=== PATIENT | female | born 1935 | race Caucasian/White ===

== ENCOUNTER 2016-10-01 09:40 | Outpatient (CLI) | payer MEDICARE, OTHER | END 2016-10-01 09:41 | disposition home or self-care (01) | DX: M79.605 Pain in left leg (principal); G83.10 Monoplegia of lower limb affecting unspecified side; F03.90 Unspecified dementia, unspecified severity, without behavioral disturbance, psychotic disturbance, mood disturbance, and anxiety; R26.89 Other abnormalities of gait and mobility ==

== ENCOUNTER 2016-10-04 13:43 | Outpatient (CLI) | payer MEDICARE, OTHER | END 2016-10-04 13:44 | disposition home or self-care (01) | DX: N64.4 Mastodynia (principal) ==

== ENCOUNTER 2017-08-10 01:10 | Inpatient (IN) | payer MEDICARE, OTHER ==
--- NOTE | 2017-08-10 01:39 | ED Physician Documentation ---
PD HPI GI BLEED - Stated complaint Stated Complaint: GI BLEED - Chief complaint Chief Complaint: Abd Pain - History obtained from History obtained from: Patient, Family - History of Present Illness Timing - onset: Today, How many days ago (has had dark stool for few days, with change from firm to soft/diarrheal stools this morning, and with nausea/ vomiting and coffee-ground emesis today into this evening. Noted onset of swelling of lower lip and has sore throat the past hour or two.) Timing - duration: Days (for dark stool, but just today for vomiting coffeeground material and having upper abd pain.) Timing - details: Gradual onset, Still present Associated symptoms: Vomiting, Coffee ground emesis, BRBPR (more today), Black/ tarry stool (few days), Abdominal pain (epigastric today after vomiting). No: Constipation, Near syncope / syncope, Loss of appetite Contributing factors: No: Sick contact, Bad food, Travel, Recent antibiotics, Alcohol use, NSAID use Improved by: Vomiting Worsened by: Eating Similar symptoms before: Has not had sx before Recently seen: Not recently seen Review of Systems Constitutional: denies: Fever, Chills Nose: denies: Rhinorrhea / runny nose, Congestion Throat: denies: Sore throat Cardiac: denies: Chest pain / pressure Respiratory: denies: Cough GI: reports: Abdominal Pain, Nausea, Vomiting, Hematemesis, Bloody / black stool : denies: Dysuria, Frequency Skin: denies: Rash, Lesions Neurologic: reports: Generalized weakness. denies: Focal weakness, Numbness, Near syncope, Altered mental status, Headache Endocrine: denies: Weight loss, Easy bruising / bleeding Immunocompromised: denies: Immunocompromised PD PAST MEDICAL HISTORY - Past Medical History Cardiovascular: Hypertension, Angina Endocrine/Autoimmune: None GI: Chronic constipation TEST MAN: Ectopic : Incontinence, Chronic bladder infection HEENT: None Psych: Depression, Anxiety, Panic attacks Musculoskeletal: None Derm: None - Past Surgical History Past Surgical History: Yes General: Colonoscopy /TEST MAN: Hysterectomy HEENT: Cataracts, Tonsil/Adenoidectomy - Present Medications Home Medications: Ambulatory Orders Medication Instructions Recorded Confirmed Amlodipine Besylate 5 mg PO DAILY 04/28/13 08/10/17 Cholecalciferol (Vitamin D3) 2,000 unit PO DAILY 04/28/13 08/10/17 [Vitamin D] Ezetimibe/Simvastatin [Vytorin 1 each PO DAILY 04/28/13 08/10/17 10-40 mg Tablet] FLUoxetine [PROzac] 20 mg PO DAILY 04/28/13 08/10/17 Lisinopril [Zestril] 10 mg PO DAILY 04/28/13 08/10/17 Omeprazole [PriLOSEC] 20 mg PO DAILY 04/28/13 08/10/17 Triamterene/Hydrochlorothiazid 1 each PO DAILY 04/28/13 08/10/17 [Triamterene-Hctz 37.5-25 mg Tb] - Allergies Allergies/Adverse Reactions: Allergies Allergy/AdvReac Type Severity Reaction Status Date / Time No Known Drug Allergies Allergy Verified 08/10/17 01:21 - Social History Does the pt smoke?: Yes Smoking Status: Current every day smoker Does the pt drink ETOH?: Yes Does the pt have substance abuse?: No - Family History Family history: reports: Non contributory PD ED PE NORMAL - Vitals Vital signs reviewed: Yes - General General: Alert and oriented X 3, Well developed/nourished, Other (appears nauseated and has emesis of coffeeground material which is gastroccult positive during interview. ) - HEENT HEENT: No: Pharynx benign (there is mild edema of lower lip without apparent injury. There is mild edema of uvula. Pallate and posterior pharynx as well as tongue do not look swollen. ) - Neck Neck: Supple, no meningeal sign, No adenopathy - Cardiac Cardiac: RRR, No murmur - Respiratory Respiratory: Clear bilaterally - Abdomen Abdomen: Normal bowel sounds, Soft, Non distended, No organomegaly, Other (mild epigastric tenderness without guarding. ) - Female Female : Deferred - Rectal Rectal: Deferred - Back Back: No CVA TTP - Derm Derm: Normal color, Warm and dry - Extremities Extremities: No deformity, No tenderness to palpate, Normal ROM s pain, No edema - Neuro Neuro: Alert and oriented X 3, No motor deficit, Normal speech - Psych Psych: Normal mood, Normal affect Results - Vitals Vitals: Vital Signs - 24 hr 08/10/17 08/10/17 08/10/17 01:17 01:40 02:49 Temperature 36.9 C Heart Rate 93 92 91 Respiratory 18 15 12 Rate Blood Pressure 155/74 H 150/72 H 156/70 H O2 Saturation 97 100 98 Oxygen O2 Source Room air - Labs Labs: Laboratory Tests 08/10/17 08/10/17 08/10/17 01:30 01:30 01:30 WBC 14.2 H RBC 4.99 Hgb 15.4 Hct 45.8 MCV 91.8 MCH 30.8 MCHC 33.6 RDW 13.7 Plt Count 250 MPV 7.9 Neut # Not Reportable Lymph # Not Reportable Hall # Not Reportable Eos # Not Reportable Baso # Not Reportable Absolute Nucleated RBC Not Reportable Total Counted 100 Band Neuts % (Manual) 3 Nucleated RBC % Not Reportable Neutrophils # (Manual) 13.3 H Lymphocytes # (Manual) 0.3 L Monocytes # (Manual) 0.6 Differential Comment MANUAL DIFFERENTIAL Platelet Estimate NORMAL (130-450,000) RBC Morph Micro Appear NORMAL APPEARANCE Sodium 138 Potassium 3.4 L Chloride 103 Carbon Dioxide 22 Anion Gap 13.0 BUN 21 H Creatinine 0.8 Estimated GFR (MDRD) 69 L Glucose 195 H Calcium 9.6 Magnesium 1.9 Total Bilirubin 0.5 AST 26 ALT 17 Alkaline Phosphatase 92 Total Protein 7.7 Albumin 4.4 Globulin 3.3 Albumin/Globulin Ratio 1.3 Lipase 15 L H. pylori IgG Antibody Negative Blood Type Antibody Screen 08/10/17 02:25 WBC RBC Hgb Hct MCV MCH MCHC RDW Plt Count MPV Neut # Lymph # Hall # Eos # Baso # Absolute Nucleated RBC Total Counted Band Neuts % (Manual) Nucleated RBC % Neutrophils # (Manual) Lymphocytes # (Manual) Monocytes # (Manual) Differential Comment Platelet Estimate RBC Morph Micro Appear Sodium Potassium Chloride Carbon Dioxide Anion Gap BUN Creatinine Estimated GFR (MDRD) Glucose Calcium Magnesium Total Bilirubin AST ALT Alkaline Phosphatase Total Protein Albumin Globulin Albumin/Globulin Ratio Lipase H. pylori IgG Antibody Blood Type O POSITIVE Antibody Screen NEGATIVE PD MEDICAL DECISION MAKING - ED course Complexity details: reviewed results (blood count is okay. Vitals are stable. Less nauseated with meds. So concern for ongoing bleeding and watching blood count/vitals, and also concern for apparent angioedema. I don't see it related to GI bleed per se. She is on Lisinopril and consider if caused by that as associated with acute other illness, or allergic reaction perhaps. So treated with antihistamine and steroid. Treated stomach with Famotidine for stomach/ allergic reaction both. ), re-evaluated patient, considered differential, d/w patient, d/w jewelry consultant (Dr. Pimentel, Hospitalist. ) Departure - Departure Disposition: ED Place in Observation Clinical Impression: Hematemesis with nausea GI bleeding Qualifiers: GI bleed type/associated pathology: unspecified gastrointestinal hemorrhage type Qualified Code(s): K92.2 - Gastrointestinal hemorrhage, unspecified Angioedema Qualifiers: Encounter type: initial encounter Qualified Code(s): T78.3XXA - Angioneurotic edema, initial encounter Condition: Stable Record reviewed to determine appropriate education?: Yes
[2017-08-10] MEDS ORDERED: SODIUM CHLORIDE 0.9% 1,000 ML IV ONE (02:10)
[2017-08-10] MEDS ORDERED: diphenhydrAMINE INJ 50 MG/ML VIAL IVP STA (02:10)
[2017-08-10] MEDS ORDERED: FAMOTIDINE 20 MG/50 ML 50 ML IV ONE ×2 (02:10→02:20)
[2017-08-10] MEDS ORDERED: DEXAMETHASONE 10 MG/ML VIAL IVP STA (02:10)
[2017-08-10] MEDS ORDERED: ONDANSETRON 4 MG/2 ML VIAL IVP STA (02:11)
[2017-08-10] MEDS ORDERED: LIDOCAINE VISCOUS 2% 15 ML UDC MM STA (02:13)
[2017-08-10] MEDS ORDERED: MAG HYDROX/AL HYDROX/SIMETH 30 ML UDC PO STA (02:13)
[2017-08-10] MEDS ORDERED: ONDANSETRON 4 MG/2 ML VIAL ONE (02:20)
[2017-08-10] MEDS ORDERED: diphenhydrAMINE INJ 50 MG/ML VIAL ONE (02:20)
[2017-08-10] MEDS ORDERED: DEXAMETHASONE 10 MG/ML VIAL ONE (02:20)
[2017-08-10 02:25] LABS: BASOPHILS % (AUTO) 0.1 %; HCT - HEMATOCRIT 45.8 % (37.0-47.0); HGB - HEMOGLOBIN 15.4 g/dL (12.0-16.0); LYMPHOCYTES % (AUTO) 2.5 %; MEAN CORPUSCULAR HEMOGLOBIN 30.8 pg (27.0-31.0); MEAN CORPUSCULAR HGB CONC 33.6 g/dL (32.0-36.0); MEAN CORPUSCULAR VOLUME 91.8 fL (81.0-99.0); MEAN PLATELET VOLUME 7.9 fL (7.9-10.8); MONOCYTES % (AUTO) 2.2 %; NEUTROPHILS % (AUTO) 95.2 %; RED BLOOD COUNT 4.99 10^6/uL (4.20-5.40); RED CELL DISTRIBUTION WIDTH 13.7 % (12.0-15.0); UNCORRECTED WHITE BLOOD COUNT 14.2 x10^3/uL; WHITE BLOOD COUNT 14.2 x10^3/uL (4.8-10.8)
[2017-08-10 02:29] LABS: ALBUMIN/GLOBULIN RATIO 1.3 (1.0-2.2); BILIRUBIN,TOTAL 0.5 mg/dL (0.2-1.0); CALCIUM 9.6 mg/dL (8.5-10.3); CREATININE 0.8 mg/dL (0.4-1.0); MAGNESIUM 1.9 mg/dL (1.7-2.8); POTASSIUM 3.4 mmol/L (3.5-5.0); TOTAL PROTEIN 7.7 g/dL (6.7-8.2)
[2017-08-10] MEDS ORDERED: LIDOCAINE VISCOUS 2% 15 ML UDC MM ONE (02:35)
[2017-08-10] MEDS ORDERED: MAG HYDROX/AL HYDROX/SIMETH 30 ML UDC ONE (02:35)
[2017-08-10 02:42] LABS: H. PYLORI IGG ANTIBODY Negative (Negative); HPYLORI NEG QC Negative (Negative); HPYLORI POS QC POSITIVE (Positive)
[2017-08-10 02:51] LABS: BAND NEUTROPHILS % (MANUAL) 3 %; LYMPHOCYTES % (MANUAL) 2 %; NEUTROPHILS % (MANUAL) 91 %; NP AUTO DIFFERENTIAL? YES; NP MAN DIFFERENTIAL? NO; PLATELET ESTIMATE, MANUAL NORMAL (130-450,000) (NORMAL); TOTAL CELLS COUNTED 100
[2017-08-10] MEDS ORDERED: HYDROcod/ACETAM 5/325 MG TABLET PO PRN (03:03)
[2017-08-10] MEDS ORDERED: PROCHLORPERAZINE 10 MG/2 ML VIAL IVP PRN (03:03)
[2017-08-10] MEDS ORDERED: PROMETHAZINE 25 MG/1 ML VIAL IM PRN (03:03)
[2017-08-10] MEDS ORDERED: SODIUM CHLORIDE FLUSH 0.9% 10 ML SYRINGE IVP PRN (03:03)
[2017-08-10] MEDS ORDERED: ONDANSETRON 4 MG/2 ML VIAL IVP PRN (03:03)
[2017-08-10] MEDS ORDERED: HYDROcod/ACETAM 10 MG/325 MG TABLET PO PRN (03:03)
[2017-08-10] MEDS ORDERED: ACETAMINOPHEN 325 MG TABLET PO PRN (03:03)
[2017-08-10] MEDS ORDERED: SODIUM CHLORIDE 0.9% 1,000 ML IV SCH ×2 (04:00→19:00)
[2017-08-10] MEDS ORDERED: POTASSIUM CHLORIDE 20 MEQ TABLET PO STA (04:51)
--- NOTE | 2017-08-10 05:10 | HISTORY & PHYSICAL EXAMINATION ---
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 According to the patient and her family the patient has been having dark stools for the last 3-4 days. She states that today the symptoms became much worse and she began having diarrhea with bloody stools and vomiting with coffee ground emesis. The patient states that she also began having a cough after vomiting last night. She states that she has had a sore throat. The patient's family state they have noticed that she has been increasingly fatigued over the last 3 or 4 days and has not been sleeping well. According to the patient's family the patient has also experienced a 25 pound weight loss over the last year which they attributed to her donepezil. They noticed that when the patient was coughing up there was some blood and they also noted that her emesis was coffee ground almost black looking. The patient's did look at the patient's bowel movement which he states was a bloody brown color. After arrival to the emergency department the family also noticed that the patient had swelling of the bottom of her lip but the patient denied any difficulties swallowing or feeling of her throat closing on her. The patient also denied any hives or itching. Patient denies any headaches, blurred vision, runny nose, chest pain, shortness of air, fevers, chills, she does have some mild abdominal pain in the epigastric area. She denies any constipation, urinary urgency, urinary frequency or dysuria. The patient denies any muscle aches, joint pains, joint swelling, back pain, neck stiffness, changes in appetite or any focal neurologic deficits. On presentation to the emergency department the patient was afebrile, tachycardic with heart rate in the 90s and hypertensive without any respiratory distress. The patient did have an episode of emesis with coffee-ground emesis which was guaiac positive. The patient's hemoglobin however was stable at 15.4. The patient did have a mild leukocytosis of 14.2 with a left shift. The patient's lab work did reveal a slight hypokalemia of 3.4 and an elevated glucose of 195. The patient denied any history of diabetes. The patient's H. pylori was negative. The patient remained tachycardic in the 90s but blood pressure remained stable. The patient was placed in observation for a likely upper GI bleed. Patient was given a PPI in the emergency department. History - Past Medical History Cardiovascular: reports: Hypertension, Angina Respiratory: reports: None Neuro: reports: Dementia, Fainting Endocrine/Autoimmune: reports: None GI: reports: Chronic constipation PODIATRIST ORTHOPEDIC: reports: Ectopic : reports: Incontinence, Chronic bladder infection HEENT: reports: None Psych: reports: Depression, Anxiety, Panic attacks Musculoskeletal: reports: Other (Thrombophlebitis) Derm: reports: None MRSA Hx?: No Other Past Medical History: Dementia, blood clots in left leg 2 years had veins cauterized and been better since. - Past Surgical History General: reports: Colonoscopy /PODIATRIST ORTHOPEDIC: reports: Hysterectomy Cardiovascular: reports: Vascular surgery HEENT: reports: Cataracts, Tonsil/Adenoidectomy - Family & Social History Family History: Mother: (Mother of a pulmonary embolism, Grandmother lived to be 102), Father: , [place] (Father of an SD at the age of 41), Brother: Alive and Well (Brother had polio), Other family: Living arrangement: At home Living Situation: With spouse/s.o. Social History Notes: The patient is originally from [place] she has been to her for 50 years. Her was in the [employer] and they have been living in [facility] since 1965. They currently live in [place]. The patient has 2 children 1 of whom is bedside. The patient has never smoked, she does like to drink wine in the evening and denies any illicit drug use. - POLST Patient has POLST: No POLST Status: Full Code Meds/Allgy - Home Medications Home Medications: Ambulatory Orders Medication Instructions Recorded Confirmed Amlodipine Besylate 5 mg PO DAILY 04/28/13 08/10/17 Cholecalciferol (Vitamin D3) 2,000 unit PO DAILY 04/28/13 08/10/17 [Vitamin D] Ezetimibe/Simvastatin [Vytorin 1 each PO DAILY 04/28/13 08/10/17 10-40 mg Tablet] FLUoxetine [PROzac] 20 mg PO DAILY 04/28/13 08/10/17 Lisinopril [Zestril] 10 mg PO DAILY 04/28/13 08/10/17 Omeprazole [PriLOSEC] 20 mg PO DAILY 04/28/13 08/10/17 Triamterene/Hydrochlorothiazid 1 each PO DAILY 04/28/13 08/10/17 [Triamterene-Hctz 37.5-25 mg Tb] - Allergies Allergies/Adverse Reactions: Allergies Allergy/AdvReac Type Severity Reaction Status Date / Time No Known Drug Allergies Allergy Verified 08/10/17 01:21 Review of Systems - Other Findings Other Findings: A comprehensive review of systems was performed the pertinent positives and negatives are stated above in the HPI and the remainder of the review of systems is negative. Exam - Vital Signs Reviewed Vital Signs: Yes Vital Signs: Vital Signs x48h Pulse Resp BP Pulse Ox 08/10/17 03:59 86 18 147/84 H 100 08/10/17 03:27 93 19 153/67 H 98 - Physical Exam General Appearance: positive: No acute distress, Alert Eyes Bilateral: positive: Normal inspection, PERRL, EOMI, No lid inflammation, Conjunctivae nml, No scleral icterus ENT: positive: Pharynx nml, Dry mucous membranes, Other (Patient has a swollen lower lip and mild swelling of her uvula but no swelling of her tongue). negative: Purulent nasal drainage, Pharyngeal erythema, Oral lesions Neck: positive: Nml inspection, Thyroid nml, No JVD, Trachea midline. negative : Thyromegaly, Lymphadenopathy (R), Lymphadenopathy (L), Carotid bruit, Tracheal deviation Respiratory: positive: Chest non-tender, No respiratory distress, Breath sounds nml. negative: Wheezes, Rales, Rhonchi Cardiovascular: positive: No murmur, No gallop, Tachycardia Peripheral Pulses: positive: 2+ Abdomen: positive: No organomegaly, Nml bowel sounds, No distention, Tenderness (Mild tenderness in the epigastric region with no peritoneal signs). negative: Guarding, Rebound, Hepatomegaly Rectal: positive: Bloody stool Back: positive: Nml inspection. negative: CVA tenderness (R), CVA tenderness (L ) Skin: positive: Color nml, No rash, Dry. negative: Cyanosis, Pallor Extremities: positive: Non-tender, Full ROM, Nml appearance, No pedal edema Neurologic/Psychiatric: positive: Oriented x3, CN's nml (2-12), Motor nml, Sensation nml, Mood/affect nml, Other (Memory deficit due to dementia) Conclusion/Plan - Problem List (1) GI bleeding Conclusion/Plan: The patient presented with black stools for 3 or 4 days and increased generalized fatigue. The patient had bowel movement with bloody stools and has been having vomiting with coffee-ground emesis today. The patient's emesis was guaiac positive. The patient's hemoglobin is stable and blood pressure are stable. Patient most likely appears to be having an upper GI bleed given the coffee-ground emesis and dark stools. The GI bleed may be worsening as she had bright red blood according to the . Plan: 2 large-bore IVs Monitor H&H every 6 hours Transfuse if hemoglobin less than 7 or if patient becomes hemodynamically stable with large drop in hemoglobin Place on IV Protonix twice daily Surgery consult for possible EGD and/or colonoscopy N.p.o. after midnight IV antiemetics IV fluid Qualifiers: GI bleed type/associated pathology: unspecified gastrointestinal hemorrhage type Qualified Code(s): K92.2 - Gastrointestinal hemorrhage, unspecified (2) Angioedema Conclusion/Plan: Patient appears to have mild angioedema on examination. She has swelling of her lower lip and uvula. The patient was given a dose of steroid and famotidine in the emergency department. The swelling appears to be stable and she does not have any difficulties in breathing or swallowing. The patient also has no tongue swelling and no hives or itching. She is on lisinopril and it is possible that in the setting of stress with a GI bleed this may have set off the angioedema. For now we will hold the patient's lisinopril and continue a PPI. I will not place her on any further steroids given that she is having a possible GI bleed. Qualifiers: Encounter type: initial encounter Qualified Code(s): T78.3XXA - Angioneurotic edema, initial encounter (3) Hypokalemia Conclusion/Plan: The patient's potassium on presentation is 3.4. This is likely secondary to the patient's nausea and vomiting. The patient will be given p.o. replacement for her potassium. We will continue to monitor the patient's potassium (4) Hypertension Conclusion/Plan: The patient has history of hypertension on presentation to the emergency department the patient does have an elevated blood pressure however given the GI bleed we will hold all antihypertensive medications unless patient's blood pressure become significantly elevated as we are concerned for possibility of hypotension. The patient will no longer be placed on lisinopril given her mild angioedema on presentation. Qualifiers: Hypertension type: essential hypertension Qualified Code(s): I10 - Essential (primary) hypertension (5) Depression Conclusion/Plan: Patient has history of depression and is on Prozac at home. We will continue the patient's home dose of Prozac. (6) Hyperglycemia Conclusion/Plan: The patient's blood glucose is elevated on presentation at 195. This could be a stress response as she does not have any previous history of diabetes. We will check her hemoglobin A1c and hold off on any insulin or glucose checks at this time until her A1c is back. - Lab Results Lab results reviewed: Yes Fish Bones: 08/10/17 01:30 08/10/17 01:30 Other Lab Results: Laboratory Results WBC 14.2 x10^3/uL (4.8-10.8) H 08/10/17 01:30 RBC 4.99 10^6/uL (4.20-5.40) 08/10/17 01:30 Hgb 15.4 g/dL (12.0-16.0) 08/10/17 01:30 Hct 45.8 % (37.0-47.0) 08/10/17 01:30 MCV 91.8 fL (81.0-99.0) 08/10/17 01:30 MCH 30.8 pg (27.0-31.0) 08/10/17 01:30 MCHC 33.6 g/dL (32.0-36.0) 08/10/17 01:30 RDW 13.7 % (12.0-15.0) 08/10/17 01:30 Plt Count 250 10^3/uL (130-450) 08/10/17 01:30 MPV 7.9 fL (7.9-10.8) 08/10/17 01:30 Neut # Not Reportable 08/10/17 01:30 Lymph # Not Reportable 08/10/17 01:30 Orange # Not Reportable 08/10/17 01:30 Eos # Not Reportable 08/10/17 01:30 Baso # Not Reportable 08/10/17 01:30 Absolute Nucleated RBC Not Reportable 08/10/17 01:30 Total Counted 100 08/10/17 01:30 Band Neuts % (Manual) 3 % (0-10) 08/10/17 01:30 Nucleated RBC % Not Reportable 08/10/17 01:30 Neutrophils # (Manual) 13.3 10^3/uL (1.5-6.6) H 08/10/17 01:30 Lymphocytes # (Manual) 0.3 10^3/uL (1.5-3.5) L 08/10/17 01:30 Monocytes # (Manual) 0.6 10^3/uL (0.0-1.0) 08/10/17 01:30 Differential Comment MANUAL DIFFERENTIAL 08/10/17 01:30 Platelet Estimate NORMAL (130-450,000) (NORMAL) 08/10/17 01:30 RBC Morph Micro Appear NORMAL APPEARANCE (NORMAL) 08/10/17 01:30 Sodium 138 mmol/L (135-145) 08/10/17 01:30 Potassium 3.4 mmol/L (3.5-5.0) L 08/10/17 01:30 Chloride 103 mmol/L (101-111) 08/10/17 01:30 Carbon Dioxide 22 mmol/L (21-32) 08/10/17 01:30 Anion Gap 13.0 (6-13) 08/10/17 01:30 BUN 21 mg/dL (6-20) H 08/10/17 01:30 Creatinine 0.8 mg/dL (0.4-1.0) 08/10/17 01:30 Estimated GFR (MDRD) 69 (>89) L 08/10/17 01:30 Glucose 195 mg/dL (70-100) H 08/10/17 01:30 Calcium 9.6 mg/dL (8.5-10.3) 08/10/17 01:30 Magnesium 1.9 mg/dL (1.7-2.8) 08/10/17 01:30 Total Bilirubin 0.5 mg/dL (0.2-1.0) 08/10/17 01:30 AST 26 IU/L (10-42) 08/10/17 01:30 ALT 17 IU/L (10-60) 08/10/17 01:30 Alkaline Phosphatase 92 IU/L (42-121) 08/10/17 01:30 Total Protein 7.7 g/dL (6.7-8.2) 08/10/17 01:30 Albumin 4.4 g/dL (3.2-5.5) 08/10/17 01:30 Globulin 3.3 g/dL (2.1-4.2) 08/10/17 01:30 Albumin/Globulin Ratio 1.3 (1.0-2.2) 08/10/17 01:30 Lipase 15 U/L (22-51) L 08/10/17 01:30 H. pylori IgG Antibody Negative (Negative) 08/10/17 01:30 Blood Type O POSITIVE 08/10/17 02:25 Antibody Screen NEGATIVE 08/10/17 02:25 - Diagnostic Imaging Results Diagnostic Imaging Results Comments: No imaging studies were performed - EKG Results EKG Findings: No EKG Issues/Core Measures - Anticipated LOS Anticipated Stay Length: Less than 2 midnights - DVT/VTE - Prophylaxis VTE/DVT Device ordered at admit?: Yes
[2017-08-10] MEDS: PHENOL THROAT SPRAY 177 ML MM PRN (05:41)
[2017-08-10] MEDS: SODIUM CHLORIDE FLUSH 0.9% 10 ML SYRINGE IVP SCH ×3 (05:45→21:48)
[2017-08-10 05:59] LABS: BASOPHILS % (AUTO) 0.1 %; HCT - HEMATOCRIT 44.4 % (37.0-47.0); HGB - HEMOGLOBIN 14.6 g/dL (12.0-16.0); LYMPHOCYTES % (AUTO) 2.1 %; MEAN CORPUSCULAR HEMOGLOBIN 30.3 pg (27.0-31.0); MEAN CORPUSCULAR HGB CONC 32.9 g/dL (32.0-36.0); MEAN CORPUSCULAR VOLUME 92.1 fL (81.0-99.0); MEAN PLATELET VOLUME 7.5 fL (7.9-10.8); NEUTROPHILS % (AUTO) 96.8 %; RED BLOOD COUNT 4.82 10^6/uL (4.20-5.40); RED CELL DISTRIBUTION WIDTH 13.8 % (12.0-15.0); UNCORRECTED WHITE BLOOD COUNT 14.1 x10^3/uL; WHITE BLOOD COUNT 14.1 x10^3/uL (4.8-10.8)
[2017-08-10 06:07] LABS: ALBUMIN/GLOBULIN RATIO 1.3 (1.0-2.2); BILIRUBIN,TOTAL 0.7 mg/dL (0.2-1.0); CREATININE 0.7 mg/dL (0.4-1.0); POTASSIUM 3.3 mmol/L (3.5-5.0); TOTAL PROTEIN 7.4 g/dL (6.7-8.2)
[2017-08-10 06:10] LABS: INR 1.2 (0.8-1.2); PT - PROTHROMBIN TIME 13.6 secs (9.9-12.6)
[2017-08-10] MEDS ORDERED: MAGIC MOUTHWASH 120 ML BOTTLE PO PRN (06:10)
[2017-08-10 06:43] LABS: HEMOGLOBIN A1C 0.57 g/dL
[2017-08-10 06:53] LABS: BAND NEUTROPHILS % (MANUAL) 12 %; LYMPHOCYTES % (MANUAL) 2 %; NEUTROPHILS % (MANUAL) 85 %; NP AUTO DIFFERENTIAL? YES; NP MAN DIFFERENTIAL? NO; PLATELET ESTIMATE, MANUAL NORMAL (130-450,000) (NORMAL); TOTAL CELLS COUNTED 100
[2017-08-10] MEDS: POTASSIUM CHLOR 10 MEQ/100 ML 10 MEQ/100 ML BAG IV SCH ×2 (07:57→08:24)
--- NOTE | 2017-08-10 07:57 | XRAY Preliminary Report ---
Exam: XR CHEST 1 VIEW IMPRESSION: 1. Small lung volumes. 2. Small left lateral lung base opacity, probably a atelectasis. Concurrent aspiration and/or pneumon ia difficult to exclude with certainty. 3. Medium-sized hiatal hernia. [facility] SITE ID: [id number]
--- NOTE | 2017-08-10 08:00 | XRAY Report ---
EXAM: CHEST RADIOGRAPHY EXAM DATE: 08/10/2017 06:22 AM. CLINICAL HISTORY: Left sided rib pain. COMPARISON: 04/28/2013 TECHNIQUE: 1 view. FINDINGS: Lungs/Pleura: Small streaky left lateral lung base opacity. Lung volumes are small. No effusion or de finite pneumothorax. Mediastinum: Within exam limitations, the cardiomediastinal contour is normal. Other: Medial sized hiatal hernia. IMPRESSION: 1. Small lung volumes. 2. Small left lateral lung base opacity, probably a atelectasis. Concurrent aspiration and/or pneumon ia difficult to exclude with certainty. 3. Medium-sized hiatal hernia. [facility] Referring Provider Line: [phone] SITE ID: [id number]
[2017-08-10] MEDS: PANTOPRAZOLE 40 MG VIAL IVP SCH ×2 (08:14→21:48)
[2017-08-10] MEDS: POLYETHYLENE GLYCOL 3350 17 GM PACKET PO SCH (08:15)
[2017-08-10 11:10] LABS: BASOPHILS # (AUTO) 0.1 10^3/uL (0.0-0.1); BASOPHILS % (AUTO) 0.6 %; EOSINOPHILS % (AUTO) 0.3 %; HCT - HEMATOCRIT 41.6 % (37.0-47.0); HGB - HEMOGLOBIN 14.1 g/dL (12.0-16.0); LYMPHOCYTES # (AUTO) 0.4 10^3/uL (1.5-3.5); LYMPHOCYTES % (AUTO) 3.3 %; MEAN CORPUSCULAR HEMOGLOBIN 30.7 pg (27.0-31.0); MEAN CORPUSCULAR HGB CONC 33.9 g/dL (32.0-36.0); MEAN CORPUSCULAR VOLUME 90.7 fL (81.0-99.0); MEAN PLATELET VOLUME 7.6 fL (7.9-10.8); MONOCYTES # (AUTO) 0.3 10^3/uL (0.0-1.0); MONOCYTES % (AUTO) 2.6 %; NEUTROPHILS % (AUTO) 93.2 %; RED BLOOD COUNT 4.58 10^6/uL (4.20-5.40); RED CELL DISTRIBUTION WIDTH 13.8 % (12.0-15.0); UNCORRECTED WHITE BLOOD COUNT 12.9 x10^3/uL; WHITE BLOOD COUNT 12.9 x10^3/uL (4.8-10.8)
[2017-08-10] MEDS ORDERED: HALOPERIDOL 5 MG/ML VIAL IVP SCH ×2 (13:18→19:59)
[2017-08-10] MEDS ORDERED: OLANZapine 10 MG VIAL IM SCH (14:27)
[2017-08-10] MEDS ORDERED: IOPAMIDOL-300 100 ML VIAL ONE (15:36)
[2017-08-10] MEDS ORDERED: IOPAMIDOL-300 100 ML VIAL IVP ONE ×2 (16:22→16:30)
--- NOTE | 2017-08-10 16:57 | CT Report ---
EXAM: CT ABDOMEN WITHOUT AND WITH CONTRAST EXAM DATE: 08/10/2017 04:20 PM. HISTORY: GI bleed, weight loss. COMPARISON: CT abdomen/pelvis 05/18/2013. TECHNIQUE: Routine helical CT imaging was performed through the abdomen before and after administrati on of IV contrast: 75ML OF ISOVUE 300. Enteric contrast: No. Reconstruction: Coronal and sagittal. In accordance with CT protocol optimization, one or more of the following dose reduction techniques w ere utilized for this exam: automated exposure control, adjustment of mA and/or KV based on patient s ize, or use of iterative reconstructive technique. FINDINGS: Lung Bases: Mild bibasal atelectasis or infiltrate. Liver: Normal. No masses. Gallbladder/Bile Ducts: Unremarkable. Spleen: Normal. Pancreas: Normal. No masses or ductal obstruction. Adrenal Glands: Normal. Kidneys: No hydronephrosis or convincing solid mass. Bilateral renal cortical hypodensities, similar to prior suggestive of cysts. Peritoneal Cavity/Bowel: There is a moderate to large esophageal hiatal hernia. There is possible wal l thickening and intraluminal irregularity. There is mild diverticulosis without convincing focal bibi dence of acute diverticulitis. There is diffuse colonic wall thickening involving the splenic flexure through the proximal sigmoid colon, suggesting nonspecific colitis. No pneumatosis. No pneumoperiton eum. No organized fluid collection. Small bowel is unremarkable. The appendix is well visualized and normal. Vasculature: No aneurysms or other significant abnormality. Celiac artery, SMA, NOVA appear patent. No portal venous gas. Portal vein and hepatic veins appear patent. Bones: No significant abnormality. Other: None. IMPRESSION: Comparison CT 05/18/2013. 1. Diffuse descending and proximal sigmoid colonic wall thickening suggesting nonspecific colitis. Co nsider infectious, inflammatory etiologies. Ischemia considered less likely. 2. Moderate to large esophageal hiatal hernia with possible wall thickening and intraluminal irregula rity. Endoscopic and/or fluoroscopic upper GI examination could be considered for further evaluation. 3. Mild bibasal atelectasis or infiltrate. 4. Other findings as noted above. [facility] Referring Provider Line: [phone] SITE ID: [id number]
[2017-08-10 17:08] LABS: BASOPHILS # (AUTO) 0.1 10^3/uL (0.0-0.1); BASOPHILS % (AUTO) 0.5 %; HCT - HEMATOCRIT 41.1 % (37.0-47.0); HGB - HEMOGLOBIN 13.6 g/dL (12.0-16.0); LYMPHOCYTES # (AUTO) 0.5 10^3/uL (1.5-3.5); LYMPHOCYTES % (AUTO) 3.7 %; MEAN CORPUSCULAR HEMOGLOBIN 30.5 pg (27.0-31.0); MEAN CORPUSCULAR VOLUME 92.3 fL (81.0-99.0); MEAN PLATELET VOLUME 7.7 fL (7.9-10.8); MONOCYTES # (AUTO) 0.6 10^3/uL (0.0-1.0); MONOCYTES % (AUTO) 4.5 %; NEUTROPHILS % (AUTO) 91.3 %; RED BLOOD COUNT 4.46 10^6/uL (4.20-5.40); RED CELL DISTRIBUTION WIDTH 13.8 % (12.0-15.0); UNCORRECTED WHITE BLOOD COUNT 14.2 x10^3/uL; WHITE BLOOD COUNT 14.2 x10^3/uL (4.8-10.8)
[2017-08-10 18:31] LABS: BILIRUBIN,URINE NEGATIVE (NEGATIVE); PH,URINE 6.5 PH (5.0-7.5)
[2017-08-10 18:32] LABS: UA CHARGE (STRIP ONLY) YES; UR CULTURE IF IND NOT INDICATED
[2017-08-10] MEDS ORDERED: LORazepam 2 MG/ML SYRINGE IVP SCH (20:00)
[2017-08-10] MEDS: metroNIDAZOLE 500 MG/100 ML 500 MG/100 ML BAG IV SCH (20:26)
[2017-08-10] MEDS ORDERED: LORazepam 2 MG/ML SYRINGE ONE (20:30)
[2017-08-10] MEDS ORDERED: CIPROFLOXACIN 400 MG/200 ML 200 ML IV SCH (21:00)
[2017-08-11] MEDS: metroNIDAZOLE 500 MG/100 ML 500 MG/100 ML BAG IV SCH ×4 (03:07→20:27)
[2017-08-11] MEDS: SODIUM CHLORIDE FLUSH 0.9% 10 ML SYRINGE IVP SCH ×3 (04:51→20:28)
[2017-08-11] MEDS ORDERED: LORazepam 2 MG/ML SYRINGE IVP STA (06:01)
[2017-08-11 06:08] LABS: BASOPHILS % (AUTO) 0.1 %; CALCIUM 8.8 mg/dL (8.5-10.3); CREATININE 0.7 mg/dL (0.4-1.0); EOSINOPHILS % (AUTO) 0.1 %; HCT - HEMATOCRIT 36.8 % (37.0-47.0); HGB - HEMOGLOBIN 12.2 g/dL (12.0-16.0); LYMPHOCYTES # (AUTO) 0.9 10^3/uL (1.5-3.5); LYMPHOCYTES % (AUTO) 7.9 %; MEAN CORPUSCULAR HEMOGLOBIN 30.6 pg (27.0-31.0); MEAN CORPUSCULAR HGB CONC 33.1 g/dL (32.0-36.0); MEAN CORPUSCULAR VOLUME 92.5 fL (81.0-99.0); MEAN PLATELET VOLUME 7.8 fL (7.9-10.8); MONOCYTES # (AUTO) 0.7 10^3/uL (0.0-1.0); MONOCYTES % (AUTO) 6.1 %; NEUTROPHILS # (AUTO) 9.7 10^3/uL (1.5-6.6); NEUTROPHILS % (AUTO) 85.8 %; POTASSIUM 3.3 mmol/L (3.5-5.0); RED BLOOD COUNT 3.98 10^6/uL (4.20-5.40); RED CELL DISTRIBUTION WIDTH 14.2 % (12.0-15.0); UNCORRECTED WHITE BLOOD COUNT 11.2 x10^3/uL; WHITE BLOOD COUNT 11.2 x10^3/uL (4.8-10.8)
[2017-08-11] MEDS ORDERED: LORazepam 2 MG/ML VIAL ONE (06:16)
[2017-08-11] MEDS ORDERED: LORazepam 0.5 MG TABLET PO ONE (11:18)
--- NOTE | 2017-08-11 11:23 | PROVIDER PROGRESS NOTE ---
Assessment/Plan - Problem List (1) Colitis Assessment/Plan: CT of abdomen shows diffuse colitis. loss control consultant is following, appreciate his input, believes this is ischemic colitis. Pt will need bowel rest, iv hydration, follow labs and WBC. Continue iv fluids. Pt will need a secure iv line. I have asked Anesthesia to place a PICC line. (2) Bloody diarrhea Assessment/Plan: No diarrhea until this am, which I saw: BRBPR and semiformed small loose brown BM. The patient "thinks" it was a slightly painful BM. RN says Pt was not appearing in pain during BM. Will send for cultures and treat as above. (3) Hiatal hernia Assessment/Plan: The reports that she has significant GERD and that she was not taking her acid dairy management specialist for the past 1 week, because "she forgot to fill her med hiolder with this". This suggests that the patient is too forgetful to be in charge of her medication administration. Continue PPI and symptomatic care (GI cocktail vs Magic mouthwash). (4) Vomiting Assessment/Plan: No further N/V. Pt is hoarse today after vomiting 2 days ago, suggesting she has acid reflux or more than 1 vomiting episode. Continue PPI (5) Acute hyperactive delirium due to multiple etiologies Assessment/Plan: Last night, the pt had typical "sun downing" in a demented Pt. Will order meds prn and ask for family's assistance with re-orienting her as "sun downing" recurs. (6) Dementia Assessment/Plan: The reports that the Pt has been on various doses of various dementia meds for the past 1 year, but got side effects and tthey were stopped. I will schedule Ativan or Zyprexa prn "sun downing". I advised the to have family take turns staying with Pt in her hospital room, which he agrees to. - Current Meds Current Meds: Current Medications Generic Name Dose Route Start Last Admin Trade Name Freq PRN Reason Stop Dose Admin Acetaminophen/Hydrocodone Bitart 1 tab 08/10/17 03:03 08/10/17 16:31 [place] 5/325 PO 1 tab Q4HR PRN Administration Pain 5 to 7 Ciprofloxacin 200 mls @ 200 mls/hr 08/10/17 21:00 08/10/17 23:07 Cipro 400 Mg/200 Ml IV Infused Q12H SHERRY Infusion Metronidazole 500 mg in 100 mls @ 100 mls/hr 08/10/17 20:00 08/11/17 04:07 Flagyl 500 Mg/100 Ml IV Infused Q6H SHERRY Infusion Multi-Ingredient Mouthwash/Gargle 30 ml 08/10/17 06:10 08/10/17 08:19 PO 30 ml Q4H PRN Administration Mouth Sore Pain Pantoprazole Sodium 40 mg 08/10/17 09:00 08/10/17 21:48 Protonix IVP 40 mg BID SHERRY Administration Phenol/Menthol 2 sprays 08/10/17 05:28 08/10/17 05:41 Chloraseptic MM 2 sprays Q2HR PRN Administration Throat Pain Polyethylene Glycol 17 gm 08/10/17 09:00 08/10/17 08:15 Miralax PO 17 gm DAILY SHERRY Administration Sodium Chloride 10 ml 08/10/17 06:00 08/11/17 04:51 Normal Saline Flush 0.9% IVP Not Given Q8HR SHERRY - Lab Result Fish Bone Diagrams: 08/11/17 05:32 08/11/17 05:32 - Additional Planning My Orders: My Active Orders 08/10/17 18:23 Straight Catheter Insertion [RC] ONCE 08/11/17 10:18 Admit \\ Transfer \\ Status [RC] .ONCE 08/11/17 11:15 PICC Line Care [RC] Q4H PICC Line Insert [RC] .ONCE 08/11/17 12:00 D5ns W/20 Meq KCl 1,000 ml IV 80 mls/hr 08/11/17 Breakfast Clear Liquid Diet [DIET] Subjective - Subjective Patient Reports: Other (Pt speaking with hoarse voice is in the rrom , both sitting up. Pt realizes she is in a hospital today. She does not remember being admitted, pulling out 2 ivs, walking in hallway, or being agitated.) Nursing Reports: Other (Overnite pt was confused, pulling at bedding, pulled out iv twice, c/o "throat fullness" and occaisional cough.) Objective Vital Signs: Vital Signs - 24 hr 08/10/17 08/10/17 08/10/17 12:00 14:30 14:34 Temperature 37.5 C 37.1 C Heart Rate [ 95 85 Radial] Respiratory 14 14 Rate Blood Pressure 129/66 153/65 H 129/66 [Left Brachial artery] O2 Saturation 95 08/11/17 08/11/17 05:42 09:50 Temperature 36.8 C 36.5 C Heart Rate [ 78 83 Radial] Respiratory 18 16 Rate Blood Pressure 126/48 L 137/72 H [Left Brachial artery] O2 Saturation 92 91 L Oxygen O2 Source Room air I&O (Last 24 Hrs): Intake and Output Totals x24h 08/09/17 08/10/17 08/11/17 23:59 23:59 23:59 Intake Total 3920 390 Output Total 451 Balance 3469 390 General: Alert HEENT: Mucous membr. moist/pink, Other (Hoarseness.) Neck: Supple, No JVD Neuro: Disoriented Cardiovascular: Regular rate Respiratory: No respiratory distress Abdomen: Soft Extremities: No edema - Results Results: Laboratory Results WBC 11.2 x10^3/uL (4.8-10.8) H 08/11/17 05:32 RBC 3.98 10^6/uL (4.20-5.40) L 08/11/17 05:32 Hgb 12.2 g/dL (12.0-16.0) 08/11/17 05:32 Hct 36.8 % (37.0-47.0) L 08/11/17 05:32 MCV 92.5 fL (81.0-99.0) 08/11/17 05:32 MCH 30.6 pg (27.0-31.0) 08/11/17 05:32 MCHC 33.1 g/dL (32.0-36.0) 08/11/17 05:32 RDW 14.2 % (12.0-15.0) 08/11/17 05:32 Plt Count 226 10^3/uL (130-450) 08/11/17 05:32 MPV 7.8 fL (7.9-10.8) L 08/11/17 05:32 Neut # 9.7 10^3/uL (1.5-6.6) H 08/11/17 05:32 Lymph # 0.9 10^3/uL (1.5-3.5) L 08/11/17 05:32 [place] # 0.7 10^3/uL (0.0-1.0) 08/11/17 05:32 Eos # 0.0 10^3/uL (0.0-0.7) 08/11/17 05:32 Baso # 0.0 10^3/uL (0.0-0.1) 08/11/17 05:32 Absolute Nucleated RBC 0.00 x10^3/uL 08/11/17 05:32 Total Counted 100 08/10/17 05:48 Band Neuts % (Manual) 12 % (0-10) H 08/10/17 05:48 Nucleated RBC % 0.0 /100WBC 08/11/17 05:32 Neutrophils # (Manual) 13.7 10^3/uL (1.5-6.6) H 08/10/17 05:48 Lymphocytes # (Manual) 0.3 10^3/uL (1.5-3.5) L 08/10/17 05:48 Monocytes # (Manual) 0.1 10^3/uL (0.0-1.0) 08/10/17 05:48 Differential Comment MANUAL DIFFERENTIAL 08/10/17 05:48 Platelet Estimate NORMAL (130-450,000) (NORMAL) 08/10/17 05:48 RBC Morph Micro Appear NORMAL APPEARANCE (NORMAL) 08/10/17 05:48 PT 13.6 secs (9.9-12.6) H 08/10/17 05:48 INR 1.2 (0.8-1.2) 08/10/17 05:48 Sodium 144 mmol/L (135-145) 08/11/17 05:32 Potassium 3.3 mmol/L (3.5-5.0) L 08/11/17 05:32 Chloride 112 mmol/L (101-111) H 08/11/17 05:32 Carbon Dioxide 26 mmol/L (21-32) 08/11/17 05:32 Anion Gap 6.0 (6-13) 08/11/17 05:32 BUN 14 mg/dL (6-20) 08/11/17 05:32 Creatinine 0.7 mg/dL (0.4-1.0) 08/11/17 05:32 Estimated GFR (MDRD) 80 (>89) L 08/11/17 05:32 Glucose 105 mg/dL (70-100) H 08/11/17 05:32 Glycated Hemoglobin 5.4 % (4.6-6.2) 08/10/17 05:48 Estim Average Glucose 108 (70-100) H 08/10/17 05:48 Calcium 8.8 mg/dL (8.5-10.3) 08/11/17 05:32 Magnesium 1.9 mg/dL (1.7-2.8) 08/10/17 01:30 Total Bilirubin 0.7 mg/dL (0.2-1.0) 08/10/17 05:48 AST 26 IU/L (10-42) 08/10/17 05:48 ALT 16 IU/L (10-60) 08/10/17 05:48 Alkaline Phosphatase 81 IU/L (42-121) 08/10/17 05:48 Total Protein 7.4 g/dL (6.7-8.2) 08/10/17 05:48 Albumin 4.2 g/dL (3.2-5.5) 08/10/17 05:48 Globulin 3.2 g/dL (2.1-4.2) 08/10/17 05:48 Albumin/Globulin Ratio 1.3 (1.0-2.2) 08/10/17 05:48 Lipase 15 U/L (22-51) L 08/10/17 01:30 Urine Color YELLOW 08/10/17 18:27 Urine Clarity CLEAR (CLEAR) 08/10/17 18:27 Urine pH 6.5 PH (5.0-7.5) 08/10/17 18:27 Ur Specific [place] 1.015 (1.002-1.030) 08/10/17 18:27 Urine Protein NEGATIVE mg/dL (NEGATIVE) 08/10/17 18:27 Urine Glucose (UA) NEGATIVE mg/dL (NEGATIVE) 08/10/17 18:27 Urine Ketones NEGATIVE mg/dL (NEGATIVE) 08/10/17 18:27 Urine Occult Blood TRACE-INTA (NEGATIVE) 08/10/17 18:27 Urine Nitrite NEGATIVE (NEGATIVE) 08/10/17 18:27 Urine Bilirubin NEGATIVE (NEGATIVE) 08/10/17 18:27 Urine Urobilinogen 0.2 (NORMAL) E.U./dL (NORMAL) 08/10/17 18:27 Ur Leukocyte Esterase NEGATIVE (NEGATIVE) 08/10/17 18:27 Ur Microscopic Review NOT INDICATED 08/10/17 18:27 Urine Culture Comments NOT INDICATED 08/10/17 18:27 H. pylori IgG Antibody Negative (Negative) 08/10/17 01:30 Blood Type O POSITIVE 08/10/17 02:25 Antibody Screen NEGATIVE 08/10/17 02:25 - Procedures Procedures: Procedures CATARAC PHACOEMULS/ASPIR (07/13/14) INSERT LENS AT CATAR EXT (07/13/14)
[2017-08-11] MEDS: POLYETHYLENE GLYCOL 3350 17 GM PACKET PO SCH (12:16)
[2017-08-11] MEDS: D5NS W/20 MEQ KCL 1,000 ML IV SCH (13:18)
[2017-08-11] MEDS: PANTOPRAZOLE 40 MG VIAL IVP SCH ×2 (13:20→20:28)
--- NOTE | 2017-08-11 13:37 | XRAY Report ---
FRONTAL CHEST: 08/11/2017 CLINICAL INDICATION: PICC placement. COMPARISON: 08/10/2017. FINDINGS: Frontal view of the chest demonstrates a right arm PICC terminating at the cavoatrial junc tion. The cardiac silhouette is not enlarged. A hiatal hernia is again noted. Basilar atelectasis is present. IMPRESSION: RIGHT ARM PICC TERMINATING AT THE CAVOATRIAL JUNCTION. JOB #: [id number] EXT JOB #:[id number]
[2017-08-11] MEDS: CIPROFLOXACIN 400 MG/200 ML 200 ML IV SCH (14:21)
[2017-08-11] MEDS ORDERED: LORazepam 2 MG/ML VIAL IVP PRN (16:15)
[2017-08-11] MEDS: GI COCKTAIL 120 ML BOTTLE PO SCH (20:10)
--- NOTE | 2017-08-11 23:13 | PROVIDER PROGRESS NOTE ---
Subjective - General Admit Date: 08/10/17 - Review of Systems Psychiatric: positive: Confusion Objective - Patient Data Vital Signs: Vital Signs x48h Temp Pulse Resp BP Pulse Ox 08/11/17 21:20 68 18 96 08/11/17 21:15 36.7 C 74 16 131/44 H 88 L Intake & Output: Intake and Output Totals x24h 08/09/17 08/10/17 08/11/17 23:59 23:59 23:59 Intake Total 2800 1040 Output Total 450 Balance 2350 1040 - Lab Results Lab Results: 08/11/17 05:32 08/11/17 05:32 Other Lab Results: Lab Results x24hrs 08/11/17 08/11/17 08/10/17 Range/Units 05:32 05:32 10:50 WBC 11.2 H (4.8-10.8) x10^3/uL RBC 3.98 L (4.20-5.40) 10^6/uL Hgb 12.2 (12.0-16.0) g/dL Hct 36.8 L (37.0-47.0) % MCV 92.5 (81.0-99.0) fL MCH 30.6 (27.0-31.0) pg MCHC 33.1 (32.0-36.0) g/dL RDW 14.2 (12.0-15.0) % Plt Count 226 (130-450) 10^3/uL MPV 7.8 L (7.9-10.8) fL Neut # 9.7 H (1.5-6.6) 10^3/uL Lymph # 0.9 L (1.5-3.5) 10^3/uL [place] # 0.7 (0.0-1.0) 10^3/uL Eos # 0.0 (0.0-0.7) 10^3/uL Baso # 0.0 (0.0-0.1) 10^3/uL Absolute Nucleated RBC 0.00 x10^3/uL Nucleated RBC % 0.0 /100WBC Sodium 144 (135-145) mmol/L Potassium 3.3 L (3.5-5.0) mmol/L Chloride 112 H (101-111) mmol/L Carbon Dioxide 26 (21-32) mmol/L Anion Gap 6.0 (6-13) BUN 14 (6-20) mg/dL Creatinine 0.7 (0.4-1.0) mg/dL Estimated GFR (MDRD) 80 L (>89) Glucose 105 H (70-100) mg/dL Calcium 8.8 (8.5-10.3) mg/dL Stool Leukocytes, Qual POSITIVE (Negative) - Imaging Results Radiology Imaging: positive: See rad report (CT scan of abdomen/pelvis showing thickening of the left colon. Also large hiatal hernia being present.) - Current Medications Current Medications: Current Medications Generic Name Dose Route Start Last Admin Trade Name Freq PRN Reason Stop Dose Admin Acetaminophen/Hydrocodone Bitart 1 tab 08/10/17 03:03 08/10/17 16:31 [place] 5/325 PO 1 tab Q4HR PRN Administration Pain 5 to 7 Metronidazole 500 mg in 100 mls @ 100 mls/hr 08/10/17 20:00 08/11/17 21:00 Flagyl 500 Mg/100 Ml IV Infused Q6H SHERRY Infusion Potassium Chloride/Dextrose/Sod Cl 1,000 mls @ 80 mls/hr 08/11/17 12:00 08/11 13:18 IV 80 mls/hr .[id number] SHERRY Administration Ciprofloxacin 200 mls @ 200 mls/hr 08/11/17 14:00 08/11/17 15:26 Cipro 400 Mg/200 Ml IV Infused Q12H SHERRY Infusion Multi-Ingredient Mouthwash/Gargle 30 ml 08/10/17 06:10 08/10/17 08:19 PO 30 ml Q4H PRN Administration Mouth Sore Pain Multi-Ingredient Mouthwash/Gargle 30 ml 08/11/17 20:00 08/11/17 20:10 PO Not Given 0800,1500,2000 SHERRY Pantoprazole Sodium 40 mg 08/10/17 09:00 08/11/17 20:28 Protonix IVP 40 mg BID SHERRY Administration Phenol/Menthol 2 sprays 08/10/17 05:28 08/10/17 05:41 Chloraseptic MM 2 sprays Q2HR PRN Administration Throat Pain Polyethylene Glycol 17 gm 08/10/17 09:00 08/11/17 12:16 Miralax PO Not Given DAILY SHERRY Sodium Chloride 10 ml 08/10/17 03:03 08/11/17 20:28 Normal Saline Flush 0.9% IVP 10 ml PRN PRN Administration NEEDED PER PROVIDER ORDERS Sodium Chloride 10 ml 08/10/17 06:00 08/11/17 20:28 Normal Saline Flush 0.9% IVP 10 ml Q8HR SHERRY Administration - Physical Exam Abdomen: positive: Other (Patient confused/uncooperative so cannot fully assess the abdominal. No obvious abdominal tenderness.) Impression/Plan - Problem List Problem List: 1) abdominal pain/blood in stool with ct showing thickening of the left colon. This most likely represents ischemic colitis. Reocmmend medical management at this time with being adequately hydrated. Due to her mental state, she needs to be continued to be watched in the hospital. She will need an outpatient colonoscopy. 2) Possible ugi bleed with vomiting dark fluid possibly coffee ground. Hgb down slightly most likely secondary to hydration. Follow H&H. This possible could be related to the large hiatal hernia. Recommend continue PPIs. Due to mouth swelling, recommend delaying EGD as long as she remains stable having it done as outpatient.
[2017-08-12] MEDS: CIPROFLOXACIN 400 MG/200 ML 200 ML IV SCH ×2 (02:24→14:31)
[2017-08-12] MEDS: metroNIDAZOLE 500 MG/100 ML 500 MG/100 ML BAG IV SCH ×4 (03:25→21:49)
[2017-08-12] MEDS: D5NS W/20 MEQ KCL 1,000 ML IV SCH ×2 (05:11→21:49)
[2017-08-12] MEDS: SODIUM CHLORIDE FLUSH 0.9% 10 ML SYRINGE IVP SCH ×3 (05:12→20:12)
[2017-08-12] MEDS: PHENOL THROAT SPRAY 177 ML MM PRN (05:40)
--- NOTE | 2017-08-12 07:51 | PROVIDER PROGRESS NOTE ---
Subjective - Prog Note Date Prog Note Date: 08/12/17 Prog Note Time: 07:51 - Subjective Subjective: she c/o sore throat, hurts to swallow cough is congested and mildly productive denies sob or chest pain. she denies abd pain right this moment and looks puzzled. doesn't remember being in pain. also doesnt' remember the BM from yesterday. Thinks her last BM was >5 days ago. Current Medications - Current Medications Current Medications: Active Medications Acetaminophen (Tylenol) 650 mg PO Q4HR PRN PRN Reason: Pain 1 to 4 Acetaminophen/Hydrocodone Bitart ([place] 5/325) 1 tab PO Q4HR PRN PRN Reason: Pain 5 to 7 Last Admin: 08/10/17 16:31 Dose: 1 tab Acetaminophen/Hydrocodone Bitart ([place] 10 Mg/325 Mg) 1 tab PO Q4HR PRN PRN Reason: Pain 8 to 10 Metronidazole (Flagyl 500 Mg/100 Ml) 500 mg in 100 mls @ 100 mls/hr IV Q6H [facility] Last Infusion: 08/12/17 04:45 Dose: Infused Potassium Chloride/Dextrose/Sod Cl () 1,000 mls @ 80 mls/hr IV .[id number] [facility] Last Admin: 08/12/17 05:11 Dose: 80 mls/hr Ciprofloxacin (Cipro 400 Mg/200 Ml) 200 mls @ 200 mls/hr IV Q12H [facility] Last Infusion: 08/12/17 03:29 Dose: Infused Lorazepam (Ativan Inj (Vial)) 1 mg IVP Q2HR PRN PRN Reason: Anxiety Multi-Ingredient Mouthwash/Gargle () 30 ml PO Q4H PRN PRN Reason: Mouth Sore Pain Last Admin: 08/10/17 08:19 Dose: 30 ml Multi-Ingredient Mouthwash/Gargle () 30 ml PO 0800,1500,2000 [facility] Last Admin: 08/11/17 20:10 Dose: Not Given Ondansetron HCl (Zofran Inj) 4 mg IVP Q6HR PRN PRN Reason: Nausea / Vomiting Pantoprazole Sodium (Protonix) 40 mg IVP BID [facility] Last Admin: 08/11/17 20:28 Dose: 40 mg Phenol/Menthol (Chloraseptic) 2 sprays MM Q2HR PRN PRN Reason: Throat Pain Last Admin: 08/12/17 05:40 Dose: 2 sprays Polyethylene Glycol (Miralax) 17 gm PO DAILY [facility] Last Admin: 08/11/17 12:16 Dose: Not Given Prochlorperazine Edisylate (Compazine Inj) 10 mg IVP Q6HR PRN PRN Reason: Nausea / Vomiting Promethazine HCl (Phenergan Inj) 25 mg IM Q6HR PRN PRN Reason: Nausea / Vomiting Sodium Chloride (Normal Saline Flush 0.9%) 10 ml IVP PRN PRN PRN Reason: NEEDED PER PROVIDER ORDERS Last Admin: 08/11/17 20:28 Dose: 10 ml Sodium Chloride (Normal Saline Flush 0.9%) 10 ml IVP Q8HR [facility] Last Admin: 08/12/17 05:12 Dose: Not Given Amlodipine Besylate 5 mg PO DAILY 04/28/13 Cholecalciferol (Vitamin D3) [Vitamin D] 4,000 unit PO DAILY 04/28/13 Ezetimibe/Simvastatin [Vytorin 10-40 mg Tablet] 1 each PO DAILY 04/28/13 FLUoxetine [PROzac] 20 mg PO DAILY 04/28/13 Lisinopril [Zestril] 10 mg PO DAILY 04/28/13 Omeprazole [PriLOSEC] 20 mg PO QDAC 04/28/13 Senna [Senokot] 8.6 mg PO BID 08/10/17 Objective - Vital Signs/Intake & Output Reviewed Vital Signs: Yes Vital Signs: Vital Signs x48h Temp Pulse Resp BP Pulse Ox 08/12/17 00:58 37.4 C 62 18 126/52 L 95 Intake & Output: Intake & Output 08/09/17 08/10/17 08/11/17 08/12/17 23:59 23:59 23:59 23:59 Intake Total 2800 1040 1300 Output Total 450 Balance 2350 1040 1300 - Objective General Appearance: positive: No acute distress, Alert Eyes Bilateral: positive: PERRL ENT: positive: Pharyngeal erythema, Other (rhinorrhea, nasal voice, hoarseness is leading to vocalization as a whisper) Neck: positive: Lymphadenopathy (R) (mildy tender), Lymphadenopathy (L) (mildly tender). negative: No JVD, Stiff neck, Carotid bruit Respiratory: positive: No respiratory distress, Rhonchi. negative: Chest non- tender, Wheezes, Rales Cardiovascular: positive: Regular rate & rhythm. negative: JVD present, Gallop/ S4, Friction rub Abdomen: positive: Non-tender, No organomegaly, Nml bowel sounds, No distention Skin: positive: Warm, Dry Extremities: positive: Full ROM, No pedal edema Neurologic/Psychiatric: positive: CN's nml (2-12), Motor nml, Disoriented to place, Disoriented to time - Lab Results Fish Bones: 08/11/17 05:32 08/11/17 05:32 Other Labs: Lab Results x24hrs 08/10/17 Range/Units 10:50 Stool Leukocytes, Qual POSITIVE (Negative) Assessment/Plan - Problem List (1) Colitis Impression: presented as a LGI bleed with bright red bloody diarrhea CT of abdomen shows diffuse colitis. php consultant is following, appreciate his input, believes this is ischemic colitis. Pt getting bowel rest, iv hydration, follow labs and WBC. Continue iv fluids. Cipro and flagyl since 08/10. Pt needed a secure iv line. Anesthesia placed a PICC line 08/11 since she kept on pulling out IV . advance diet to full liquids. (2) Bloody diarrhea Assessment/Plan: No diarrhea then BM on 08/11, which was looked at by Dr. Bautista: BRBPR and semiformed small loose brown BM. The patient "thinks" it was a slightly painful BM. RN says Pt was not appearing in pain during BM. Will send for cultures and treat as above. Advance diet today. (3) Hiatal hernia Assessment/Plan: The reports that she has significant GERD and that she was not taking her acid coat joiner lockstitch for the past 1 week, because "she forgot to fill her med [employer] with this". This suggests that the patient is too forgetful to be in charge of her medication administration. Continue PPI and symptomatic care (GI cocktail vs Magic mouthwash). (4) Vomiting Assessment/Plan: No further N/V. Pt is hoarse today after vomiting 2 days ago, suggesting she has acid reflux or more than 1 vomiting episode. Continue PPI (5) Acute hyperactive delirium due to multiple etiologies Assessment/Plan: 08/10 the pt had typical "sun downing" in a demented Pt. Will order meds prn and ask for family's assistance with re-orienting her as "sun downing" recurs. They do come in at night (6) Dementia Assessment/Plan: The reports that the Pt has been on various doses of various dementia meds for the past 1 year, but got side effects and tthey were stopped. I will schedule Ativan or Zyprexa prn "sun downing". I advised the to have family take turns staying with Pt in her hospital room, which he agrees to. (7) Bronchitis. She may have had emesis as initial cause of swollen anatomy, but now acting like pharyngitis with bronchitis. Treat symptomtically. already on Cipro in #1.
[2017-08-12] MEDS: GI COCKTAIL 120 ML BOTTLE PO SCH ×3 (10:08→20:12)
[2017-08-12] MEDS: POTASSIUM CHLORIDE 20 MEQ/15 ML UDC PO SCH (10:09)
[2017-08-12] MEDS: PANTOPRAZOLE 40 MG VIAL IVP SCH ×2 (10:11→20:12)
[2017-08-12] MEDS: POLYETHYLENE GLYCOL 3350 17 GM PACKET PO SCH (10:15)
[2017-08-13] MEDS: CIPROFLOXACIN 400 MG/200 ML 200 ML IV SCH ×2 (01:23→14:16)
[2017-08-13] MEDS: metroNIDAZOLE 500 MG/100 ML 500 MG/100 ML BAG IV SCH ×4 (04:02→23:44)
[2017-08-13] MEDS: SODIUM CHLORIDE FLUSH 0.9% 10 ML SYRINGE IVP SCH ×3 (06:30→19:58)
--- NOTE | 2017-08-13 07:34 | PROVIDER PROGRESS NOTE ---
Subjective - Prog Note Date Prog Note Date: 08/13/17 Prog Note Time: 15:33 - Subjective Pt reports feeling: Improved Subjective: she is pleasant. sitting at side of the bed. picked at her breakfast and lunch but tolerating the advancement from full liquids to regular diet. no abd pain. very forgetful. at bedside to remember for her. Current Medications - Current Medications Current Medications: Active Medications Acetaminophen (Tylenol) 650 mg PO Q4HR PRN PRN Reason: Pain 1 to 4 Acetaminophen/Hydrocodone Bitart ([place] 5/325) 1 tab PO Q4HR PRN PRN Reason: Pain 5 to 7 Last Admin: 08/10/17 16:31 Dose: 1 tab Acetaminophen/Hydrocodone Bitart ([place] 10 Mg/325 Mg) 1 tab PO Q4HR PRN PRN Reason: Pain 8 to 10 Potassium Chloride/Dextrose/Sod Cl () 1,000 mls @ 80 mls/hr IV .[id number] [facility] Last Admin: 08/12/17 21:49 Dose: 80 mls/hr Ciprofloxacin (Cipro 400 Mg/200 Ml) 200 mls @ 200 mls/hr IV Q12H [facility] Last Infusion: 08/13/17 02:37 Dose: Infused Metronidazole (Flagyl 500 Mg/100 Ml) 500 mg in 100 mls @ 100 mls/hr IV Q6H [facility] Last Infusion: 08/13/17 07:04 Dose: Infused Lorazepam (Ativan Inj (Vial)) 1 mg IVP Q2HR PRN PRN Reason: Anxiety Multi-Ingredient Mouthwash/Gargle () 30 ml PO Q4H PRN PRN Reason: Mouth Sore Pain Last Admin: 08/10/17 08:19 Dose: 30 ml Multi-Ingredient Mouthwash/Gargle () 30 ml PO 0800,1500,2000 [facility] Last Admin: 08/12/17 20:12 Dose: 30 ml Ondansetron HCl (Zofran Inj) 4 mg IVP Q6HR PRN PRN Reason: Nausea / Vomiting Pantoprazole Sodium (Protonix) 40 mg IVP BID [facility] Last Admin: 08/12/17 20:12 Dose: 40 mg Phenol/Menthol (Chloraseptic) 2 sprays MM Q2HR PRN PRN Reason: Throat Pain Last Admin: 08/12/17 05:40 Dose: 2 sprays Polyethylene Glycol (Miralax) 17 gm PO DAILY [facility] Last Admin: 08/12/17 10:15 Dose: 17 gm Potassium Chloride () [facility] [place] Last Admin: 08/12/17 10:09 Dose: 40 meq Prochlorperazine Edisylate (Compazine Inj) 10 mg IVP Q6HR PRN PRN Reason: Nausea / Vomiting Promethazine HCl (Phenergan Inj) 25 mg IM Q6HR PRN PRN Reason: Nausea / Vomiting Sodium Chloride (Normal Saline Flush 0.9%) 10 ml IVP PRN PRN PRN Reason: NEEDED PER PROVIDER ORDERS Last Admin: 08/11/17 20:28 Dose: 10 ml Sodium Chloride (Normal Saline Flush 0.9%) 10 ml IVP Q8HR [facility] Last Admin: 08/13/17 06:30 Dose: Not Given Amlodipine Besylate 5 mg PO DAILY 04/28/13 Cholecalciferol (Vitamin D3) [Vitamin D] 4,000 unit PO DAILY 04/28/13 Ezetimibe/Simvastatin [Vytorin 10-40 mg Tablet] 1 each PO DAILY 04/28/13 FLUoxetine [PROzac] 20 mg PO DAILY 04/28/13 Lisinopril [Zestril] 10 mg PO DAILY 04/28/13 Omeprazole [PriLOSEC] 20 mg PO QDAC 04/28/13 Senna [Senokot] 8.6 mg PO BID 08/10/17 Objective - Vital Signs/Intake & Output Reviewed Vital Signs: Yes Vital Signs: Vital Signs x48h Temp Pulse Resp BP Pulse Ox 08/13/17 05:53 138/80 H 08/12/17 23:48 37.0 C 78 16 131/57 H 95 Intake & Output: Intake & Output 08/10/17 08/11/17 08/12/17 08/13/17 23:59 23:59 23:59 23:59 Intake Total 2800 1040 4320 400 Output Total 450 350 800 Balance 2350 1040 3970 -400 - Objective General Appearance: positive: No acute distress, Alert, Other (thin elderly female who walks into bathroom and in room with only standby assist) Eyes Bilateral: positive: PERRL, EOMI ENT: positive: Pharynx nml, Other (horarse voice almost all gone.) Neck: positive: No JVD. negative: Stiff neck, Carotid bruit Respiratory: positive: Chest non-tender, Other (bronchitic cough not present during my visit). negative: Wheezes, Rales, Rhonchi Cardiovascular: positive: Regular rate & rhythm, Systolic murmur. negative: Gallop/S4, Friction rub Abdomen: positive: Non-tender, No organomegaly, Nml bowel sounds, No distention Skin: positive: Warm, Dry Extremities: positive: Non-tender, Full ROM, No pedal edema Neurologic/Psychiatric: positive: CN's nml (2-12), Motor nml (but a little wobbly on her feet.), Disoriented to person, Disoriented to place, Disoriented to time - Lab Results Fish Bones: 08/13/17 08:15 08/13/17 08:15 Assessment/Plan - Problem List (1) Colitis Impression: presented as a LGI bleed with bright red bloody diarrhea CT of abdomen shows diffuse colitis. process consultant is following, appreciate his input, believes this is ischemic colitis. He wants to see her in his office in two months for colonscopy. Pt was getting bowel rest, iv hydration, follow labs and WBC. Continue iv fluids. Cipro and flagyl since 08/10. Pt needed a secure iv line. Anesthesia placed a PICC line 08/11 since she kept on pulling out IV . advanced diet to full liquids yesterday and doing well. Advance to regular diet now. (2) Bloody diarrhea Assessment/Plan: No diarrhea then BM on 08/11, which was looked at by Dr. Bautista: BRBPR and semiformed small loose brown BM. The patient "thinks" it was a slightly painful BM. RN says Pt was not appearing in pain during BM. Today loose brown stool, no blood. no cultures since formed stool. Advance diet today. (3) Hiatal hernia Assessment/Plan: The reports that she has significant GERD and that she was not taking her acid dermatology specialist for the past 1 week, because "she forgot to fill her med [employer] with this". This suggests that the patient is too forgetful to be in charge of her medication administration. Continue PPI and symptomatic care (GI cocktail vs Magic mouthwash). no hematemeis since here. (4) Vomiting Assessment/Plan: No further N/V. Pt is hoarse today after vomiting 2 days ago, suggesting she has acid reflux or more than 1 vomiting episode. Continue PPI (5) Acute hyperactive delirium due to multiple etiologies Assessment/Plan: 08/10 the pt had typical "sun downing" in a demented Pt. Will order meds prn and ask for family's assistance with re-orienting her as "sun downing" recurs. They do come in at night (6) Dementia Assessment/Plan: The reports that the Pt has been on various doses of various dementia meds for the past 1 year, but got side effects and tthey were stopped. I will schedule Ativan or Zyprexa prn "sun downing". I advised the to have family take turns staying with Pt in her hospital room, which he agrees to. (7) Bronchitis. She may have had emesis as initial cause of swollen anatomy, but now acting like pharyngitis with bronchitis. Treat symptomtically. already on Cipro in #1. she has improved today.
[2017-08-13] MEDS: POLYETHYLENE GLYCOL 3350 17 GM PACKET PO SCH (09:04)
[2017-08-13] MEDS: POTASSIUM CHLORIDE 20 MEQ/15 ML UDC PO SCH (09:24)
[2017-08-13] MEDS: GI COCKTAIL 120 ML BOTTLE PO SCH ×3 (09:24→20:05)
[2017-08-13] MEDS: PANTOPRAZOLE 40 MG VIAL IVP SCH ×2 (09:24→20:05)
[2017-08-13 09:46] LABS: BASOPHILS % (AUTO) 0.1 %; EOSINOPHILS # (AUTO) 0.1 10^3/uL (0.0-0.7); EOSINOPHILS % (AUTO) 0.6 %; HCT - HEMATOCRIT 37.4 % (37.0-47.0); HGB - HEMOGLOBIN 12.8 g/dL (12.0-16.0); LYMPHOCYTES % (AUTO) 10.5 %; MEAN CORPUSCULAR HEMOGLOBIN 31.3 pg (27.0-31.0); MEAN CORPUSCULAR HGB CONC 34.3 g/dL (32.0-36.0); MEAN CORPUSCULAR VOLUME 91.2 fL (81.0-99.0); MEAN PLATELET VOLUME 7.4 fL (7.9-10.8); MONOCYTES # (AUTO) 0.6 10^3/uL (0.0-1.0); MONOCYTES % (AUTO) 6.8 %; NEUTROPHILS # (AUTO) 7.5 10^3/uL (1.5-6.6); RED CELL DISTRIBUTION WIDTH 13.7 % (12.0-15.0); UNCORRECTED WHITE BLOOD COUNT 9.2 x10^3/uL; WHITE BLOOD COUNT 9.2 x10^3/uL (4.8-10.8)
[2017-08-13 09:49] LABS: CALCIUM 8.9 mg/dL (8.5-10.3); CREATININE 0.6 mg/dL (0.4-1.0); POTASSIUM 3.1 mmol/L (3.5-5.0)
--- NOTE | 2017-08-13 10:19 | PROVIDER PROGRESS NOTE ---
Subjective - General Admit Date: 08/10/17 - Review of Systems General: positive: No symptoms Gastrointestinal: positive: No symptoms (no c/o abdominal pain) Psychiatric: positive: Confusion Objective - Patient Data Vital Signs: Vital Signs x48h Temp Pulse Resp BP Pulse Ox 08/13/17 07:46 36.7 C 85 14 120/63 95 08/13/17 07:39 127/60 08/13/17 05:53 138/80 H Intake & Output: Intake and Output Totals x24h 08/11/17 08/12/17 08/13/17 23:59 23:59 23:59 Intake Total 1040 4320 1545.333 Output Total 350 800 Balance 1040 3970 745.333 - Lab Results Lab Results: 08/13/17 08:15 08/13/17 08:15 Other Lab Results: Lab Results x24hrs 08/13/17 08/13/17 Range/Units 08:15 08:15 WBC 9.2 (4.8-10.8) x10^3/uL RBC 4.10 L (4.20-5.40) 10^6/uL Hgb 12.8 (12.0-16.0) g/dL Hct 37.4 (37.0-47.0) % MCV 91.2 (81.0-99.0) fL MCH 31.3 H (27.0-31.0) pg MCHC 34.3 (32.0-36.0) g/dL RDW 13.7 (12.0-15.0) % Plt Count 180 (130-450) 10^3/uL MPV 7.4 L (7.9-10.8) fL Neut # 7.5 H (1.5-6.6) 10^3/uL Lymph # 1.0 L (1.5-3.5) 10^3/uL [place] # 0.6 (0.0-1.0) 10^3/uL Eos # 0.1 (0.0-0.7) 10^3/uL Baso # 0.0 (0.0-0.1) 10^3/uL Absolute Nucleated RBC 0.00 x10^3/uL Nucleated RBC % 0.0 /100WBC Sodium 139 (135-145) mmol/L Potassium 3.1 L (3.5-5.0) mmol/L Chloride 105 (101-111) mmol/L Carbon Dioxide 25 (21-32) mmol/L Anion Gap 9.0 (6-13) BUN 5 L (6-20) mg/dL Creatinine 0.6 (0.4-1.0) mg/dL Estimated GFR (MDRD) 96 (>89) Glucose 131 H (70-100) mg/dL Calcium 8.9 (8.5-10.3) mg/dL - Current Medications Current Medications: Current Medications Generic Name Dose Route Start Last Admin Trade Name Freq PRN Reason Stop Dose Admin Acetaminophen/Hydrocodone Bitart 1 tab 08/10/17 03:03 08/10/17 16:31 [place] 5/325 PO 1 tab Q4HR PRN Administration Pain 5 to 7 Potassium Chloride/Dextrose/Sod Cl 1,000 mls @ 80 mls/hr 08/11/17 12:00 08/13 09:26 IV 0 mls/hr .[id number] [facility] Infusion Ciprofloxacin 200 mls @ 200 mls/hr 08/11/17 14:00 08/13/17 02:37 Cipro 400 Mg/200 Ml IV Infused Q12H [facility] Infusion Metronidazole 500 mg in 100 mls @ 100 mls/hr 08/12/17 16:00 08/13/17 09:24 Flagyl 500 Mg/100 Ml IV 100 mls/hr Q6H [facility] Administration Multi-Ingredient Mouthwash/Gargle 30 ml 08/10/17 06:10 08/10/17 08:19 PO 30 ml Q4H PRN Administration Mouth Sore Pain Multi-Ingredient Mouthwash/Gargle 30 ml 08/11/17 20:00 08/13/17 09:24 PO 30 ml 0800,1500,2000 [facility] Administration Pantoprazole Sodium 40 mg 08/10/17 09:00 08/13/17 09:24 Protonix IVP 40 mg BID [facility] Administration Phenol/Menthol 2 sprays 08/10/17 05:28 08/12/17 05:40 Chloraseptic MM 2 sprays Q2HR PRN Administration Throat Pain Polyethylene Glycol 17 gm 08/10/17 09:00 08/13/17 09:04 Miralax PO Not Given DAILY [facility] Potassium Chloride 40 meq 08/12/17 08:00 08/13/17 09:24 PO 40 meq DAILYWM [facility] Administration Sodium Chloride 10 ml 08/10/17 03:03 08/11/17 20:28 Normal Saline Flush 0.9% IVP 10 ml PRN PRN Administration NEEDED PER PROVIDER ORDERS Sodium Chloride 10 ml 08/10/17 06:00 08/13/17 06:30 Normal Saline Flush 0.9% IVP Not Given Q8HR [facility] - Physical Exam Abdomen: positive: Non-tender Impression/Plan - Problem List Problem List: 1) abdominal pain with thickening of the left colon seen on CT scan. Most likely secondary to ischemic colitis that seems to have resolved at current time. Most are related to dehydration. Would recommend adequate oral intake. Advance to regular diet. If tolerates then d/c home. F/u in surgery clinic to schedule a colonoscopy in about 2 months. 2) Hematemesis may be related to her hiatal hernia. No further hematemesis with hgb now stable. Continue PPIs. Consider outpatient EGD after the perioral swelling has resolved.
--- NOTE | 2017-08-13 12:30 | PROVIDER PROGRESS NOTE ---
Subjective - Prog Note Date Prog Note Date: 08/13/17 Prog Note Time: 12:21 - Subjective Subjective: She is up to go to the bathroom. Stool was loose, yellowish brown. No blood. She has been tolerating her full liquid diet. She denies abdominal pain, chest pain, shortness of breath. Nursing reports that she just a little too sedated with Ativan and wondered if we could maybe stop it. Current Medications - Current Medications Current Medications: Active Medications Acetaminophen (Tylenol) 650 mg PO Q4HR PRN PRN Reason: Pain 1 to 4 Acetaminophen/Hydrocodone Bitart ([place] 5/325) 1 tab PO Q4HR PRN PRN Reason: Pain 5 to 7 Last Admin: 08/10/17 16:31 Dose: 1 tab Acetaminophen/Hydrocodone Bitart ([place] 10 Mg/325 Mg) 1 tab PO Q4HR PRN PRN Reason: Pain 8 to 10 Potassium Chloride/Dextrose/Sod Cl () 1,000 mls @ 80 mls/hr IV .[id number] [facility] Last Infusion: 08/13/17 10:33 Dose: 80 mls/hr Ciprofloxacin (Cipro 400 Mg/200 Ml) 200 mls @ 200 mls/hr IV Q12H [facility] Last Infusion: 08/13/17 02:37 Dose: Infused Metronidazole (Flagyl 500 Mg/100 Ml) 500 mg in 100 mls @ 100 mls/hr IV Q6H [facility] Last Infusion: 08/13/17 10:33 Dose: Infused Lorazepam (Ativan Inj (Vial)) 1 mg IVP Q2HR PRN PRN Reason: Anxiety Multi-Ingredient Mouthwash/Gargle () 30 ml PO Q4H PRN PRN Reason: Mouth Sore Pain Last Admin: 08/10/17 08:19 Dose: 30 ml Multi-Ingredient Mouthwash/Gargle () 30 ml PO 0800,1500,2000 [facility] Last Admin: 08/13/17 09:24 Dose: 30 ml Ondansetron HCl (Zofran Inj) 4 mg IVP Q6HR PRN PRN Reason: Nausea / Vomiting Pantoprazole Sodium (Protonix) 40 mg IVP BID [facility] Last Admin: 08/13/17 09:24 Dose: 40 mg Phenol/Menthol (Chloraseptic) 2 sprays MM Q2HR PRN PRN Reason: Throat Pain Last Admin: 08/12/17 05:40 Dose: 2 sprays Polyethylene Glycol (Miralax) 17 gm PO DAILY [facility] Last Admin: 08/13/17 09:04 Dose: Not Given Potassium Chloride () 40 meq PO DAILYWM [facility] Last Admin: 08/13/17 09:24 Dose: 40 meq Prochlorperazine Edisylate (Compazine Inj) 10 mg IVP Q6HR PRN PRN Reason: Nausea / Vomiting Promethazine HCl (Phenergan Inj) 25 mg IM Q6HR PRN PRN Reason: Nausea / Vomiting Sodium Chloride (Normal Saline Flush 0.9%) 10 ml IVP PRN PRN PRN Reason: NEEDED PER PROVIDER ORDERS Last Admin: 08/11/17 20:28 Dose: 10 ml Sodium Chloride (Normal Saline Flush 0.9%) 10 ml IVP Q8HR [facility] Last Admin: 08/13/17 06:30 Dose: Not Given Amlodipine Besylate 5 mg PO DAILY 04/28/13 Cholecalciferol (Vitamin D3) [Vitamin D] 4,000 unit PO DAILY 04/28/13 Ezetimibe/Simvastatin [Vytorin 10-40 mg Tablet] 1 each PO DAILY 04/28/13 FLUoxetine [PROzac] 20 mg PO DAILY 04/28/13 Lisinopril [Zestril] 10 mg PO DAILY 04/28/13 Omeprazole [PriLOSEC] 20 mg PO QDAC 04/28/13 Senna [Senokot] 8.6 mg PO BID 08/10/17 Objective - Vital Signs/Intake & Output Reviewed Vital Signs: Yes Vital Signs: Vital Signs x48h Temp Pulse Resp BP Pulse Ox 08/13/17 07:46 36.7 C 85 14 120/63 95 08/13/17 07:39 127/60 08/13/17 05:53 138/80 H Intake & Output: Intake & Output 08/10/17 08/11/17 08/12/17 08/13/17 23:59 23:59 23:59 23:59 Intake Total 2800 1040 4320 1645.333 Output Total 450 350 800 Balance 2350 1040 3970 845.333 - Objective General Appearance: positive: No acute distress, Alert, Other (Very slender elderly white female who has a vague affect and forgetful) Eyes Bilateral: positive: PERRL, EOMI ENT: positive: Pharynx nml. negative: Dry mucous membranes Neck: positive: No JVD. negative: Lymphadenopathy (R), Lymphadenopathy (L), Stiff neck, Carotid bruit Respiratory: positive: Chest non-tender. negative: Wheezes, Rales, Rhonchi Cardiovascular: positive: Regular rate & rhythm, Systolic murmur. negative: Gallop/S4, Friction rub Abdomen: positive: Non-tender, No organomegaly, Nml bowel sounds. negative: Guarding, Rebound Skin: positive: Warm, Dry Extremities: positive: Non-tender, No pedal edema Neurologic/Psychiatric: positive: CN's nml (2-12), Motor nml (but needs standby assists as she wobbles in walking to bathroom), Disoriented to place, Disoriented to time - Lab Results Fish Bones: 08/13/17 08:15 08/13/17 08:15 Other Labs: Lab Results x24hrs 08/13/17 08/13/17 Range/Units 08:15 08:15 WBC 9.2 (4.8-10.8) x10^3/uL RBC 4.10 L (4.20-5.40) 10^6/uL Hgb 12.8 (12.0-16.0) g/dL Hct 37.4 (37.0-47.0) % MCV 91.2 (81.0-99.0) fL MCH 31.3 H (27.0-31.0) pg MCHC 34.3 (32.0-36.0) g/dL RDW 13.7 (12.0-15.0) % Plt Count 180 (130-450) 10^3/uL MPV 7.4 L (7.9-10.8) fL Neut # 7.5 H (1.5-6.6) 10^3/uL Lymph # 1.0 L (1.5-3.5) 10^3/uL [place] # 0.6 (0.0-1.0) 10^3/uL Eos # 0.1 (0.0-0.7) 10^3/uL Baso # 0.0 (0.0-0.1) 10^3/uL Absolute Nucleated RBC 0.00 x10^3/uL Nucleated RBC % 0.0 /100WBC Sodium 139 (135-145) mmol/L Potassium 3.1 L (3.5-5.0) mmol/L Chloride 105 (101-111) mmol/L Carbon Dioxide 25 (21-32) mmol/L Anion Gap 9.0 (6-13) BUN 5 L (6-20) mg/dL Creatinine 0.6 (0.4-1.0) mg/dL Estimated GFR (MDRD) 96 (>89) Glucose 131 H (70-100) mg/dL Calcium 8.9 (8.5-10.3) mg/dL Assessment/Plan - Problem List (1) Colitis Impression: presented as a LGI bleed with bright red bloody diarrhea CT of abdomen shows diffuse colitis. crop consultant is following, appreciate his input, believes this is ischemic colitis. Pt getting bowel rest, iv hydration, follow labs and WBC. Continue iv fluids. Cipro and flagyl since 08/10. Pt needed a secure iv line. Anesthesia placed a PICC line 08/11 since she kept on pulling out IV . advance diet from full liquid to regular for lunch today. If she is eating and ambulating, anticipate dc tomorrow. I have called and left a message for her to call me. (2) Bloody diarrhea Assessment/Plan: No diarrhea then BM on 08/11, which was looked at by Dr. Bautista: BRBPR and semiformed small loose brown BM. The patient "thinks" it was a slightly painful BM. RN says Pt was not appearing in pain during BM. we were sending for cultures but since stool was semiformed 08/11 without BRBPR and today, cancel culture. Advance diet today. (3) Hiatal hernia Assessment/Plan: The reports that she has significant GERD and that she was not taking her acid mink rancher for the past 1 week, because "she forgot to fill her [employer] with this". This suggests that the patient is too forgetful to be in charge of her medication administration. Continue PPI and symptomatic care (GI cocktail vs Magic mouthwash). She's had no hematemsis while in the hospital. (4) Vomiting Assessment/Plan: No further N/V. Pt is hoarse today after vomiting 2 days ago, suggesting she has acid reflux or more than 1 vomiting episode. Continue PPI (5) Acute hyperactive delirium due to multiple etiologies Assessment/Plan: 08/10 the pt had typical "sun downing" in a demented Pt. Will order meds prn and ask for family's assistance with re-orienting her as "sun downing" recurs. They do come in at night prn (6) Dementia Assessment/Plan: The reports that the Pt has been on various doses of various dementia meds for the past 1 year, but got side effects and tthey were stopped. I will schedule Ativan or Zyprexa prn "sun downing". I advised the to have family take turns staying with Pt in her hospital room, which he agrees to. (7) Bronchitis. She may have had emesis as initial cause of swollen anatomy, but now acting like pharyngitis with bronchitis. Treat symptomtically. already on Cipro in #1. (8) Hypokalemia supplement again today as we did yesterday.
[2017-08-13] MEDS: D5NS W/20 MEQ KCL 1,000 ML IV SCH ×2 (14:12→14:15)
--- NOTE | 2017-08-13 14:16 | PROVIDER PROGRESS NOTE ---
Subjective - General Admit Date: 08/10/17 - Review of Systems General: positive: No symptoms Gastrointestinal: positive: No symptoms (no c/o abdominal pain) Psychiatric: positive: Other (more awake today and less confusion. No c/o abdominal pain.) Objective - Patient Data Vital Signs: Vital Signs x48h Temp Pulse Resp BP Pulse Ox 08/13/17 07:46 36.7 C 85 14 120/63 95 08/13/17 07:39 127/60 Intake & Output: Intake and Output Totals x24h 08/11/17 08/12/17 08/13/17 23:59 23:59 23:59 Intake Total 1040 4320 1920.000 Output Total 350 800 Balance 1040 3970 1120.000 - Lab Results Lab Results: 08/13/17 08:15 08/13/17 08:15 Other Lab Results: Lab Results x24hrs 08/13/17 08/13/17 Range/Units 08:15 08:15 WBC 9.2 (4.8-10.8) x10^3/uL RBC 4.10 L (4.20-5.40) 10^6/uL Hgb 12.8 (12.0-16.0) g/dL Hct 37.4 (37.0-47.0) % MCV 91.2 (81.0-99.0) fL MCH 31.3 H (27.0-31.0) pg MCHC 34.3 (32.0-36.0) g/dL RDW 13.7 (12.0-15.0) % Plt Count 180 (130-450) 10^3/uL MPV 7.4 L (7.9-10.8) fL Neut # 7.5 H (1.5-6.6) 10^3/uL Lymph # 1.0 L (1.5-3.5) 10^3/uL [place] # 0.6 (0.0-1.0) 10^3/uL Eos # 0.1 (0.0-0.7) 10^3/uL Baso # 0.0 (0.0-0.1) 10^3/uL Absolute Nucleated RBC 0.00 x10^3/uL Nucleated RBC % 0.0 /100WBC Sodium 139 (135-145) mmol/L Potassium 3.1 L (3.5-5.0) mmol/L Chloride 105 (101-111) mmol/L Carbon Dioxide 25 (21-32) mmol/L Anion Gap 9.0 (6-13) BUN 5 L (6-20) mg/dL Creatinine 0.6 (0.4-1.0) mg/dL Estimated GFR (MDRD) 96 (>89) Glucose 131 H (70-100) mg/dL Calcium 8.9 (8.5-10.3) mg/dL - Current Medications Current Medications: Current Medications Generic Name Dose Route Start Last Admin Trade Name Freq PRN Reason Stop Dose Admin Acetaminophen/Hydrocodone Bitart 1 tab 08/10/17 03:03 08/10/17 16:31 [place] 5/325 PO 1 tab Q4HR PRN Administration Pain 5 to 7 Potassium Chloride/Dextrose/Sod Cl 1,000 mls @ 80 mls/hr 08/11/17 12:00 08/13 14:12 IV Not Given .[id number] [facility] Ciprofloxacin 200 mls @ 200 mls/hr 08/11/17 14:00 08/13/17 02:37 Cipro 400 Mg/200 Ml IV Infused Q12H [facility] Infusion Metronidazole 500 mg in 100 mls @ 100 mls/hr 08/12/17 16:00 08/13/17 10:33 Flagyl 500 Mg/100 Ml IV Infused Q6H [facility] Infusion Multi-Ingredient Mouthwash/Gargle 30 ml 08/10/17 06:10 08/10/17 08:19 PO 30 ml Q4H PRN Administration Mouth Sore Pain Multi-Ingredient Mouthwash/Gargle 30 ml 08/11/17 20:00 08/13/17 09:24 PO 30 ml 0800,1500,2000 [facility] Administration Pantoprazole Sodium 40 mg 08/10/17 09:00 08/13/17 09:24 Protonix IVP 40 mg BID [facility] Administration Phenol/Menthol 2 sprays 08/10/17 05:28 08/12/17 05:40 Chloraseptic MM 2 sprays Q2HR PRN Administration Throat Pain Polyethylene Glycol 17 gm 08/10/17 09:00 08/13/17 09:04 Miralax PO Not Given DAILY [facility] Potassium Chloride 40 meq 08/12/17 08:00 08/13/17 09:24 PO 40 meq DAILYWM [facility] Administration Sodium Chloride 10 ml 08/10/17 03:03 08/11/17 20:28 Normal Saline Flush 0.9% IVP 10 ml PRN PRN Administration NEEDED PER PROVIDER ORDERS Sodium Chloride 10 ml 08/10/17 06:00 08/13/17 06:30 Normal Saline Flush 0.9% IVP Not Given Q8HR [facility] - Physical Exam Abdomen: positive: Non-tender Impression/Plan - Problem List Problem List: 1) Bloody stools with abdominal pain and thickened left colon on ct scan. Symptoms resolving. No signficant blood in her stools. Wbc decreasing. No abdominal pain. Start liquids.
[2017-08-14] MEDS: CIPROFLOXACIN 400 MG/200 ML 200 ML IV SCH ×2 (02:05→10:31)
[2017-08-14] MEDS: metroNIDAZOLE 500 MG/100 ML 500 MG/100 ML BAG IV SCH ×2 (04:09→09:17)
[2017-08-14] MEDS: SODIUM CHLORIDE FLUSH 0.9% 10 ML SYRINGE IVP SCH ×2 (05:10→09:17)
[2017-08-14] MEDS: D5NS W/20 MEQ KCL 1,000 ML IV SCH (05:42)
[2017-08-14 08:02] VITALS: BP 111/67
--- NOTE | 2017-08-14 08:19 | Discharge Plan ---
Discharge Plan Disposition: Home, Self Care Condition: Good Prescriptions: Ciprofloxacin HCl [Cipro] 250 mg PO BID #6 tablet metroNIDAZOLE [Flagyl] 250 mg PO Q8H #9 tablet Diet: Regular Activity Restrictions: Activity as Tolerated Shower Restrictions: No Driving Restrictions: Yes (no driving) Additional Instructions or Follow Up instructions: Severe you were admitted because of bloody diarrhea and abdominal pain that we think is lack of blood supply to your bowel. We call it ischemic colitis. You responded well to IV fluids, antibiotics, and just waiting. Sometimes ischemic colitis will need surgery but you were able to avoid that. The general surgeon, Dr. Koko Cardoan, would like to see you in 2 months. He may schedule you for a colonoscopy after he sees you. Please finish your antibiotics. You have 3 more days. While you take those antibiotics, also take an [id number] probiotic twice a day to help your bowel adjust to the antibiotics. Please also see your primary care provider, Kiet Gore, in the next week. If your abdominal pain and bloody diarrhea return, please come back to the emergency room No Smoking: If you smoke, Please STOP! Call for help. Follow-up with: Kiet Gore MD [Primary Care Provider] -
[2017-08-14] MEDS: POTASSIUM CHLORIDE 20 MEQ/15 ML UDC PO SCH (09:10)
[2017-08-14] MEDS: POLYETHYLENE GLYCOL 3350 17 GM PACKET PO SCH ×2 (09:15→10:26)
[2017-08-14] MEDS: GI COCKTAIL 120 ML BOTTLE PO SCH (09:16)
[2017-08-14] MEDS: PANTOPRAZOLE 40 MG VIAL IVP SCH (09:16)
--- NOTE | 2017-08-14 09:18 | PROVIDER PROGRESS NOTE ---
Subjective - General Admit Date: 08/10/17 - Review of Systems General: positive: No symptoms HEENT: positive: Sore throat Gastrointestinal: positive: No symptoms (no c/o abdominal pain) Psychiatric: positive: Other (more awake today and less confusion. No c/o abdominal pain.) Objective - Patient Data Vital Signs: Vital Signs x48h Temp Pulse Resp BP Pulse Ox 08/14/17 07:58 36.5 C 81 16 111/67 93 Intake & Output: Intake and Output Totals x24h 08/12/17 08/13/17 08/14/17 23:59 23:59 23:59 Intake Total 4320 2460.000 1560 Output Total 350 800 Balance 3970 1235.977 3500 - Lab Results Lab Results: 08/13/17 08:15 08/13/17 08:15 Other Lab Results: Lab Results x24hrs 08/13/17 08/13/17 Range/Units 08:15 08:15 WBC 9.2 (4.8-10.8) x10^3/uL RBC 4.10 L (4.20-5.40) 10^6/uL Hgb 12.8 (12.0-16.0) g/dL Hct 37.4 (37.0-47.0) % MCV 91.2 (81.0-99.0) fL MCH 31.3 H (27.0-31.0) pg MCHC 34.3 (32.0-36.0) g/dL RDW 13.7 (12.0-15.0) % Plt Count 180 (130-450) 10^3/uL MPV 7.4 L (7.9-10.8) fL Neut # 7.5 H (1.5-6.6) 10^3/uL Lymph # 1.0 L (1.5-3.5) 10^3/uL [place] # 0.6 (0.0-1.0) 10^3/uL Eos # 0.1 (0.0-0.7) 10^3/uL Baso # 0.0 (0.0-0.1) 10^3/uL Absolute Nucleated RBC 0.00 x10^3/uL Nucleated RBC % 0.0 /100WBC Sodium 139 (135-145) mmol/L Potassium 3.1 L (3.5-5.0) mmol/L Chloride 105 (101-111) mmol/L Carbon Dioxide 25 (21-32) mmol/L Anion Gap 9.0 (6-13) BUN 5 L (6-20) mg/dL Creatinine 0.6 (0.4-1.0) mg/dL Estimated GFR (MDRD) 96 (>89) Glucose 131 H (70-100) mg/dL Calcium 8.9 (8.5-10.3) mg/dL - Current Medications Current Medications: Current Medications Generic Name Dose Route Start Last Admin Trade Name Freq PRN Reason Stop Dose Admin Acetaminophen/Hydrocodone Bitart 1 tab 08/10/17 03:03 08/10/17 16:31 [place] 5/325 PO 1 tab Q4HR PRN Administration Pain 5 to 7 Potassium Chloride/Dextrose/Sod Cl 1,000 mls @ 80 mls/hr 08/11/17 12:00 08/14 05:42 IV 80 mls/hr .[id number] SHERRY Administration Ciprofloxacin 200 mls @ 200 mls/hr 08/11/17 14:00 08/14/17 05:38 Cipro 400 Mg/200 Ml IV Infused Q12H SHERRY Infusion Metronidazole 500 mg in 100 mls @ 100 mls/hr 08/12/17 16:00 08/14/17 05:38 Flagyl 500 Mg/100 Ml IV Infused Q6H SHERRY Infusion Lorazepam 1 mg 08/11/17 16:15 08/13/17 19:57 Ativan Inj (Vial) IVP 1 mg Q2HR PRN Administration Anxiety Multi-Ingredient Mouthwash/Gargle 30 ml 08/10/17 06:10 08/10/17 08:19 PO 30 ml Q4H PRN Administration Mouth Sore Pain Multi-Ingredient Mouthwash/Gargle 30 ml 08/11/17 20:00 08/13/17 20:05 PO 30 ml 0800,1500,2000 SHERRY Administration Pantoprazole Sodium 40 mg 08/10/17 09:00 08/13/17 20:05 Protonix IVP 40 mg BID SHERRY Administration Phenol/Menthol 2 sprays 08/10/17 05:28 08/12/17 05:40 Chloraseptic MM 2 sprays Q2HR PRN Administration Throat Pain Polyethylene Glycol 17 gm 08/10/17 09:00 08/13/17 09:04 Miralax PO Not Given DAILY SHERRY Potassium Chloride 40 meq 08/12/17 08:00 08/13/17 09:24 PO 40 meq DAILYWM SHERRY Administration Sodium Chloride 10 ml 08/10/17 03:03 08/11/17 20:28 Normal Saline Flush 0.9% IVP 10 ml PRN PRN Administration NEEDED PER PROVIDER ORDERS Sodium Chloride 10 ml 08/10/17 06:00 08/14/17 05:10 Normal Saline Flush 0.9% IVP Not Given Q8HR SHERRY - Physical Exam Abdomen: positive: Non-tender Impression/Plan - Problem List Problem List: 1) bloody stools secondary to probable ischemic colitis. No further blood in stool grossly. No c/o abdominal pain. Tolerating diet. Recommend outpatient colonoscopy. 2) Hematemesis. no further bleeding. She has a large hiatal hernia being present. Recommend outpatient EGD. Will follow as needed.
[2017-08-14 10:47] LABS: BILIRUBIN,URINE NEGATIVE (NEGATIVE); PH,URINE 6.5 PH (5.0-7.5)
[2017-08-14 11:10] LABS: UR CULTURE IF IND NOT INDICATED; WBC,URINE 0-3 /HPF (0-5)
--- NOTE | 2017-08-15 12:47 | DISCHARGE SUMMARY ---
DATE OF ADMISSION: 08/10/2017 DATE OF DISCHARGE: 08/14/2017 DISCHARGE DIAGNOSES: 1. Acute ischemic colitis. 2. Bloody diarrhea. 3. Hematemesis. 4. Hiatal hernia. 5. Acute hyperactivity with delirium due to multiple etiologies. 6. Dementia. 7. Bronchitis. 8. Hypokalemia. DISCHARGE MEDICATIONS: 1. Amlodipine 5 mg daily. 2. Vitamin D 4000 units daily. 3. Cipro 250 mg p.o. b.i.d. for four more days. 4. Flagyl 250 mg p.o. q.8h for four more days. 5. Vytorin 10/40 mg tablet daily. 6. Prozac 20 mg daily. 7. Lisinopril 10 mg daily. 8. Prilosec 20 mg daily. PRINCIPAL PROCEDURES: 1. Chest x-ray with small lung volumes. Small left lateral lung opacity that is probably atelectasis. A medium-sized hiatal hernia. 2. Abdomen/pelvis CT showed diffuse descending and proximal sigmoid colon wall thickening suggesting nonspecific colitis. Consider infectious, inflammatory etiologies, and ischemia considered less likely. He has a moderate to large esophageal hiatal hernia with possible wall thickening and intraluminal irregularity. Mild basilar atelectasis or infiltrate. 3. General Surgery consult with Dr. Freeman Cardona. The patient is a pleasantly demented 82-year-old female who lives in her own home with her . He describes her as very forgetful, but still easily promptable. She has a past medical history significant for hypertension, depression, thrombophlebitis with removal of venous clots. She presented to the emergency room with vomiting and blood in stools. She has had black stools for 3 or 4 days and increase generalized fatigue. She had coffee ground emesis today. In the emergency room, the patient was with a stable blood pressure. No history of nonsteroidals was found. She is intermittently taking her Prilosec since her still tries to let her take her own pills, even in spite of her dementia. Blood pressure was 147/84, respirations were 18 and pulse was 93. She is an elderly female in no acute distress. She had dry oral mucosa with a swollen lower lip and swelling of the uvula. Lungs were clear, abdominal exam had no organomegaly and was nontender. However, she did have mild discomfort in the epigastric region with no peritoneal signs. She did not appear uncomfortable. White cell count was 14.2, hemoglobin 15.4. Potassium 3.4. HOSPITAL COURSE: She was treated as a GI bleed, possible upper source. She has black stools, and described hematemesis that was guaiac positive in the emergency room. She had 2 large bore IVs placed, and her hemoglobin and hematocrit were monitored every 6 hours. She began at 13.4 grams of hemoglobin and the most she ever went down was 12.2 grams of hemoglobin. The day before discharge, she was 12.8. Her stool gradually cleared and became more brown, semi -formed. Occasionally, bright red blood per rectum was present. We suspected internal hemorrhoids. She had no further hematemesis. General Surgery was consulted and he feels that he would want to delay her EGD and colonoscopy on the basis of possible acute ischemic colitis, and possible angioneurotic edema of the throat and lips because she is on an ANDRE inhibitor. As such, she was monitored carefully. She had been n.p.o. Once her stool was clear, and she had no further abdominal discomfort and white cell count was normal, she was advanced in her diet. She was also treated empirically with Cipro and Flagyl. She went from a full diet to a normal diet and had no recurrence of epigastric abdominal pain. She had no recurrence of bloody stool. As such, she was stable to be discharged. She will followup with Dr. Cardona in the next 2 months. Dementia did lead to some delirium at night and we needed to ask family to come supervise her. She calmed down immediately. She also developed hoarse voice, rhinorrhea, and a barking cough for about a day and a half, and that gradually resolved to the point that she had minimal hoarseness at discharge. All of the congestion and rhinorrhea had resolved. Hypokalemia was treated with oral supplementation as well as IV supplementation. She is discharged in stable condition with a temperature of 36.5, pulse 81, blood pressure 111/67, and 93% on room air. This marin demented elderly woman is able to sit up in the bed, and walks slowly over to the bathroom and toilet with only a standby assist. She needs constant prompting with regard to safety. Her says that he is with her 07/04. Although she was marin and cooperative, she would forget from moment to moment what we were talking about. And 5 minutes after discussing the case with her , or with her, she would have no recollection of speaking to you. Lungs were clear, and she has a regular rate and rhythm. The abdomen is soft, scaphoid, nontender with no organomegaly. She has normal bowel sounds. Extremities are quite thin. She says that she cannot taste food very well, and she just does not want to eat. Greater than 30 minutes was spent in coordinating discharge and discussing the case with her at length. He is encouraged to increase some of her protein with a protein supplement at home twice a day, as well as her usual meals. She will need to followup with Dr. Cardona for colonoscopy and EGD. If she has recurrence of swollen lips, or swollen tongue, consider stopping her lisinopril since the swollen lips and uvula could have been from angioneurotic edema and not from emesis. JOB #: [id number] [facility] JOB #:[id number] [place]
== END 2017-08-14 12:40 | disposition home or self-care (01) | DRG 394 ==
LOC: ED 01:10 → OBS 03:04 → OBSVTOIN 10:18 → MS2 08-11 10:18
PROVIDERS: ADMIT Internal Medicine; ATTEND Specialist
PROC: 02HV33Z Insertion of Infusion Device into Superior Vena Cava, Percutaneous Approach (ICD-10-PCS; principal; 2017-08-10)
DX: K92.0 Hematemesis (principal); R11.2 Nausea with vomiting, unspecified; K55.039 Acute (reversible) ischemia of large intestine, extent unspecified; F05 Delirium due to known physiological condition; K44.9 Diaphragmatic hernia without obstruction or gangrene; E87.6 Hypokalemia; R73.9 Hyperglycemia, unspecified; K21.9 Gastro-esophageal reflux disease without esophagitis; F03.90 Unspecified dementia, unspecified severity, without behavioral disturbance, psychotic disturbance, mood disturbance, and anxiety; F17.200 Nicotine dependence, unspecified, uncomplicated; J40 Bronchitis, not specified as acute or chronic; J02.9 Acute pharyngitis, unspecified; I10 Essential (primary) hypertension; F32.9 Major depressive disorder, single episode, unspecified; F41.0 Panic disorder [episodic paroxysmal anxiety]; T78.3XXA Angioneurotic edema, initial encounter; T46.1X5A Adverse effect of calcium-channel blockers, initial encounter; K59.09 Other constipation; R32 Unspecified urinary incontinence; Z87.440 Personal history of urinary (tract) infections; Z79.899 Other long term (current) drug therapy; Z86.72 Personal history of thrombophlebitis
CPT/HCPCS: 36415; 51701; 71010; 74178; 80048; 80053; 81001; 81003; 82270; 83036; 83630; 83690; 83735; 85025; 85610; 86850; 86900; 86901; 87045; 87046; 87086; 87339; 87493; 96361; 96365; 96366; 96367; 96372; 96375; 96376; 99284; 99285

== ENCOUNTER 2017-08-25 08:50 | Outpatient (CLI) | payer MEDICARE, OTHER ==
[2017-08-25 13:29] LABS: BASOPHILS % (AUTO) 0.4 %; EOSINOPHILS # (AUTO) 0.1 10^3/uL (0.0-0.7); EOSINOPHILS % (AUTO) 2.2 %; HCT - HEMATOCRIT 39.9 % (37.0-47.0); HGB - HEMOGLOBIN 13.5 g/dL (12.0-16.0); LYMPHOCYTES # (AUTO) 1.2 10^3/uL (1.5-3.5); LYMPHOCYTES % (AUTO) 20.8 %; MEAN CORPUSCULAR HEMOGLOBIN 30.8 pg (27.0-31.0); MEAN CORPUSCULAR HGB CONC 33.8 g/dL (32.0-36.0); MEAN CORPUSCULAR VOLUME 91.2 fL (81.0-99.0); MEAN PLATELET VOLUME 8.4 fL (7.9-10.8); MONOCYTES # (AUTO) 0.4 10^3/uL (0.0-1.0); NEUTROPHILS # (AUTO) 4.2 10^3/uL (1.5-6.6); NEUTROPHILS % (AUTO) 70.6 %; RED BLOOD COUNT 4.37 10^6/uL (4.20-5.40); RED CELL DISTRIBUTION WIDTH 13.8 % (12.0-15.0)
[2017-08-25 14:13] LABS: ALBUMIN/GLOBULIN RATIO 1.3 (1.0-2.2); BILIRUBIN,TOTAL 0.5 mg/dL (0.2-1.0); CALCIUM 9.7 mg/dL (8.5-10.3); CREATININE 0.6 mg/dL (0.4-1.0); POTASSIUM 3.9 mmol/L (3.5-5.0); TOTAL PROTEIN 7.2 g/dL (6.7-8.2)
== END 2017-08-25 08:51 | disposition home or self-care (01) ==
LOC: LAB.WCP 08:50
PROVIDERS: ATTEND Family Medicine
DX: T78.3XXS Angioneurotic edema, sequela (principal); E78.5 Hyperlipidemia, unspecified; F03.90 Unspecified dementia, unspecified severity, without behavioral disturbance, psychotic disturbance, mood disturbance, and anxiety; I10 Essential (primary) hypertension
CPT/HCPCS: 36415; 80053; 83540; 84466; 85025

== ENCOUNTER 2017-12-16 07:58 | Day surgery (SDC) | payer MEDICARE, OTHER ==
[2017-12-16] MEDS ORDERED: LACTATED RINGERS 1,000 ML IV ONE (08:23)
[2017-12-16] MEDS ORDERED: BENZOCAINE/TETRACAINE/BUTAMBEN SPRAY 56 GM ONE (09:19)
[2017-12-16] MEDS ORDERED: BENZOCAINE/TETRACAINE/BUTAMBEN SPRAY 56 GM TOP ONE (09:20)
[2017-12-16] MEDS ORDERED: GLUCAGON 1 MG/ML VIAL IM ONE (09:30)
[2017-12-16] MEDS ORDERED: MIDAZOLAM 2 MG/2 ML VIAL IVP ONE (09:30)
[2017-12-16] MEDS ORDERED: fentaNYL 100 MCG/2 ML VIAL IVP ONE (09:30)
[2017-12-16] MEDS ORDERED: GLUCAGON 1 MG/ML VIAL ONE (10:10)
[2017-12-16] MEDS ORDERED: PROPOFOL 200 MG/20 ML VIAL IVP ONE (10:36)
[2017-12-16 11:41] VITALS: BP 111/59
== END 2017-12-16 07:59 | disposition home or self-care (01) ==
LOC: SDS 07:58
PROVIDERS: ATTEND Surgery
PROC: 0DBM8ZX Excision of Descending Colon, Via Natural or Artificial Opening Endoscopic, Diagnostic (ICD-10-PCS; 2017-12-16)
PROC: 0DB98ZX Excision of Duodenum, Via Natural or Artificial Opening Endoscopic, Diagnostic (ICD-10-PCS; principal; 2017-12-16 09:15)
PROC: 0DBK8ZX Excision of Ascending Colon, Via Natural or Artificial Opening Endoscopic, Diagnostic (ICD-10-PCS; 2017-12-16 09:15)
DX: K92.0 Hematemesis (principal); K44.9 Diaphragmatic hernia without obstruction or gangrene; D12.2 Benign neoplasm of ascending colon; D12.4 Benign neoplasm of descending colon; K57.30 Diverticulosis of large intestine without perforation or abscess without bleeding; I10 Essential (primary) hypertension; E78.5 Hyperlipidemia, unspecified; K21.9 Gastro-esophageal reflux disease without esophagitis
CPT/HCPCS: 43239; 45380; A9270; J7120

== ENCOUNTER 2018-05-02 15:52 | Emergency (ER) | payer MEDICARE, OTHER ==
[2018-05-02 17:05] LABS: BILIRUBIN,URINE NEGATIVE (NEGATIVE); GLUCOSE, URINE (UA) NEGATIVE (NEGATIVE); KETONES,URINE (UA) NEGATIVE (NEGATIVE); LEUKOCYTE ESTERASE, URINE NEGATIVE (NEGATIVE); NITRITE,URINE NEGATIVE (NEGATIVE); OCCULT BLOOD,URINE TRACE-INTA (NEGATIVE); PROTEIN,URINE NEGATIVE (NEGATIVE); UROBILINOGEN,URINE 0.2 (NORMAL) E.U./dL (NORMAL)
[2018-05-02 17:06] LABS: CLARITY,URINE CLEAR (CLEAR)
[2018-05-02] MEDS ORDERED: SODIUM CHLORIDE 0.9% 1,000 ML IV ONE (17:16)
[2018-05-02 17:44] LABS: BASOPHILS % (AUTO) 0.3 %; EOSINOPHILS % (AUTO) 0.4 %; LYMPHOCYTES # (AUTO) 0.8 10^3/uL (1.5-3.5); LYMPHOCYTES % (AUTO) 6.9 %; MEAN CORPUSCULAR HEMOGLOBIN 31.3 pg (27.0-31.0); MEAN CORPUSCULAR HGB CONC 34.8 g/dL (32.0-36.0); MEAN CORPUSCULAR VOLUME 89.8 fL (81.0-99.0); MEAN PLATELET VOLUME 6.9 fL (7.9-10.8); MONOCYTES # (AUTO) 0.5 10^3/uL (0.0-1.0); MONOCYTES % (AUTO) 4.5 %; NEUTROPHILS # (AUTO) 10.1 10^3/uL (1.5-6.6); NEUTROPHILS % (AUTO) 87.9 %; PLT - PLATELET COUNT 280 10^3/uL (130-450); RED CELL DISTRIBUTION WIDTH 13.3 % (12.0-15.0); WHITE BLOOD COUNT 11.5 x10^3/uL (4.8-10.8)
[2018-05-02 17:56] LABS: ALBUMIN 4.5 g/dL (3.2-5.5); ALBUMIN/GLOBULIN RATIO 1.3 (1.0-2.2); CALCIUM 9.6 mg/dL (8.5-10.3); CREATININE 0.6 mg/dL (0.4-1.0)
[2018-05-02] MEDS ORDERED: IOPAMIDOL-300 100 ML VIAL ONE (18:16)
[2018-05-02] MEDS ORDERED: IOPAMIDOL-300 100 ML VIAL IVP ONE (18:46)
--- NOTE | 2018-05-02 19:53 | CT Report ---
Procedure Date: 05/02/2018 Accession Number: [id number] / [id number] Procedure: CT - Neck Soft Tissue W/ CPT Code: FULL RESULT: EXAM: CT SOFT TISSUE NECK WITH CONTRAST. EXAM DATE: 05/02/2018 06:57 PM. HISTORY: 83-year-old female, right sided facial and neck swelling COMPARISONS: BRAIN W/O 07/20/2016 11:07 AM. TECHNIQUE: Routine soft tissue neck CT protocol. Reconstructions: Coronal and sagittal. IV contrast: ISOVUE 300 80mL. In accordance with CT protocol optimization, one or more of the following dose reduction techniques were utilized for this exam: automated exposure control, adjustment of mA and/or KV based on patient size, or use of iterative reconstructive technique. FINDINGS: Visualized Intracranial Contents: Unremarkable. Orbits: Symmetric and unremarkable. Sinuses: Visualized paranasal sinuses and mastoid air cells are clear. Oral cavity: The visualized oral cavity is unremarkable. The floor of the mouth is symmetric. Pharynx : Pharyngeal mucosa is unremarkable. The infratemporal fossa and parapharyngeal spaces are unremarkable. Small volume nonorganized retropharyngeal fluid. The base of the tongue is symmetric and unremarkable. The airway is patent. Larynx: Larynx and supraglottic airway are patent without mass lesion. Vocal cords are symmetric. The visualized trachea is unremarkable. Parotid and Submandibular Glands: The right parotid gland is enlarged and hyperenhancing, when compared to the normal appearing contralateral left side. Also the right submandibular gland appears enlarged and hyperenhancing when compared the left side. Lymph Nodes: No enlarged lymph nodes are identified in the cervical, supraclavicular, and visualized superior mediastinal regions. Soft tissues: Overlying the right parotid gland and right submandibular gland, there is extensive soft tissue swelling and inflammatory change. Nonorganized fluid is tracking along the right anterolateral neck to the level of the thyroid gland. No definite soft tissue abscess formation at this time. Vascular Structures: Unremarkable. Thyroid Gland: Normal. Lung: The visualized lung apices are clear. Bones: No evidence of acute fracture or malalignment. There are mild degenerative changes. Other: None. IMPRESSION: 1. The right parotid gland is enlarged and hyperenhancing, when compared to the normal appearing contralateral left side. Also the right submandibular gland appears enlarged and hyperenhancing when compared the left side. This likely represents acute parotitis and acute sialadenitis. 2. Overlying the right parotid gland and right submandibular gland, there is extensive soft tissue swelling and inflammatory change. This likely represents soft tissue cellulitis. 3. Nonorganized fluid is tracking along the right anterolateral neck to the level of the thyroid gland. 4. No definite soft tissue abscess formation at this time. 5. Small volume nonorganized retropharyngeal fluid. RADIA
[2018-05-02] MEDS ORDERED: AMPICILLIN/SULBACTAM 3 GM in SODIUM CHLORIDE 0.9% MINIBAG 100 ML IV STA (20:07)
--- NOTE | 2018-05-02 20:07 | ED Physician Documentation ---
History of Present Illness - Stated complaint Stated Complaint: FACE SWOLLEN - Chief complaint Chief Complaint: Wound - History obtained from History obtained from: Patient, Family - History of Present Illness Timing: Yesterday Pain level max: 8 Pain level now: 6 Improved by: nothing Worsened by: nothing - Additonal information Additional information: Patient is an 83-year-old female who noted the right side of her face to start swelling yesterday has progressed more today. Now has noticed redness to the lower portion of the neck as well, has also been utilizing a heating pad to this area. No fevers. No difficulty swallowing other than discomfort with opening her mouth. Does not recall any injury. Does not have any toothache or dental pain. No stridor or wheezing Review of Systems Ten Systems: 10 systems reviewed and negative Constitutional: denies: Fever, Chills Ears: denies: Ear pain Cardiac: denies: Chest pain / pressure Respiratory: denies: Cough GI: denies: Nausea, Vomiting, Diarrhea Skin: denies: Rash Musculoskeletal: denies: Neck pain, Back pain Neurologic: denies: Focal weakness, Numbness, Headache PD PAST MEDICAL HISTORY - Past Medical History Past Medical History: Yes Cardiovascular: Hypertension, Angina Respiratory: None Endocrine/Autoimmune: None GI: Chronic constipation UNDERWRITING SPECIALIST: Ectopic : Incontinence, Chronic bladder infection HEENT: None Psych: Depression, Anxiety, Panic attacks Musculoskeletal: Other Derm: None - Past Surgical History Past Surgical History: Yes General: Colonoscopy /UNDERWRITING SPECIALIST: Hysterectomy Cardiovascular: Vascular surgery HEENT: Cataracts, Tonsil/Adenoidectomy - Present Medications Home Medications: Ambulatory Orders Medication Instructions Recorded Confirmed Amlodipine Besylate 5 mg PO DAILY 04/28/13 12/16/17 Cholecalciferol (Vitamin D3) 4,000 unit PO DAILY 04/28/13 12/16/17 [Vitamin D3] Ezetimibe/Simvastatin [Vytorin 1 each PO DAILY 04/28/13 12/16/17 10-40 mg Tablet] FLUoxetine [PROzac] 20 mg PO DAILY 04/28/13 12/16/17 Omeprazole [PriLOSEC] 20 mg PO QDAC 04/28/13 12/16/17 Senna [Senokot] 8.6 mg PO BID 08/10/17 12/16/17 Amox/Clav 875/125 [Augmentin] 1 each PO Q12H #14 tablet 05/02/18 Sulfamethox/Trimeth 800/160 1 each PO BID #14 tablet 05/02/18 [Bactrim Ds 800/160] - Allergies Allergies/Adverse Reactions: Allergies Allergy/AdvReac Type Severity Reaction Status Date / Time No Known Drug Allergies Allergy Verified 05/02/18 16:03 - Social History Does the pt smoke?: Yes Smoking Status: Current every day smoker Does the pt drink ETOH?: Yes Does the pt have substance abuse?: No - POLST Patient has POLST: No POLST Status: Full Code PD ED PE NORMAL - Vitals Vital signs reviewed: Yes - General General: Alert and oriented X 3, No acute distress - HEENT HEENT: Moist mucous membranes, Other (Enlargement of the right parotid gland that is obscuring the angle of the mandible in the right side. Also has mild swelling in the submandibular gland. Does have an area of light erythema from the angle of the mandible down to the level of the thyroid. No crepitus.) - Neck Neck: Supple, no meningeal sign - Cardiac Cardiac: RRR - Respiratory Respiratory: No respiratory distress, Clear bilaterally - Abdomen Abdomen: Soft, Non tender, Non distended - Derm Derm: Warm and dry, No rash - Extremities Extremities: No edema - Neuro Neuro: Alert and oriented X 3, tree and shrub technician 2-12 intact, No motor deficit, No sensory deficit, Normal speech - Psych Psych: Normal mood, Normal affect Results - Vitals Vitals: Vital Signs - 24 hr 05/02/18 05/02/18 05/02/18 15:59 20:04 20:52 Temperature 36.2 C L 37.0 C 36.4 C L Heart Rate 104 H 100 74 Respiratory 18 18 18 Rate Blood Pressure 159/80 H 149/82 H 133/72 H O2 Saturation 99 98 100 Oxygen O2 Source Room air - Labs Labs: Laboratory Tests 05/02/18 05/02/18 05/02/18 16:36 17:40 17:40 WBC 11.5 H RBC 4.80 Hgb 15.0 Hct 43.1 MCV 89.8 MCH 31.3 H MCHC 34.8 RDW 13.3 Plt Count 280 MPV 6.9 L Neut # (Auto) 10.1 H Lymph # (Auto) 0.8 L [place] # (Auto) 0.5 Eos # (Auto) 0.0 Baso # (Auto) 0.0 Absolute Nucleated RBC 0.00 Nucleated RBC % 0.0 Sodium 139 Potassium 3.0 L Chloride 102 Carbon Dioxide 26 Anion Gap 11.0 BUN 15 Creatinine 0.6 Estimated GFR (MDRD) 96 Glucose 115 H Calcium 9.6 Total Bilirubin 1.0 AST 23 ALT 18 Alkaline Phosphatase 86 Total Protein 8.0 Albumin 4.5 Globulin 3.5 Albumin/Globulin Ratio 1.3 Lipase 25 Urine Color YELLOW Urine Clarity CLEAR Urine pH 6.0 Ur Specific [place] 1.020 Urine Protein NEGATIVE Urine Glucose (UA) NEGATIVE Urine Ketones NEGATIVE Urine Occult Blood TRACE-INTA Urine Nitrite NEGATIVE Urine Bilirubin NEGATIVE Urine Urobilinogen 0.2 (NORMAL) Ur Leukocyte Esterase NEGATIVE Ur Microscopic Review NOT INDICATED Urine Culture Comments NOT INDICATED - Rads (name of study) soft tissue neck CT Radiology: Prelim report reviewed, EMP read contemporaneously, See rad report ( The right parotid gland is enlarged and hyperenhancing, when compared to the normal appearing contralateral left side. Also the right submandibular gland appears enlarged and hyperenhancing when compared the left side. This likely represents acute parotitis and acute sialadenitis. 2. Overlying the right parotid gland and right submandibular gland, there is extensive soft tissue swelling and inflammatory change. This likely represents soft tissue cellulitis. 3. Nonorganized fluid is tracking along the right anterolateral neck to the level of the thyroid gland. 4. No definite soft tissue abscess formation at this time. 5. Small volume nonorganized retropharyngeal fluid. ) PD MEDICAL DECISION MAKING - ED course Complexity details: reviewed results, re-evaluated patient, considered differential, d/w patient, d/w family ED course: Patient is an 83-year-old female who presents to the emergency department with a right parotitis and sialoadenitis of the right submandibular gland. Also appears to have cellulitis to the neck. No evidence of abscess or necrotizing soft tissue infection. She is adamant about not staying in the hospital tonight. Was given a dose of IV Unasyn and will start on Bactrim and Augmentin at home. She is very well-appearing, nontoxic. Patient and counseled at length regarding the need for urgent follow-up and to return immediately if she is failing to improve or worsening as this could turn into an abscess or other serious infection. Patient and family counseled regarding signs and symptoms for which I believe and urgent re-evaluation would be necessary. Patient with good understanding of and agreement to plan and is comfortable going home at this time This document was made in part using voice recognition software. While efforts are made to proofread this document, sound alike and grammatical errors may occur. - Sepsis Event Vital Signs: Vital Signs - 24 hr 05/02/18 05/02/18 05/02/18 15:59 20:04 20:52 Temperature 36.2 C L 37.0 C 36.4 C L Heart Rate 104 H 100 74 Respiratory 18 18 18 Rate Blood Pressure 159/80 H 149/82 H 133/72 H O2 Saturation 99 98 100 Oxygen O2 Source Room air Departure - Departure Disposition: 01 Home, Self Care Clinical Impression: Parotitis, Cellulitis of neck Condition: Good Instructions: ED Infec Skin Cellulitis Follow-Up: Kiet Gore MD [Primary Care Provider] - Within 3 Days Prescriptions: Amox/Clav 875/125 [Augmentin] 1 each PO Q12H #14 tablet Sulfamethox/Trimeth 800/160 [Bactrim Ds 800/160] 1 each PO BID #14 tablet Comments: Take all antibiotics until gone. Return immediately if you worsen. If you are not improving in the next 24-36 hours, you should return for repeat evaluation. This infection can become serious quickly. Discharge Date/Time: 05/02/18 20:54
[2018-05-02 20:53] VITALS: BP 133/72
== END 2018-05-02 20:54 | disposition home or self-care (01) ==
LOC: ED 15:52
DX: K11.20 Sialoadenitis, unspecified (principal); L03.221 Cellulitis of neck; I10 Essential (primary) hypertension; F17.200 Nicotine dependence, unspecified, uncomplicated
CPT/HCPCS: 36415; 70491; 80053; 81003; 83690; 85025; 96365; 99284; Q9967; 81001; 87086

== ENCOUNTER 2018-10-20 10:45 | Outpatient (CLI) | payer MEDICARE, OTHER ==
[2018-10-20 19:01] LABS: BASOPHILS % (AUTO) 0.6 %; EOSINOPHILS # (AUTO) 0.1 10^3/uL (0.0-0.7); EOSINOPHILS % (AUTO) 1.8 %; HGB - HEMOGLOBIN 13.5 g/dL (12.0-16.0); LYMPHOCYTES % (AUTO) 18.8 %; MEAN CORPUSCULAR HEMOGLOBIN 28.9 pg (27.0-31.0); MEAN CORPUSCULAR HGB CONC 32.2 g/dL (32.0-36.0); MEAN CORPUSCULAR VOLUME 89.8 fL (81.0-99.0); MEAN PLATELET VOLUME 8.6 fL (7.9-10.8); MONOCYTES # (AUTO) 0.3 10^3/uL (0.0-1.0); MONOCYTES % (AUTO) 6.3 %; NEUTROPHILS # (AUTO) 3.8 10^3/uL (1.5-6.6); NEUTROPHILS % (AUTO) 72.5 %; PLT - PLATELET COUNT 272 10^3/uL (130-450); RED BLOOD COUNT 4.67 10^6/uL (4.20-5.40); RED CELL DISTRIBUTION WIDTH 13.7 % (12.0-15.0); WHITE BLOOD COUNT 5.3 x10^3/uL (4.8-10.8)
[2018-10-20 19:39] LABS: ALBUMIN/GLOBULIN RATIO 1.2 (1.0-2.2); ALKALINE PHOSPHATASE 78 IU/L (42-121); ALT ALANINE AMINOTRANSFERASE 15 IU/L (10-60); AST ASPARTATE AMINOTRANSFERASE 21 IU/L (10-42); BILIRUBIN,TOTAL 0.5 mg/dL (0.2-1.0); BUN - BLOOD UREA NITROGEN 18 mg/dL (6-20); CALCIUM 9.5 mg/dL (8.5-10.3); CARBON DIOXIDE - CO2 28 mmol/L (21-32); CHLORIDE 106 mmol/L (101-111); CHOL/HDL RATIO 3.8 (<4.4); CHOLESTEROL 211 mg/dL; CREATININE 0.6 mg/dL (0.4-1.0); GFR - MDRD 96 (>89); GLUCOSE 96 mg/dL (70-100); HDL CHOLESTEROL 55 mg/dL; LDL CHOLESTEROL,CALCULATED 102 mg/dL; LDL/HDL RATIO 1.9 (<4.4); SODIUM 141 mmol/L (135-145); TOTAL PROTEIN 7.3 g/dL (6.7-8.2); VLDL CHOLESTEROL 54 mg/dL
== END 2018-10-20 10:46 | disposition home or self-care (01) ==
LOC: LAB.WCP 10:45
PROVIDERS: ATTEND Family Medicine
DX: E78.5 Hyperlipidemia, unspecified (principal)
CPT/HCPCS: 36415; 80053; 80061; 83721; 84443; 85025

== ENCOUNTER 2019-08-21 14:28 | Emergency (ER) | payer MEDICARE, OTHER ==
[2019-08-21 14:50] VITALS: BP 139/58
--- NOTE | 2019-08-21 15:05 | ED Physician Documentation ---
PD HPI HEENT - Stated complaint Stated Complaint: BILAT LOSS OF HEARING - Chief complaint Chief Complaint: Heent - History obtained from History obtained from: Patient - History of Present Illness Timing - onset: Today Timing - duration: Days (1) Timing - details: Abrupt onset, Still present Location: Right ear, Left ear, Other (onset this morning, awoke with considerably diminished hearing both ears. Family noted she could not hear them in their normal tone and amplitude of talking. New onset today. She has tinnitus correction and sometimes has less acuity from that, but significaly diminished today both ears hearing, but the tinnitus is not notably worse.) Improves: Nothing Worsens: No: Noise, Position Associated symptoms: No: Fever, Congestion, Rhinorrhea, Headache Recently seen: Clinic (increased vertigo lately - had Rx for Meclizine by PCP. Also Rx for HCTZ for some leg edema, and Risperdone for sleep/anxiety - these startd over a month ago.) Review of Systems Constitutional: denies: Fever, Chills Ears: reports: Loss of hearing. denies: Drainage/discharge Nose: denies: Rhinorrhea / runny nose, Congestion Throat: denies: Sore throat Respiratory: denies: Cough Skin: denies: Rash, Lesions Neurologic: denies: Altered mental status, Headache PD PAST MEDICAL HISTORY - Past Medical History Cardiovascular: Hypertension, Angina Respiratory: None Neuro: Dementia Endocrine/Autoimmune: None GI: GERD, Chronic constipation MAC ARTIST: Ectopic : Incontinence, Chronic bladder infection HEENT: Other (chronic persistent tinnitus, with increased vertiog episodes lately. ) Psych: Depression, Anxiety, Panic attacks Musculoskeletal: Other Derm: None - Past Surgical History Past Surgical History: Yes General: Colonoscopy /MAC ARTIST: Hysterectomy Cardiovascular: Vascular surgery HEENT: Cataracts, Tonsil/Adenoidectomy - Present Medications Home Medications: Ambulatory Orders Medication Instructions Recorded Confirmed Amlodipine Besylate 5 mg PO DAILY 04/28/13 12/16/17 Cholecalciferol (Vitamin D3) 4,000 unit PO DAILY 04/28/13 12/16/17 [Vitamin D3] Ezetimibe/Simvastatin [Vytorin 1 each PO DAILY 04/28/13 12/16/17 10-40 mg Tablet] FLUoxetine [PROzac] 20 mg PO DAILY 04/28/13 12/16/17 Omeprazole [PriLOSEC] 20 mg PO QDAC 04/28/13 12/16/17 Senna [Senokot] 8.6 mg PO BID 08/10/17 12/16/17 Amox/Clav 875/125 [Augmentin] 1 each PO Q12H #14 tablet 05/02/18 Sulfamethox/Trimeth 800/160 1 each PO BID #14 tablet 05/02/18 [Bactrim Ds 800/160] - Allergies Allergies/Adverse Reactions: Allergies Allergy/AdvReac Type Severity Reaction Status Date / Time No Known Drug Allergies Allergy Verified 08/21/19 14:39 - Social History Does the pt smoke?: No Smoking Status: Never smoker Does the pt drink ETOH?: Yes Does the pt have substance abuse?: No - Immunizations Immunizations are current?: Yes - POLST Patient has POLST: No POLST Status: Full Code PD ED PE NORMAL - Vitals Vital signs reviewed: Yes - General General: Alert and oriented X 3, Well developed/nourished, Other (have to talk loudly to have her hear. ) - HEENT HEENT: PERRL, EOMI (no nystagmus noted), Pharynx benign. No: Ears normal (earwax impaction both ears. 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, No motor deficit, No sensory deficit, Normal speech, Other Eye Opening: Spontaneous Motor: Obeys Commands Verbal: Oriented GCS Score: 15 Results - Vitals Vitals: Vital Signs - 24 hr 08/21/19 14:39 Temperature 36.3 C L Heart Rate 79 Respiratory 18 Rate Blood Pressure 139/58 H O2 Saturation 99 Oxygen O2 Source Room air - Labs Labs: Laboratory Tests 08/21/19 08/21/19 08/21/19 15:54 15:54 15:54 WBC 6.9 RBC 4.57 Hgb 11.0 L Hct 36.2 L MCV 79.2 L MCH 24.1 L MCHC 30.4 L RDW 15.6 H Plt Count 343 MPV 9.3 Neut # (Auto) 5.1 Lymph # (Auto) 1.1 L [place] # (Auto) 0.5 Eos # (Auto) 0.2 Baso # (Auto) 0.0 Absolute Nucleated RBC 0.00 Nucleated RBC % 0.0 ESR 3 Sodium 141 Potassium 3.4 L Chloride 104 Carbon Dioxide 28 Anion Gap 9.0 BUN 18 Creatinine 0.7 Estimated GFR (MDRD) 80 L Glucose 111 H Calcium 9.4 Magnesium 1.7 Total Bilirubin 0.4 AST 22 ALT 18 Alkaline Phosphatase 90 Total Protein 6.9 Albumin 3.7 Globulin 3.2 Albumin/Globulin Ratio 1.2 Lipase 33 PD MEDICAL DECISION MAKING - ED course Complexity details: re-evaluated patient (her hearing is much improved with earwax irrigation and removal. ear exam after earwax disimpaction appears good without signs of infection. ), considered differential (new meds do not list hearing deficit as adverse reactions. She does take aspirin daily for pains, 1-2 daily, though her family says she forgets and sometimes takes it again. To stop that and change to Tylenol as needed. Bilateral hearing loss would not seem neurologic, so consider metabolic, toxic/meds, or mechanical like earwax, along with inner/middle ear processes. ), d/w patient Departure - Departure Disposition: Home, Self Care Clinical Impression: Bilateral hearing loss due to cerumen impaction Tinnitus Qualifiers: Laterality: bilateral Qualified Code(s): H93.13 - Tinnitus, bilateral Condition: Stable Record reviewed to determine appropriate education?: Yes Follow-Up: Kiet Gore MD [Primary Care Provider] - [facility] [Provider Group] Comments: Continue usual medications. Your hearing deficit today seem to be related to the earwax. The ear canals appear normal. However your continued ringing in the ears and dizziness suggest inner ear and middle ear problems. Follow-up with your primary care care but you could also consider seeing an panama hat smearer as well. Stop taking your Aspirin. Change to Tylenol 500 mg three-four times daily for pains. Discharge Date/Time: 08/21/19 16:51
[2019-08-21 15:59] LABS: BASOPHILS % (AUTO) 0.1 %; EOSINOPHILS # (AUTO) 0.2 10^3/uL (0.0-0.7); EOSINOPHILS % (AUTO) 2.5 %; LYMPHOCYTES # (AUTO) 1.1 10^3/uL (1.5-3.5); LYMPHOCYTES % (AUTO) 15.8 %; MEAN CORPUSCULAR HEMOGLOBIN 24.1 pg (27.0-31.0); MEAN CORPUSCULAR HGB CONC 30.4 g/dL (32.0-36.0); MEAN CORPUSCULAR VOLUME 79.2 fL (81.0-99.0); MEAN PLATELET VOLUME 9.3 fL (7.9-10.8); MONOCYTES # (AUTO) 0.5 10^3/uL (0.0-1.0); MONOCYTES % (AUTO) 7.2 %; NEUTROPHILS # (AUTO) 5.1 10^3/uL (1.5-6.6); NEUTROPHILS % (AUTO) 74.1 %; PLT - PLATELET COUNT 343 10^3/uL (130-450); RED BLOOD COUNT 4.57 10^6/uL (4.20-5.40); RED CELL DISTRIBUTION WIDTH 15.6 % (12.0-15.0); WHITE BLOOD COUNT 6.9 x10^3/uL (4.8-10.8)
[2019-08-21 16:14] LABS: ALBUMIN 3.7 g/dL (3.2-5.5); ALBUMIN/GLOBULIN RATIO 1.2 (1.0-2.2); BILIRUBIN,TOTAL 0.4 mg/dL (0.2-1.0); CALCIUM 9.4 mg/dL (8.5-10.3); CREATININE 0.7 mg/dL (0.4-1.0); MAGNESIUM 1.7 mg/dL (1.7-2.8); TOTAL PROTEIN 6.9 g/dL (6.7-8.2)
== END 2019-08-21 16:51 | disposition home or self-care (01) ==
LOC: ED 14:28
DX: H61.23 Impacted cerumen, bilateral (principal); H93.13 Tinnitus, bilateral; I10 Essential (primary) hypertension; F03.90 Unspecified dementia, unspecified severity, without behavioral disturbance, psychotic disturbance, mood disturbance, and anxiety
CPT/HCPCS: 36415; 80053; 83690; 83735; 85025; 85651; 99283; 99284

== ENCOUNTER 2019-10-26 08:00 | Outpatient (CLI) | payer MEDICARE, OTHER ==
[2019-10-26 17:35] LABS: BILIRUBIN,URINE NEGATIVE (NEGATIVE); GLUCOSE, URINE (UA) NEGATIVE (NEGATIVE); KETONES,URINE (UA) NEGATIVE (NEGATIVE); LEUKOCYTE ESTERASE, URINE NEGATIVE (NEGATIVE); NITRITE,URINE NEGATIVE (NEGATIVE); OCCULT BLOOD,URINE NEGATIVE (NEGATIVE); PROTEIN,URINE NEGATIVE (NEGATIVE); UROBILINOGEN,URINE 0.2 (NORMAL) E.U./dL (NORMAL)
[2019-10-26 17:39] LABS: CLARITY,URINE CLEAR (CLEAR)
== END 2019-10-26 23:59 | disposition home or self-care (01) ==
LOC: LAB.R 08:00
PROVIDERS: ATTEND Nurse Practitioner Family
DX: R30.0 Dysuria (principal)
CPT/HCPCS: 81001; 81003; 87086

== ENCOUNTER 2019-10-28 08:39 | Emergency (ER) | payer MEDICARE, OTHER ==
[2019-10-28 11:23] LABS: BILIRUBIN,URINE NEGATIVE (NEGATIVE); GLUCOSE, URINE (UA) NEGATIVE (NEGATIVE); KETONES,URINE (UA) NEGATIVE (NEGATIVE); LEUKOCYTE ESTERASE, URINE LARGE (NEGATIVE); NITRITE,URINE NEGATIVE (NEGATIVE); OCCULT BLOOD,URINE TRACE-INTA (NEGATIVE); PH,URINE 7.5 PH (5.0-7.5); PROTEIN,URINE NEGATIVE (NEGATIVE); UROBILINOGEN,URINE 0.2 (NORMAL) E.U./dL (NORMAL)
[2019-10-28 11:25] LABS: CLARITY,URINE HAZY (CLEAR)
[2019-10-28 11:34] LABS: BACTERIA,URINE Rare /HPF (None Seen); RBC,URINE 0-5 /HPF (0-5); SQUAMOUS EPITHELIAL CELL,UR RARE Squamous (<= Few); WBC CLUMPS,URINE PRESENT
--- NOTE | 2019-10-28 12:01 | ED Physician Documentation ---
PD HPI FEMALE - Stated complaint Stated Complaint: FEMALE - Chief complaint Chief Complaint: Abd Pain - History obtained from History obtained from: Patient, Family - History of Present Illness Timing - onset: How many weeks ago (2) Timing - duration: Weeks (2) Timing - details: Gradual onset, Still present, Waxing and waning Associated symptoms: No: Fever, Back pain, Pelvic pain Similar symptoms before: Diagnosis (UTI) Recently seen: Clinic - Additional information Additional information: 84-year-old female with advanced dementia has developed some urinary urgency frequency dysuria she has been taking some Azo with some relief but last night she had symptoms all night and her is brought her into the emergency department for evaluation. She was seen in the clinic yesterday was unable to produce a urine specimen she produced urine specimen from home sent to the lab that specimen apparently was negative. Review of Systems Constitutional: denies: Fever, Myalgias Eyes: denies: Decreased vision Ears: denies: Ear pain Nose: denies: Congestion Respiratory: denies: Dyspnea GI: denies: Abdominal Pain, Nausea, Vomiting : reports: Dysuria, Frequency PD PAST MEDICAL HISTORY - Past Medical History Past Medical History: Yes Cardiovascular: Hypertension, Angina Respiratory: None Neuro: Dementia Endocrine/Autoimmune: None GI: GERD, Chronic constipation GARMENT PRESSER: Ectopic : Incontinence, Chronic bladder infection HEENT: Other Psych: Depression, Anxiety, Panic attacks Musculoskeletal: Other Derm: None - Past Surgical History Past Surgical History: Yes General: Colonoscopy /GARMENT PRESSER: Hysterectomy Cardiovascular: Vascular surgery HEENT: Cataracts, Tonsil/Adenoidectomy - Present Medications Home Medications: Ambulatory Orders Medication Instructions Recorded Confirmed Amlodipine Besylate 5 mg PO DAILY 04/28/13 12/16/17 Cholecalciferol (Vitamin D3) 4,000 unit PO DAILY 04/28/13 12/16/17 [Vitamin D3] Ezetimibe/Simvastatin [Vytorin 1 each PO DAILY 04/28/13 12/16/17 10-40 mg Tablet] FLUoxetine [PROzac] 20 mg PO DAILY 04/28/13 12/16/17 Omeprazole [PriLOSEC] 20 mg PO QDAC 04/28/13 12/16/17 Senna [Senokot] 8.6 mg PO BID 08/10/17 12/16/17 Amox/Clav 875/125 [Augmentin] 1 each PO Q12H #14 tablet 05/02/18 Sulfamethox/Trimeth 800/160 1 each PO BID #14 tablet 05/02/18 [Bactrim Ds 800/160] Sulfamethoxazole/Trimethoprim 1 each PO BID #14 tablet 10/28/19 [Sulfamethoxazole-Tmp Ds Tablet] - Allergies Allergies/Adverse Reactions: Allergies Allergy/AdvReac Type Severity Reaction Status Date / Time amlodipine Allergy Unknown Verified 10/28/19 08:50 ciprofloxacin [From Cipro] Allergy Unknown Verified 10/28/19 08:50 lisinopril Allergy Anaphylaxis Verified 10/28/19 08:50 - Social History Does the pt smoke?: No Smoking Status: Never smoker Does the pt drink ETOH?: Yes Does the pt have substance abuse?: No - Immunizations Immunizations are current?: Yes - POLST Patient has POLST: No POLST Status: Full Code PD ED PE NORMAL - Vitals Vital signs reviewed: Yes (Hypertensive mild) - General General: No acute distress, Well developed/nourished - HEENT HEENT: Atraumatic, PERRL, EOMI - Respiratory Respiratory: No respiratory distress - Back Back: No CVA TTP, No spinal TTP - Derm Derm: Normal color, Warm and dry, No rash - Extremities Extremities: No deformity, No edema, No calf tenderness / cord - Neuro Neuro: 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, No motor deficit, No sensory deficit, Normal speech Eye Opening: Spontaneous Motor: Obeys Commands Verbal: Confused GCS Score: 14 - Psych Psych: Normal mood, Normal affect Results - Vitals Vitals: Vital Signs - 24 hr 10/28/19 08:46 Temperature 36.5 C Heart Rate 84 Respiratory 18 Rate Blood Pressure 141/74 H O2 Saturation 97 Oxygen O2 Source Room air - Labs Labs: Laboratory Tests 10/28/19 09:07 Urine Color YELLOW Urine Clarity HAZY Urine pH 7.5 Ur Specific [place] 1.010 Urine Protein NEGATIVE Urine Glucose (UA) NEGATIVE Urine Ketones NEGATIVE Urine Occult Blood TRACE-INTA Urine Nitrite NEGATIVE Urine Bilirubin NEGATIVE Urine Urobilinogen 0.2 (NORMAL) Ur Leukocyte Esterase LARGE H Urine RBC 0-5 Urine WBC >25 H Urine WBC Clumps PRESENT Ur Squamous Epith Cells RARE Squamous Urine Bacteria Rare Ur Microscopic Review INDICATED Urine Culture Comments INDICATED PD MEDICAL DECISION MAKING - ED course Complexity details: reviewed results, re-evaluated patient, considered differential, d/w patient, d/w family ED course: 84-year-old female with urinary tract infection without fever or flank pain. We will place her on a course of . Departure - Departure Disposition: Home, Self Care Clinical Impression: Urinary tract infection Qualifiers: Urinary tract infection type: acute cystitis Hematuria presence: without hematuria Qualified Code(s): N30.00 - Acute cystitis without hematuria Condition: Stable Instructions: ED UTI Cystitis Female Follow-Up: Kiet Gore MD [Primary Care Provider] - Prescriptions: Sulfamethoxazole/Trimethoprim [Sulfamethoxazole-Tmp Ds Tablet] 1 each PO BID #14 tablet
[2019-10-28 12:07] VITALS: BP 151/78
== END 2019-10-28 12:11 | disposition home or self-care (01) ==
LOC: ED 08:39
DX: N30.00 Acute cystitis without hematuria (principal); I10 Essential (primary) hypertension; F03.90 Unspecified dementia, unspecified severity, without behavioral disturbance, psychotic disturbance, mood disturbance, and anxiety
CPT/HCPCS: 81001; 81003; 87086; 99283; 99284

== ENCOUNTER 2020-09-26 09:11 | Outpatient (CLI) | payer MEDICARE, OTHER ==
[2020-09-26 13:19] LABS: BASOPHILS # (AUTO) 0.1 10^3/uL (0.0-0.1); BASOPHILS % (AUTO) 0.4 %; EOSINOPHILS # (AUTO) 0.2 10^3/uL (0.0-0.7); EOSINOPHILS % (AUTO) 1.7 %; HGB - HEMOGLOBIN 14.2 g/dL (12.0-16.0); LYMPHOCYTES # (AUTO) 3.9 10^3/uL (1.5-3.5); LYMPHOCYTES % (AUTO) 34.2 %; MEAN CORPUSCULAR HEMOGLOBIN 28.5 pg (27.0-31.0); MEAN CORPUSCULAR HGB CONC 32.9 g/dL (32.0-36.0); MEAN CORPUSCULAR VOLUME 86.6 fL (81.0-99.0); MEAN PLATELET VOLUME 10.6 fL (7.9-10.8); MONOCYTES # (AUTO) 0.7 10^3/uL (0.0-1.0); MONOCYTES % (AUTO) 6.3 %; NEUTROPHILS # (AUTO) 6.5 10^3/uL (1.5-6.6); NEUTROPHILS % (AUTO) 57.1 %; PLT - PLATELET COUNT 382 10^3/uL (130-450); RED BLOOD COUNT 4.99 10^6/uL (4.20-5.40); RED CELL DISTRIBUTION WIDTH 16.2 % (12.0-15.0); WHITE BLOOD COUNT 11.4 x10^3/uL (4.8-10.8)
[2020-09-26 13:54] LABS: ALBUMIN/GLOBULIN RATIO 1.2 (1.0-2.2); ALKALINE PHOSPHATASE 76 IU/L (42-121); ALT ALANINE AMINOTRANSFERASE 16 IU/L (10-60); AST ASPARTATE AMINOTRANSFERASE 25 IU/L (10-42); BILIRUBIN,TOTAL 0.9 mg/dL (0.2-1.0); BUN - BLOOD UREA NITROGEN 16 mg/dL (6-20); CALCIUM 9.2 mg/dL (8.5-10.3); CARBON DIOXIDE - CO2 28 mmol/L (21-32); CHLORIDE 96 mmol/L (101-111); CHOL/HDL RATIO 3.8 (<4.4); CHOLESTEROL 150 mg/dL; CREATININE 1.3 mg/dL (0.4-1.0); GLUCOSE 111 mg/dL (70-100); HDL CHOLESTEROL 39 mg/dL; LDL CHOLESTEROL,CALCULATED 53 mg/dL; LDL/HDL RATIO 1.4 (<4.4); SODIUM 138 mmol/L (135-145); TOTAL PROTEIN 7.4 g/dL (6.7-8.2); VLDL CHOLESTEROL 58 mg/dL
== END 2020-09-26 23:59 | disposition home or self-care (01) ==
LOC: LAB.WCP 09:11
PROVIDERS: ATTEND Family Medicine
DX: F03.91 Unspecified dementia, unspecified severity, with behavioral disturbance (principal); I10 Essential (primary) hypertension; E78.5 Hyperlipidemia, unspecified
CPT/HCPCS: 36415; 80053; 80061; 83721; 84443; 85025

== ENCOUNTER 2020-09-26 18:18 | Emergency (ER) | payer MEDICARE, OTHER ==
--- NOTE | 2020-09-26 19:28 | ED Physician Documentation ---
PD HPI ALTERED MENTAL STATUS - Stated complaint Stated Complaint: LOW POTASSIUM - Chief complaint Chief Complaint: General - History obtained from History obtained from: Patient - History of Present Illness Timing - onset: Unknown (The patient had blood test done this morning in preparation for an upcoming new provider appointment at the clinic in 2 days. The result showed a low potassium of 2.5. She was contacted and told to come to the ER for IV replacement.) Timing - details: Gradual onset (No recent change in medicine and no vomiting or diarrhea. Presumed slow potassium loss from her diuretic.) Quality / character: Confused ( states she has a baseline dementia with some confusion but otherwise has been not acting any differently recently. No generalized weakness per se.) Associated symptoms: No: Fever, Headache Contributing factors: No: Recent med change, Recent illness Basline status: Alert and oriented X 3, Ambulatory, Confused Similar symptoms before: Has not had sx before Recently seen: Not recently seen (We will have a new provider appointment coming up in 2 days. Had not been to her primary care for several months.) Review of Systems Constitutional: denies: Fever, Chills Nose: denies: Rhinorrhea / runny nose, Congestion Throat: denies: Sore throat Respiratory: denies: Cough GI: denies: Nausea, Vomiting, Diarrhea Neurologic: denies: Generalized weakness, Focal weakness, Numbness, Headache PD PAST MEDICAL HISTORY - Past Medical History Past Medical History: Yes Cardiovascular: Hypertension, Angina Respiratory: None Neuro: Dementia Endocrine/Autoimmune: None GI: GERD, Chronic constipation FURNACE MAINTENANCE: Ectopic : Incontinence, Chronic bladder infection HEENT: Other Psych: Depression, Anxiety, Panic attacks Musculoskeletal: Other Derm: None - Past Surgical History Past Surgical History: Yes General: Colonoscopy /FURNACE MAINTENANCE: Hysterectomy Cardiovascular: Vascular surgery HEENT: Cataracts, Tonsil/Adenoidectomy - Present Medications Home Medications: Ambulatory Orders Medication Instructions Recorded Confirmed Cholecalciferol (Vitamin D3) 4,000 unit PO DAILY 04/28/13 12/16/17 [Vitamin D3] Ezetimibe/Simvastatin [Vytorin 1 each PO DAILY 04/28/13 12/16/17 10-40 mg Tablet] FLUoxetine [PROzac] 20 mg PO DAILY 04/28/13 12/16/17 Omeprazole [PriLOSEC] 20 mg PO BID 04/28/13 12/16/17 Ezetimibe/Simvastatin [Vytorin 1 each PO 09/26/20 10-40 mg Tablet] Meclizine HCl [Antivert] 25 mg PO PRN 09/26/20 Memantine HCl [Namenda] 10 mg PO 09/26/20 09/26/20 Mirtazapine [Remeron] 15 mg PO DAILY 09/26/20 09/26/20 Potassium Chloride 10 meq PO DAILY #15 tablet.er 09/26/20 hydroCHLOROthiazide [Hydrodiuril] 25 mg PO DAILY 09/26/20 09/26/20 - Allergies Allergies/Adverse Reactions: Allergies Allergy/AdvReac Type Severity Reaction Status Date / Time amlodipine Allergy Unknown Verified 09/26/20 18:25 ciprofloxacin [From Cipro] Allergy Unknown Verified 09/26/20 18:25 lisinopril Allergy Anaphylaxis Verified 09/26/20 18:25 - Social History Does the pt smoke?: No Smoking Status: Never smoker Does the pt drink ETOH?: Yes Does the pt have substance abuse?: No - Immunizations Immunizations are current?: Yes - POLST Patient has POLST: No POLST Status: Full Code PD ED PE NORMAL - Vitals Vital signs reviewed: Yes - General General: Alert and oriented X 3, No acute distress, Well developed/nourished - Cardiac Cardiac: RRR, No murmur - Respiratory Respiratory: Clear bilaterally - Abdomen Abdomen: Soft, Non tender - Derm Derm: Normal color, Warm and dry - Extremities Extremities: No edema, No calf tenderness / cord - Neuro Neuro: Alert and oriented X 3, No motor deficit, No sensory deficit, Normal speech Eye Opening: Spontaneous Motor: Obeys Commands Verbal: Oriented GCS Score: 15 Results - Vitals Vitals: Vital Signs - 24 hr 09/26/20 09/26/20 09/26/20 18:25 18:29 20:29 Temperature 36.8 C 36.8 C 36.7 C Heart Rate 103 H 103 H 93 Respiratory 20 20 21 Rate Blood Pressure 126/71 126/71 112/77 O2 Saturation 96 96 97 Oxygen O2 Source Room air - Labs Labs: Laboratory Tests 09/26/20 09/26/20 20:30 22:50 Sodium 138 137 Potassium 2.5 L* 2.5 L* Chloride 97 L 99 L Carbon Dioxide 26 26 Anion Gap 15.0 H 12.0 BUN 19 20 Creatinine 1.3 H 1.2 H Estimated GFR (MDRD) 39 L 43 L Glucose 127 H 116 H Calcium 9.4 9.0 Magnesium 1.8 Total Bilirubin 0.6 AST 25 ALT 16 Alkaline Phosphatase 79 Total Protein 7.3 Albumin 3.9 Globulin 3.4 Albumin/Globulin Ratio 1.1 PD MEDICAL DECISION MAKING - ED course Complexity details: considered differential (Likely low slow potassium loss from her diuretic. No clinical scenario to suggest acute loss. We can give IV supplements as she was referred to the ER for that. She appears well so even though its relatively low potassium I do not think she needs to be hospitalized per se.), d/w patient, d/w family () Departure - Departure Disposition: Home, Self Care Clinical Impression: Low blood potassium Condition: Stable Record reviewed to determine appropriate education?: Yes Instructions: Potassium Supplements Follow-Up: Elvis Chance MD [Primary Care Provider] - Prescriptions: Potassium Chloride 10 meq PO DAILY #15 tablet.er Comments: Hold your hydrochlorothiazide until you are seen on by your primary care. You can add oral potassium supplement twice daily for the next several days. Otherwise stay regularly hydrated with low salt diet. Return if problems before your follow-up visit. Discharge Date/Time: 09/27/20 00:14
[2020-09-26] MEDS ORDERED: SODIUM CHLORIDE 0.9% 1,000 ML IV STA (19:42)
[2020-09-26] MEDS ORDERED: POTASSIUM CHLOR 10 MEQ/100 ML 10 MEQ/100 ML BAG IV STA ×2 (19:43→19:44)
[2020-09-26 20:49] LABS: ALBUMIN 3.9 g/dL (3.2-5.5); ALBUMIN/GLOBULIN RATIO 1.1 (1.0-2.2); BILIRUBIN,TOTAL 0.6 mg/dL (0.2-1.0); CALCIUM 9.4 mg/dL (8.5-10.3); CREATININE 1.3 mg/dL (0.4-1.0); MAGNESIUM 1.8 mg/dL (1.7-2.8); TOTAL PROTEIN 7.3 g/dL (6.7-8.2)
[2020-09-26 20:53] VITALS: BP 112/77
[2020-09-27 00:22] LABS: CREATININE 1.2 mg/dL (0.4-1.0)
--- OUTSIDE RECORDS SUMMARY | 2020-09-27 04:55 | EXTERNAL MEDICAL SUMMARY RPT | Continuity of Care Document ---
:1935 Demographics Phone Unavailable Preferred Language Bengali Marital Status Unknown Sikhism Affiliation Unknown Race Unknown Ethnic Group Unknown Author Organization [place] Address [address] [place] [address] Phone Care Team Providers Name Role Phone Demmler Unavailable Unavailable Robisaint paul Unavailable Unavailable MD Unavailable Unavailable Problems date description facility [facility] 2020-09-26 00:00 ESSENTIAL (PRIMARY) [facility] HYPERTENSION 2020-09-26 00:00:00 TSH WITH REFLEX TO FT4 [facility] 2020-09-26 00:00:00 Basic Metabolic Panel (BMP) [facility] 2020-09-26 00:00:00 COMPREHENSIVE METABOLIC PANEL [facility] 2020-09-26 00:00:00 LIPID SCREEN, FASTING [facility] 2020-09-26 00:00:00 Magnesium (Mg) [facility] 2020-09-26 00:00:00 [facility] Allergies date description facility CELECOXIB [facility] HYDROCODONE-ACETAMINOPHEN [facility] PENICILLINS [facility] PROTON PUMP INHIBITORS [facility] NO KNOWN ALLERGIES [facility] CODEINE [facility] PENICILLIN [facility] PHENYTOIN SODIUM EXTENDED [facility] HYDROCHLOROTHIAZIDE [facility] NAPROXEN [facility] CEPHALEXIN [facility] OMEPRAZOLE [facility] LANSOPRAZOLE [facility] LISINOPRIL [facility] PANTOPRAZOLE SODIUM [facility] SULFAMETHOXAZOLE-TRIMETHOPRIM [facility] NSAIDS (NON-STEROIDAL ANTI-INFLAMMATORY DRUG) [facility] NO KNOWN ALLERGIES [facility] ATENOLOL [facility] DOXYCYCLINE [facility] AMLODIPINE [facility] SUMATRIPTAN [facility] LISINOPRIL [facility] lisinopril [facility] ciprofloxacin [facility] amlodipine [facility] Procedures date description facility 2020-09-26 00:00:00 TSH WITH REFLEX TO FT4 [facility] date description facility 2020-09-26 00:00:00 COMPREHENSIVE METABOLIC PANEL [facility] date description facility 2020-09-26 00:00:00 LIPID SCREEN, FASTING [facility] date description facility 2020-09-26 00:00:00 CBC W/Diff/Plt [facility] date description facility 2020-09-26 00:00:00 [facility] Results Social History date description facility [id number]
== END 2020-09-27 00:14 | disposition home or self-care (01) ==
LOC: ED 18:18
DX: E87.6 Hypokalemia (principal); F03.90 Unspecified dementia, unspecified severity, without behavioral disturbance, psychotic disturbance, mood disturbance, and anxiety; I10 Essential (primary) hypertension
CPT/HCPCS: 80048; 80053; 83735; 96365; 96366; 99283

== ENCOUNTER 2020-09-28 10:14 | Outpatient (CLI) | payer MEDICARE, OTHER ==
[2020-09-28 12:36] LABS: CALCIUM 9.3 mg/dL (8.5-10.3); CREATININE 0.9 mg/dL (0.4-1.0)
== END 2020-09-28 23:59 | disposition home or self-care (01) ==
LOC: LAB.WCP 10:14
PROVIDERS: ATTEND Family Medicine
DX: N17.0 Acute kidney failure with tubular necrosis (principal); E87.6 Hypokalemia
CPT/HCPCS: 36415; 80048

== ENCOUNTER 2021-07-10 09:46 | Outpatient (CLI) | payer MEDICARE, OTHER ==
[2021-07-10 11:30] LABS: BASOPHILS % (AUTO) 0.6 %; EOSINOPHILS # (AUTO) 0.2 10^3/uL (0.0-0.7); EOSINOPHILS % (AUTO) 3.6 %; HCT - HEMATOCRIT 42.3 % (37.0-47.0); HGB - HEMOGLOBIN 13.7 g/dL (12.0-16.0); LYMPHOCYTES # (AUTO) 2.1 10^3/uL (1.5-3.5); MEAN CORPUSCULAR HEMOGLOBIN 29.7 pg (27.0-31.0); MEAN CORPUSCULAR HGB CONC 32.4 g/dL (32.0-36.0); MEAN CORPUSCULAR VOLUME 91.8 fL (81.0-99.0); MEAN PLATELET VOLUME 10.2 fL (7.9-10.8); MONOCYTES # (AUTO) 0.5 10^3/uL (0.0-1.0); MONOCYTES % (AUTO) 7.2 %; NEUTROPHILS # (AUTO) 3.6 10^3/uL (1.5-6.6); NEUTROPHILS % (AUTO) 56.4 %; PLT - PLATELET COUNT 310 10^3/uL (130-450); RED BLOOD COUNT 4.61 10^6/uL (4.20-5.40); RED CELL DISTRIBUTION WIDTH 14.6 % (12.0-15.0); WHITE BLOOD COUNT 6.4 x10^3/uL (4.8-10.8)
[2021-07-10 12:02] LABS: ALBUMIN/GLOBULIN RATIO 1.2 (1.0-2.2); ALKALINE PHOSPHATASE 97 IU/L (42-121); ALT ALANINE AMINOTRANSFERASE 15 IU/L (10-60); AST ASPARTATE AMINOTRANSFERASE 20 IU/L (10-42); BILIRUBIN,TOTAL 0.6 mg/dL (0.2-1.0); BUN - BLOOD UREA NITROGEN 12 mg/dL (6-20); CALCIUM 9.8 mg/dL (8.5-10.3); CARBON DIOXIDE - CO2 27 mmol/L (21-32); CHLORIDE 105 mmol/L (101-111); CHOL/HDL RATIO 4.6 (<4.4); CHOLESTEROL 184 mg/dL; CREATININE 0.7 mg/dL (0.4-1.0); GFR - MDRD 80 (>89); GLUCOSE 119 mg/dL (70-100); HDL CHOLESTEROL 40 mg/dL; LDL CHOLESTEROL,CALCULATED 97 mg/dL; LDL/HDL RATIO 2.4 (<4.4); MAGNESIUM 1.8 mg/dL (1.7-2.8); POTASSIUM 3.8 mmol/L (3.5-5.0); SODIUM 142 mmol/L (135-145); TOTAL PROTEIN 7.3 g/dL (6.7-8.2); TRIGLYCERIDES 233 mg/dL; VLDL CHOLESTEROL 47 mg/dL
[2021-07-10 12:11] LABS: THYROID STIMULATING HORMONE 3.09 uIU/mL (0.34-5.60)
== END 2021-07-10 23:59 | disposition home or self-care (01) ==
LOC: LAB.WCP 09:46
PROVIDERS: ATTEND Family Medicine
DX: E87.6 Hypokalemia (principal); F03.90 Unspecified dementia, unspecified severity, without behavioral disturbance, psychotic disturbance, mood disturbance, and anxiety; R13.14 Dysphagia, pharyngoesophageal phase
CPT/HCPCS: 36415; 80053; 80061; 83721; 83735; 84443; 85025

== ENCOUNTER 2022-05-17 14:35 | Outpatient (CLI) | payer MEDICARE, OTHER | END 2022-05-17 14:36 | disposition critical access hospital (66) | LOC: EMS 14:35 | DX: R53.1 Weakness (principal); R63.0 Anorexia; R13.10 Dysphagia, unspecified; R29.6 Repeated falls; R23.0 Cyanosis; F03.90 Unspecified dementia, unspecified severity, without behavioral disturbance, psychotic disturbance, mood disturbance, and anxiety | CPT/HCPCS: A0425; A0429 ==

== ENCOUNTER 2022-05-17 14:54 | Inpatient (IN) | payer MEDICARE, OTHER ==
--- NOTE | 2022-05-17 15:31 | ED Physician Documentation ---
History of Present Illness - Stated complaint Stated Complaint: WEAKNESS/HIP PX - Chief complaint Chief Complaint: General - Additonal information Additional information: 89-year-old female male was brought to the emergency department for evaluation of multiple falls over the last week as well as increased weakness. Her at the bedside provides the history. He reports patient has had dementia for about 8 years. She has had at least 5 falls over the last week. She was previously able to get out of bed and use a walker but has been unable to walk for at least the last week. She is also been unable to swallow or take any of her medication for at least that same amount of time. Patient is followed by Dr. Frausto. reports that they stopped her lisinopril because her blood pressures have been normal. She is also been seen by a psychiatrist who did stop 2 of her other medications simply because she was not able to swallow. The family has considered hospice and/or comfort care measures but they have been unable to have the consult completed. At this time the would request full resuscitative measures Patient presented to the emergency department on room air having saturations of 88 to 89%. She was placed on nasal cannula with resultant rise to 94%. Does not have a history of requiring oxygen use at home. Review of Systems Unable to obtain: Dementia Neurologic: reports: Generalized weakness PD PAST MEDICAL HISTORY - Past Medical History Cardiovascular: Hypertension, Angina Respiratory: None Neuro: Dementia Endocrine/Autoimmune: None GI: GERD, Chronic constipation RETIREMENT MANAGER: Ectopic : Incontinence, Chronic bladder infection HEENT: Other Psych: Depression, Anxiety, Panic attacks Musculoskeletal: Other Derm: None - Past Surgical History Past Surgical History: Yes General: Colonoscopy /RETIREMENT MANAGER: Hysterectomy Cardiovascular: Vascular surgery HEENT: Cataracts, Tonsil/Adenoidectomy - Present Medications Home Medications: Ambulatory Orders Medication Instructions Recorded Confirmed Cholecalciferol (Vitamin D3) 4,000 unit PO DAILY 04/28/13 12/16/17 [Vitamin D3] Ezetimibe/Simvastatin [Vytorin 1 each PO DAILY 04/28/13 12/16/17 10-40 mg Tablet] FLUoxetine [PROzac] 20 mg PO DAILY 04/28/13 12/16/17 Omeprazole [PriLOSEC] 20 mg PO BID 04/28/13 12/16/17 Ezetimibe/Simvastatin [Vytorin 1 each PO 09/26/20 10-40 mg Tablet] Meclizine HCl [Antivert] 25 mg PO PRN 09/26/20 Memantine HCl [Namenda] 10 mg PO 09/26/20 09/26/20 Mirtazapine [Remeron] 15 mg PO DAILY 09/26/20 09/26/20 Potassium Chloride 10 meq PO DAILY #15 tablet.er 09/26/20 hydroCHLOROthiazide [Hydrodiuril] 25 mg PO DAILY 09/26/20 09/26/20 - Allergies Allergies/Adverse Reactions: Allergies Allergy/AdvReac Type Severity Reaction Status Date / Time amlodipine Allergy Unknown Verified 09/26/20 18:25 ciprofloxacin [From Cipro] Allergy Unknown Verified 09/26/20 18:25 lisinopril Allergy Anaphylaxis Verified 09/26/20 18:25 - Social History Does the pt smoke?: No Smoking Status: Never smoker Does the pt drink ETOH?: Yes Does the pt have substance abuse?: No - Immunizations Immunizations are current?: Yes - POLST Patient has POLST: No POLST Status: Full Code PD ED PE EXPANDED - General General: Lethargic - Cardiac Cardiac: Regular Rate, Radial strong equal, Pedal strong equal, Cap refill < 2 sec - Respiratory Respiratory: Clear to ausultation tania. No: Distress, Labored - Abdomen Abdomen: Normal Bowel sounds. No: Tender to palpation - Extremities Extremities: Other (Grimace elicited with internal rotation of the left hip. No tenderness with palpation over the iliac crest or proximal greater trochanter. No malrotation or deformity. 2+ distal DP pulse) - Neuro Neuro: Lethargic - GCS Eye Opening: To Voice Motor: Localizes to Pain Verbal: Inappropriate Total: 11 Results - Vitals Vitals: Vital Signs - 24 hr 05/17/22 05/17/22 05/17/22 15:04 15:36 15:43 Temperature 36.2 C L Heart Rate 92 Respiratory 18 22 Rate Blood Pressure 122/71 O2 Saturation 95 89 L 94 05/17/22 05/17/22 05/17/22 18:04 18:08 18:54 Temperature 36.7 C Heart Rate 76 77 Respiratory 24 20 22 Rate Blood Pressure 154/89 H O2 Saturation 87 L 95 97 Oxygen O2 Source Nasal cannula - EKG (time done) 1817 Rate: Rate (enter#) (77) Rhythm: NSR, Other (pvc's) [place]: Normal Intervals: Normal CA QRS: Normal Ischemia: Non specific changes Compare to prior EKG: Unchanged from prior EKG Computer interpretation: Agree with computer - Labs Labs: Laboratory Tests 05/17/22 05/17/22 05/17/22 15:44 15:44 15:44 WBC 15.6 H RBC 4.93 Hgb 14.5 Hct 42.7 MCV 86.6 MCH 29.4 MCHC 34.0 RDW 14.5 Plt Count 322 MPV 10.2 Neut # (Auto) 13.6 H Lymph # (Auto) 0.9 L [place] # (Auto) 1.0 Eos # (Auto) 0.0 Baso # (Auto) 0.0 Absolute Nucleated RBC 0.00 Nucleated RBC % 0.0 Sodium 142 Potassium 3.1 L Chloride 103 Carbon Dioxide 26 Anion Gap 13.0 BUN 22 H Creatinine 0.6 Estimated GFR (MDRD) 95 Glucose 136 H Lactic Acid 1.0 Calcium 9.5 Total Bilirubin 1.5 H AST 100 H ALT 196 H Alkaline Phosphatase 222 H Troponin I High Sens B-Natriuretic Peptide Total Protein 6.9 Albumin 2.6 L Globulin 4.3 H Albumin/Globulin Ratio 0.6 L Lipase 27 TSH Thyroxine (T4) Urine Color Urine Clarity Urine pH Ur Specific [place] Urine Protein Urine Glucose (UA) Urine Ketones Urine Occult Blood Urine Nitrite Urine Bilirubin Urine Urobilinogen Ur Leukocyte Esterase Urine RBC Urine WBC Ur Squamous Epith Cells Amorphous Sediment Urine Bacteria Ur Microscopic Review Urine Culture Comments Nasal Adenovirus (PCR) Nasal B. parapertussis DNA (PCR) Nasal Coronavir 229E PCR Nasal Coronavir HKU1 PCR Nasal Coronavir NL63 PCR Nasal Coronavir OC43 PCR Nasal Enterovir/Rhinovir PCR Nasal Influenza B PCR Nasal Influenza A PCR Nasal Parainfluen 1 PCR Nasal Parainfluen 2 PCR Nasal Parainfluen 3 PCR Nasal Parainfluen 4 PCR Nasal RSV (PCR) Nasal B.pertussis DNA PCR Nasal C.pneumoniae (PCR) Yogesh Human Metapneumo PCR Nasal M.pneumoniae (PCR) Nasal SARS-CoV-2 (PCR) 05/17/22 05/17/22 05/17/22 15:44 15:44 15:44 WBC RBC Hgb Hct MCV MCH MCHC RDW Plt Count MPV Neut # (Auto) Lymph # (Auto) [place] # (Auto) Eos # (Auto) Baso # (Auto) Absolute Nucleated RBC Nucleated RBC % Sodium Potassium Chloride Carbon Dioxide Anion Gap BUN Creatinine Estimated GFR (MDRD) Glucose Lactic Acid Calcium Total Bilirubin AST ALT Alkaline Phosphatase Troponin I High Sens 17.5 H* B-Natriuretic Peptide 93 Total Protein Albumin Globulin Albumin/Globulin Ratio Lipase TSH 0.58 Thyroxine (T4) 11.29 Urine Color Urine Clarity Urine pH Ur Specific [place] Urine Protein Urine Glucose (UA) Urine Ketones Urine Occult Blood Urine Nitrite Urine Bilirubin Urine Urobilinogen Ur Leukocyte Esterase Urine RBC Urine WBC Ur Squamous Epith Cells Amorphous Sediment Urine Bacteria Ur Microscopic Review Urine Culture Comments Nasal Adenovirus (PCR) Nasal B. parapertussis DNA (PCR) Nasal Coronavir 229E PCR Nasal Coronavir HKU1 PCR Nasal Coronavir NL63 PCR Nasal Coronavir OC43 PCR Nasal Enterovir/Rhinovir PCR Nasal Influenza B PCR Nasal Influenza A PCR Nasal Parainfluen 1 PCR Nasal Parainfluen 2 PCR Nasal Parainfluen 3 PCR Nasal Parainfluen 4 PCR Nasal RSV (PCR) Nasal B.pertussis DNA PCR Nasal C.pneumoniae (PCR) Yogesh Human Metapneumo PCR Nasal M.pneumoniae (PCR) Nasal SARS-CoV-2 (PCR) 05/17/22 05/17/22 16:33 18:14 WBC RBC Hgb Hct MCV MCH MCHC RDW Plt Count MPV Neut # (Auto) Lymph # (Auto) [place] # (Auto) Eos # (Auto) Baso # (Auto) Absolute Nucleated RBC Nucleated RBC % Sodium Potassium Chloride Carbon Dioxide Anion Gap BUN Creatinine Estimated GFR (MDRD) Glucose Lactic Acid Calcium Total Bilirubin AST ALT Alkaline Phosphatase Troponin I High Sens B-Natriuretic Peptide Total Protein Albumin Globulin Albumin/Globulin Ratio Lipase TSH Thyroxine (T4) Urine Color DARK YELLOW Urine Clarity HAZY Urine pH 6.0 Ur Specific [place] 1.025 Urine Protein TRACE Urine Glucose (UA) NEGATIVE Urine Ketones 15 H Urine Occult Blood NEGATIVE Urine Nitrite NEGATIVE Urine Bilirubin SMALL H Urine Urobilinogen 4 H Ur Leukocyte Esterase NEGATIVE Urine RBC 0-5 Urine WBC 4-5 Ur Squamous Epith Cells RARE Squamous Amorphous Sediment Few Urine Bacteria Rare Ur Microscopic Review INDICATED Urine Culture Comments NOT INDICATED Nasal Adenovirus (PCR) NOT DETECTED Nasal B. parapertussis DNA (PCR) NOT DETECTED Nasal Coronavir 229E PCR NOT DETECTED Nasal Coronavir HKU1 PCR NOT DETECTED Nasal Coronavir NL63 PCR NOT DETECTED Nasal Coronavir OC43 PCR NOT DETECTED Nasal Enterovir/Rhinovir PCR NOT DETECTED Nasal Influenza B PCR NOT DETECTED Nasal Influenza A PCR NOT DETECTED Nasal Parainfluen 1 PCR NOT DETECTED Nasal Parainfluen 2 PCR NOT DETECTED Nasal Parainfluen 3 PCR NOT DETECTED Nasal Parainfluen 4 PCR NOT DETECTED Nasal RSV (PCR) NOT DETECTED Nasal B.pertussis DNA PCR NOT DETECTED Nasal C.pneumoniae (PCR) NOT DETECTED Yogesh Human Metapneumo PCR NOT DETECTED Nasal M.pneumoniae (PCR) NOT DETECTED Nasal SARS-CoV-2 (PCR) NOT DETECTED - Rads (name of study) head ct Radiology: Final report received (CT head without acute intracranial abnormalities. No acute calvarial fractures) cxr Radiology: Final report received (Low lung volumes, interstitial prominence and cardiomegaly suggest doing congestive failure. Probable hiatal hernia which is incompletely characterized) left hip xr Radiology: Final report received (No acute fracture visualized. If pain persist consider cross-sectional imaging to evaluate for occult fracture) abd US Radiology: Other (Per Sound technologist: pancreatic cyst no obvious obstruction.) PD MEDICAL DECISION MAKING - ED course Complexity details: reviewed results, re-evaluated patient, considered differential, d/w patient, d/w [facility] consultant ([facility]) ED course: 87-year-old female presents to the emergency department for evaluation of generalized weakness that has progressed over the last week. She does have a longstanding history of dementia that was Diagnosed approximately 8 years ago. Per her at the bedside she was previously ambulatory with assistance using a walker but over the last week has been bedbound unable to get out of bed. She is also stopped eating and drinking and has been unable to swallow any of her pills. Due to the acute decline in her status she is brought to the emergency department for evaluation. On presentation she had room air saturations of 87 to 89%. No history of oxygen requirement at home saturations improved following nasal cannula oxygen administration. Routine labs were obtained in the emergency department. There is no findings to suggest urinary tract infection. CBC shows mild leukocytosis of 15,000. Her electrolytes however do show some acute LFT abnormalities which are markedly changed from labs obtained about 1 year ago. I was unable to elicit any significant abdominal tenderness on my exam though again the history is limited due to her dementia. CT of her head was without acute focal findings. A CT of her abdomen was completed given the new transaminase. No acute findings were seen within the abdomen specifically with regards to the liver. We do find however that she has some focal consolidation in the left lower lobe consistent with pneumonia. Given the hypoxia and leukocytosis we will initiate treatment for pneumonia. She is given ceftriaxone and azithromycin. Patient does not present as septic. Her lactate is not elevated she has no vital sign abnormality. A screening EKG was nonischemic. Troponin was also not elevated as well as a BNP. At this time the etiology of her transaminase is not clear. The patient was presented to telemetry hospitalist Dr. Anton at approximately 1945 this [facility] For further admission to the hospital. At this time she does remain a full code though I have discussed with the family that it is likely in the ensuing days she may benefit from a comfort care status Given her advancing age, history of dementia and clinical evaluation. Departure - Departure Disposition: 66 [facility] DC/Xfer Clinical Impression: Hypoxia, Abnormal LFTs (liver function tests) Pneumonia Qualifiers: Pneumonia type: due to unspecified organism Laterality: unspecified laterality Lung location: unspecified part of lung Qualified Code(s): J18.9 - Pneumonia, unspecified organism Discharge Date/Time: 05/17/22 20:25
[2022-05-17 15:58] LABS: BASOPHILS % (AUTO) 0.1 %; EOSINOPHILS % (AUTO) 0.1 %; HCT - HEMATOCRIT 42.7 % (37.0-47.0); HGB - HEMOGLOBIN 14.5 g/dL (12.0-16.0); LYMPHOCYTES # (AUTO) 0.9 10^3/uL (1.5-3.5); LYMPHOCYTES % (AUTO) 5.9 %; MEAN CORPUSCULAR HEMOGLOBIN 29.4 pg (27.0-31.0); MEAN CORPUSCULAR VOLUME 86.6 fL (81.0-99.0); MEAN PLATELET VOLUME 10.2 fL (7.9-10.8); MONOCYTES % (AUTO) 6.2 %; NEUTROPHILS # (AUTO) 13.6 10^3/uL (1.5-6.6); PLT - PLATELET COUNT 322 10^3/uL (130-450); RED BLOOD COUNT 4.93 10^6/uL (4.20-5.40); RED CELL DISTRIBUTION WIDTH 14.5 % (12.0-15.0); WHITE BLOOD COUNT 15.6 x10^3/uL (4.8-10.8)
--- NOTE | 2022-05-17 16:10 | CT Report ---
PROCEDURE: HEAD WO INDICATIONS: multiple falls; ams TECHNIQUE: Noncontrast 4.5 mm thick angled axial sections acquired from the foramen magnum to the vertex. For r adiation dose reduction, the following was used: automated exposure control, adjustment of mA and/or kV according to patient size. COMPARISON: Prior brain MRIs from 2016 not available for review. FINDINGS: Image quality: Excellent. CSF spaces: Basal cisterns are patent. No extra-axial fluid collections. Ventricles are normal in size and shape. Brain: No midline shift. No intracranial masses or hemorrhage. No mass effect. Anthony-white matter i nterface is normal. There is moderate cerebral volume loss for age with resultant ventricular and sul connie prominence. There are moderate periventricular and deep white matter chronic small vessel ischemi c changes. Atherosclerotic calcifications are noted in the intracranial segments of the bilateral int ernal carotid arteries. Skull and face: Calvarium and visualized facial bones are intact, without suspicious lesions. Incide ntal note of hyperostosis frontalis. Sinuses: Visualized sinuses and mastoids are clear. IMPRESSION: 1. CT head without acute intracranial abnormalities. No acute calvarial fractures. 2. Age-related senescent changes and sequela of chronic small vessel ischemic disease. Reviewed by: Chavez Madrid MD on 05/17/2022 4:09 PM PDT Approved by: Chavez Madrid MD on 05/17/2022 4:09 PM PDT Station ID: [id number]
[2022-05-17 16:11] LABS: ALBUMIN 2.6 g/dL (3.2-5.5); ALBUMIN/GLOBULIN RATIO 0.6 (1.0-2.2); BILIRUBIN,TOTAL 1.5 mg/dL (0.2-1.0); CALCIUM 9.5 mg/dL (8.5-10.3); CREATININE 0.6 mg/dL (0.4-1.0); POTASSIUM 3.1 mmol/L (3.5-5.0); TOTAL PROTEIN 6.9 g/dL (6.7-8.2)
[2022-05-17 16:24] LABS: T4 (THYROXINE) 11.29 ug/dL (6.09-12.23)
[2022-05-17 16:28] LABS: THYROID STIMULATING HORMONE 0.58 uIU/mL (0.34-5.60)
--- NOTE | 2022-05-17 16:42 | XRAY Report ---
PROCEDURE: Hip w/Pelvis 2-3V LT INDICATIONS: multiple falls; left hip pain TECHNIQUE: AP pelvis with lateral view(s) of the left hip(s). COMPARISON: None. FINDINGS: Bones: No fractures or dislocations. Pelvic ring appears intact. No suspicious bony lesions. Soft tissues: The visualized bowel gas pattern is normal. No suspicious soft tissue calcifications. IMPRESSION: No acute fracture visualized. If pain persists, consider cross-sectional imaging to eval uate for occult fracture. Reviewed by: Delmy Pickering MD on 05/17/2022 4:40 PM PDT Approved by: Delmy Pickering MD on 05/17/2022 4:40 PM PDT Station ID: [id number]
--- NOTE | 2022-05-17 16:43 | XRAY Report ---
PROCEDURE: Chest 1 View X-Ray INDICATIONS: chest pain TECHNIQUE: One view of the chest was acquired. COMPARISON: None available FINDINGS: Surgical changes and devices: None. Lungs and pleura: Lung volumes are low. There is diffuse interstitial prominence. There is a left pl eural effusion and left basilar airspace opacities. Mediastinum: Mediastinal contours appear normal. Heart size is enlarged. There is likely a large ga s-filled hiatal hernia. Bones and chest wall: No suspicious bony lesions. Overlying soft tissues appear unremarkable. IMPRESSION: 1. Low lung volumes, interstitial prominence, and cardiomegaly suggesting congestive failure. 2. Probable hiatal hernia which is incompletely characterized on single anterior view. Reviewed by: Delmy Pickering MD on 05/17/2022 4:42 PM PDT Approved by: Delmy Pickering MD on 05/17/2022 4:42 PM PDT Station ID: [id number]
[2022-05-17 16:52] LABS: GLUCOSE, URINE (UA) NEGATIVE (NEGATIVE); KETONES,URINE (UA) 15 mg/dL (NEGATIVE); LEUKOCYTE ESTERASE, URINE NEGATIVE (NEGATIVE); NITRITE,URINE NEGATIVE (NEGATIVE); OCCULT BLOOD,URINE NEGATIVE (NEGATIVE); PROTEIN,URINE TRACE mg/dL (NEGATIVE); UROBILINOGEN,URINE 4 E.U./dL (NORMAL)
[2022-05-17 17:00] LABS: BILIRUBIN,URINE SMALL (NEGATIVE); CLARITY,URINE HAZY (CLEAR); ICTOTEST,URINE POSITIVE
[2022-05-17 17:01] LABS: AMORPHOUS SEDIMENT,UR Few /LPF; BACTERIA,URINE Rare /HPF (None Seen); RBC,URINE 0-5 /HPF (0-5); SQUAMOUS EPITHELIAL CELL,UR RARE Squamous (<= Few)
[2022-05-17] MEDS ORDERED: SODIUM CHLORIDE 0.9% 1,000 ML IV STA (17:33)
[2022-05-17] MEDS ORDERED: cefTRIAXone 1 GM VIAL IVP STA (18:07)
[2022-05-17] MEDS ORDERED: AZITHROMYCIN INJ 500 MG in SODIUM CHLORIDE 0.9% 250 ML IV STA (18:08)
[2022-05-17] MEDS ORDERED: ONDANSETRON ODT 4 MG TABLET TL PRN (18:14)
[2022-05-17] MEDS ORDERED: ACETAMINOPHEN 325 MG TABLET PO PRN (18:14)
[2022-05-17] MEDS ORDERED: ONDANSETRON 4 MG/2 ML VIAL IVP PRN (18:14)
[2022-05-17] MEDS ORDERED: oxyCODONE 5 MG TABLET PO PRN (18:14)
[2022-05-17] MEDS ORDERED: SODIUM CHLORIDE FLUSH 0.9% 10 ML SYRINGE IVP PRN (18:14)
[2022-05-17 19:09] LABS: B. PARAPERTUSSIS- RESP PCR PAN NOT DETECTED; B. PERTUSSIS- RESP PCR PANEL NOT DETECTED; C. PNEUMONIAE- RESP PCR PANEL NOT DETECTED; CORONAVIRUS 229E-RESP PCR NOT DETECTED; CORONAVIRUS HKU1-RESP PCR NOT DETECTED; CORONAVIRUS NL63-RESP PCR NOT DETECTED; CORONAVIRUS OC43-RESP PCR NOT DETECTED; HUMAN METAPNEUMOVIRUS NOT DETECTED; INFLUENZA A- RESP PCR PANEL NOT DETECTED; INFLUENZA B - RESP PCR PANEL NOT DETECTED; M. PNEUMONIAE- RESP PCR PANEL NOT DETECTED; PARAINFLUENZA VIRUS 1 NOT DETECTED; PARAINFLUENZA VIRUS 2 NOT DETECTED; PARAINFLUENZA VIRUS 3 NOT DETECTED; PARAINFLUENZA VIRUS 4 NOT DETECTED; RHINOVIRUS/ENTEROVIRUS NOT DETECTED; RSV- RESP PCR PANEL NOT DETECTED; SARS-CoV-2 -RESP PCR PANEL NOT DETECTED
--- NOTE | 2022-05-17 19:18 | CT Report ---
PROCEDURE: Abdomen/Pelvis WO INDICATIONS: ABNORMAL LFT, HIP PAIN TECHNIQUE: Noncontrast 5 mm thick sections acquired from the diaphragms to the symphysis. 5 mm coronal and sagi ttal reformats were then performed. For radiation dose reduction, the following was used: automated exposure control, adjustment of mA and/or kV according to patient size. COMPARISON: None. FINDINGS: Image quality: Excellent. ABDOMEN: Lung bases: There are bibasilar airspace opacities likely atelectasis on the right but possibly pneum onia on the left. Heart size is enlarged. Solid organs: Liver and spleen are normal in size. Gallbladder is normal. Pancreas is normal in co ntours. No adrenal nodules. Both kidneys have multiple cysts. Peritoneum and bowel: There is a large hiatal hernia containing most of the stomach. The small bowel has a normal caliber and appearance with no obstruction. The large bowel has a normal caliber and villa earance with diverticula. There is no evidence of diverticulosis Nodes and vessels: No retroperitoneal or mesenteric adenopathy by size criteria. Aorta and inferior vena cava are normal in caliber. The aorta has diffuse atherosclerotic calcifications. Miscellaneous: No ventral hernias. PELVIS: Genitourinary: Bladder wall thickness is normal. Miscellaneous: No inguinal hernias or adenopathy. Bones: No suspicious bony lesions. No vertebral body compression fractures. IMPRESSION: 1. No acute abdominal or pelvic abnormality. 2. Large hiatal hernia. 3. Left basilar infiltrate consistent with pneumonia and/or atelectasis. 4. Right basilar atelectasis. 5. Cardiomegaly. 6. Bilateral simple renal cysts. Reviewed by: Jose Santana on 05/17/2022 7:17 PM PDT Approved by: Jose Santana on 05/17/2022 7:17 PM PDT Station ID: [id number]
--- NOTE | 2022-05-17 19:28 | Ultrasound Report ---
PROCEDURE: Abdomen Limited INDICATIONS: abnormal lft TECHNIQUE: Real-time focused scanning was performed of the abdomen, with image documentation. COMPARISON: None FINDINGS: Liver: The liver is 15.5 cm. Echotexture is homogenous. Gallbladder: No stones or wall thickening. Tiny benign gallbladder polyps measuring less than 5 mm ar e seen. No pericholecystic fluid. Biliary tree: No intrahepatic biliary ductal dilatation. The common bile duct measures 5.9 mm. Pancreas: 2 pancreatic cysts are seen measuring 1.6 x 1.5 x 2.0 cm in the head/body and in the tail m easuring 1.4 x 1.2 x 1.4 cm in the tail. Kidneys: The right kidney has a normal size with a large parapelvic cyst measuring 4.9 x 3.1 x 3.6 cm . IMPRESSION: 1. No acute abdominal or pelvic abnormality. 2.Pancreatic cysts of the head/body and tail as above. Recommend follow-up in one year to ensure stab ility. Reviewed by: Jose Santana on 05/17/2022 7:27 PM PDT Approved by: Jose Santana on 05/17/2022 7:27 PM PDT Station ID: [id number]
--- NOTE | 2022-05-17 20:10 | HISTORY & PHYSICAL EXAMINATION ---
Chief Complaint - Chief Complaint Chief Complaint: Weakness History of Present Illness - Admitted From Admitted From:: ER - History Obtained From History obtained from: - History of Present Illness HPI Comment/Other: 87 y old female with PMH HTN, Dementia , GERD broghtin to the ER due to Generalised weakness and fall for last one week. Pt is unable to provide ay me aningful history so hiatory is by the julisa present at bedside. As per , pt has advanced dementia.She was able to ambulate woth walker until one week ago. For the last one week, she is very weak, unable to ambulate or swallow. She has not been able to take any meds. She has had about 5 falls in the last one week. Pt also has cough and her breathing has been faster and shallow. No h/o SILVERMAN, chest pain, nausea, vomiting, diarrhea, constipation, symptoms, On presentaion, pt was afebrile, hypoxic. She was put on oxygen and Sao2 went up to 94% Labs showed WBC 15.1, K 3.1, abnormal LFT. COVID pne CXR showed LLL infiltare CT head showed no acute abnormalities US abdomen and CT abdomen/pelvis showed no acute abnormalities In ER, pt was given, IV ceftriaxone and zithromax Patient is being admitted due to pneumonia, weakness, failure to thrive, hypokalemia, dehydation, abnormal LFT `s History - Past Medical History Cardiovascular: reports: Hypertension, Angina Respiratory: reports: None Neuro: reports: Dementia Endocrine/Autoimmune: reports: None GI: reports: GERD, Chronic constipation ELEVATED MOTORMAN: reports: Ectopic : reports: Incontinence, Chronic bladder infection HEENT: reports: Other Psych: reports: Depression, Anxiety, Panic attacks Musculoskeletal: reports: Other Derm: reports: None MRSA Hx?: No - Past Surgical History General: reports: Colonoscopy /ELEVATED MOTORMAN: reports: Hysterectomy Cardiovascular: reports: Vascular surgery HEENT: reports: Cataracts, Tonsil/Adenoidectomy - Family & Social History Social History Notes: The patient is originally from [place] she has been to her for 50 years. Her was in the [employer] and they have been living in [facility] since 1965. They currently live in [place]. The patient has 2 children 1 of whom is bedside. The patient has never smoked, she does like to drink wine in the evening and denies any illicit drug use. - POLST Patient has POLST: No POLST Status: Full Code Meds/Allgy - Home Medications Home Medications: Ambulatory Orders Medication Instructions Recorded Confirmed Cholecalciferol (Vitamin D3) 4,000 unit PO DAILY 04/28/13 12/16/17 [Vitamin D3] Ezetimibe/Simvastatin [Vytorin 1 each PO DAILY 04/28/13 12/16/17 10-40 mg Tablet] FLUoxetine [PROzac] 20 mg PO DAILY 04/28/13 12/16/17 Omeprazole [PriLOSEC] 20 mg PO BID 04/28/13 12/16/17 Ezetimibe/Simvastatin [Vytorin 1 each PO 09/26/20 10-40 mg Tablet] Meclizine HCl [Antivert] 25 mg PO PRN 09/26/20 Memantine HCl [Namenda] 10 mg PO 09/26/20 09/26/20 Mirtazapine [Remeron] 15 mg PO DAILY 09/26/20 09/26/20 Potassium Chloride 10 meq PO DAILY #15 tablet.er 09/26/20 hydroCHLOROthiazide [Hydrodiuril] 25 mg PO DAILY 09/26/20 09/26/20 - Allergies Allergies/Adverse Reactions: Allergies Allergy/AdvReac Type Severity Reaction Status Date / Time amlodipine Allergy Unknown Verified 09/26/20 18:25 ciprofloxacin [From Cipro] Allergy Unknown Verified 09/26/20 18:25 lisinopril Allergy Anaphylaxis Verified 09/26/20 18:25 Review of Systems - Constitutional Constitutional: reports: Weakness - Respiratory Respiratory: reports: Cough, SOB at rest - Other Findings Other Findings: Unable to obtain due to AMS Exam - Vital Signs Vital Signs: Vital Signs x48h Temp Pulse Resp BP Pulse Ox 05/17/22 18:54 36.7 C 77 22 154/89 H 97 05/17/22 18:08 76 20 95 05/17/22 18:04 24 87 L 05/17/22 15:43 94 05/17/22 15:36 22 89 L 05/17/22 15:04 36.2 C L 92 18 122/71 95 - Physical Exam General Appearance: positive: No acute distress Eyes Bilateral: positive: PERRL ENT: positive: ENT inspection nml Neck: positive: Nml inspection Respiratory: positive: No respiratory distress, Breath sounds nml Cardiovascular: positive: Regular rate & rhythm Abdomen: positive: Non-tender, Nml bowel sounds Skin: positive: No rash Extremities: positive: No pedal edema Neurologic/Psychiatric: positive: Disoriented to person, Disoriented to place, Disoriented to time, Weakness Conclusion/Plan - Lab Results Fish Bones: 05/17/22 15:44 05/17/22 15:44 - Diagnostic Imaging Results Diagnostic Imaging Results: positive: Prelim report reviewed (A: Pneumonia Generalised weakness Falls Hypokalemia, Dehydration Abnormal LFT`s Dementia Plan: Admit in tele Follow cultures Start IV ceftriaxone and zithromax Dual neb q6h Repeat CBC, BMP in am Swallow eval by RN PT/OT Replace K and monitor Start IVF Monitor i/o, electrolytes) - Other Other Results/Comments: A: Pneumonia Generalised weakness Falls Hypokalemia, Dehydration Abnormal LFT`s Dementia Plan: Admit in tele Oxygen via NC. Keep Sa02 > 92% Follow cultures Start IV ceftriaxone and zithromax Dual neb q6h Repeat CBC, BMP in am Swallow eval by RN PT/OT Replace K and monitor Start IVF Monitor i/o, electrolytes Monitor LFT`s Supportive care Palliative care consult DVT prophylaxic Lovenox sq Full code Pt will be admitted as inpatient as more than 2 midnight stay is expected
[2022-05-17] MEDS ORDERED: IPRATROPIUM/ALBUTEROL 3 ML NEB INH PRN (20:34)
[2022-05-17] MEDS: SODIUM CHLORIDE 0.9% 1,000 ML IV SCH (20:46)
[2022-05-17] MEDS: POTASSIUM CHLOR 10 MEQ/100 ML 10 MEQ/100 ML BAG IV SCH (23:46)
[2022-05-18] MEDS: POTASSIUM CHLOR 10 MEQ/100 ML 10 MEQ/100 ML BAG IV SCH ×3 (00:51→02:53)
[2022-05-18] MEDS: SODIUM CHLORIDE FLUSH 0.9% 10 ML SYRINGE IVP SCH ×3 (00:56→18:36)
[2022-05-18 04:35] LABS: BASOPHILS % (AUTO) 0.2 %; EOSINOPHILS # (AUTO) 0.1 10^3/uL (0.0-0.7); EOSINOPHILS % (AUTO) 0.5 %; HCT - HEMATOCRIT 39.5 % (37.0-47.0); LYMPHOCYTES # (AUTO) 0.8 10^3/uL (1.5-3.5); LYMPHOCYTES % (AUTO) 5.5 %; MEAN CORPUSCULAR HEMOGLOBIN 29.2 pg (27.0-31.0); MEAN CORPUSCULAR HGB CONC 32.9 g/dL (32.0-36.0); MEAN CORPUSCULAR VOLUME 88.8 fL (81.0-99.0); MEAN PLATELET VOLUME 10.4 fL (7.9-10.8); MONOCYTES # (AUTO) 0.9 10^3/uL (0.0-1.0); MONOCYTES % (AUTO) 6.3 %; NEUTROPHILS # (AUTO) 12.2 10^3/uL (1.5-6.6); NEUTROPHILS % (AUTO) 86.6 %; PLT - PLATELET COUNT 285 10^3/uL (130-450); RED BLOOD COUNT 4.45 10^6/uL (4.20-5.40); RED CELL DISTRIBUTION WIDTH 14.5 % (12.0-15.0); WHITE BLOOD COUNT 14.1 x10^3/uL (4.8-10.8)
[2022-05-18 04:44] LABS: CALCIUM 8.6 mg/dL (8.5-10.3); CREATININE 0.5 mg/dL (0.4-1.0); POTASSIUM 3.5 mmol/L (3.5-5.0)
[2022-05-18] MEDS: SODIUM CHLORIDE 0.9% 1,000 ML IV SCH (06:08)
[2022-05-18] MEDS: cefTRIAXone 1 GM in SODIUM CHLORIDE 0.9% MINIBAG 100 ML IV SCH (08:09)
[2022-05-18] MEDS: ENOXAPARIN 40 MG/0.4 ML SYRINGE SUBQ SCH (08:10)
[2022-05-18] MEDS: AZITHROMYCIN INJ 500 MG in SODIUM CHLORIDE 0.9% 250 ML IV SCH (08:54)
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
--- NOTE | 2022-05-18 11:27 | PROVIDER PROGRESS NOTE ---
Subjective - Prog Note Date Prog Note Date: 05/18/22 Prog Note Time: 11:25 - Subjective Subjective: She does open her eyes to voice. I do asked her questions and she will shake her head no or yes but I am not really sure if she understands what I am asking. She is mute. Does not verbally respond. She does open her eyes to her family but does not appear to recognize them. She is not wanting to eat or drink. Current Medications - Current Medications Current Medications: Active Medications Acetaminophen (Acetaminophen 325 Mg Tablet) 650 mg PO Q4HR PRN PRN Reason: Pain 1 to 4, or Fever Albuterol/Ipratropium (Ipratropium/Albuterol 3 Ml Neb) 3 ml INH Q4HR PRN PRN Reason: Wheezing Enoxaparin Sodium (Enoxaparin 40 Mg/0.4 Ml Syringe) 40 mg SUBQ DAILY [facility] Last Admin: 05/18/22 08:10 Dose: 40 mg Sodium Chloride (Normal Saline 0.9%) 1,000 mls @ 100 mls/hr IV .Q10H SHERRY Stop: 05/18/22 14:59 Last Infusion: 05/18/22 10:02 Dose: 100 mls/hr Azithromycin 500 mg/ Sodium (Chloride) 250 mls @ 250 mls/hr IV DAILY [facility] Stop: 05/20/22 09:59 Last Infusion: 05/18/22 09:55 Dose: Infused Ceftriaxone Sodium 1 gm/ (Sodium Chloride) 100 mls @ 200 mls/hr IV DAILY SHERRY Stop: 05/22/22 09:29 Last Infusion: 05/18/22 08:45 Dose: Infused Ondansetron HCl (Ondansetron Odt 4 Mg Tablet) 4 mg TL Q6HR PRN PRN Reason: Nausea / Vomiting Ondansetron HCl (Ondansetron 4 Mg/2 Ml Vial) 4 mg IVP Q6HR PRN PRN Reason: Nausea / Vomiting Oxycodone HCl (Oxycodone 5 Mg Tablet) 5 mg PO Q4HR PRN PRN Reason: Pain 5 to 7 Sodium Chloride (Sodium Chloride Flush 0.9% 10 Ml Syringe) 10 ml IVP PRN PRN PRN Reason: NEEDED PER PROVIDER ORDERS Sodium Chloride (Sodium Chloride Flush 0.9% 10 Ml Syringe) 10 ml IVP 0100,0900,1700 SHERRY Last Admin: 05/18/22 08:10 Dose: Not Given Ezetimibe/Simvastatin [Vytorin 10-40 mg Tablet] 1 each PO QPM 04/28/13 FLUoxetine [PROzac] 20 mg PO DAILY 04/28/13 Omeprazole [PriLOSEC] 20 mg PO DAILY 04/28/13 Memantine HCl [Namenda] 10 mg PO DAILY 09/26/20 OLANZapine [Olanzapine] 5 mg PO DAILY 05/18/22 traZODone [Desyrel] 25 mg PO QPM 05/18/22 Objective - Vital Signs/Intake & Output Reviewed Vital Signs: Yes Vital Signs: Vital Signs x48h Temp Pulse Resp BP Pulse Ox 05/18/22 07:35 36.5 C 74 18 121/58 L 96 Intake & Output: Intake & Output 05/15/22 05/16/22 05/17/22 05/18/22 23:59 23:59 23:59 23:59 Intake Total 380 1746.667 Output Total 0 500 Balance 380 1246.667 - Objective General Appearance: positive: Lethargic, Other (Frail elderly female, responsive to voice and that she opens eyes but nonverbal.) Eyes Bilateral: positive: PERRL, EOMI ENT: positive: Dry mucous membranes, Other (Cracked lips. Poor dentition.) Neck: positive: No JVD. negative: Stiff neck Respiratory: positive: No respiratory distress. negative: Wheezes, Rales, Rhonchi (But she does have tubular breath sounds of her upper airway. Coarse s ounding. Unlabored. Slow and shallow respiration) Cardiovascular: positive: Regular rate & rhythm. negative: Gallop/S4, Friction rub Abdomen: positive: Non-tender, No organomegaly, Nml bowel sounds, No distention Skin: positive: Warm, Dry. negative: Pallor Extremities: positive: Full ROM, Other (Severely decreased muscle mass, cachectic). negative: No pedal edema Neurologic/Psychiatric: positive: CN's nml (2-12), Motor nml (But generalized weakness, no focal deficits.), Disoriented to person, Disoriented to place, Disoriented to time, Depressed mood/affect - Lab Results Fish Bones: 05/18/22 04:16 05/18/22 04:16 Other Labs: Lab Results x24hrs 05/18/22 05/18/22 05/17/22 Range/Units 04:16 04:16 18:14 WBC 14.1 H (4.8-10.8) x10^3/uL RBC 4.45 (4.20-5.40) 10^6/uL Hgb 13.0 (12.0-16.0) g/dL Hct 39.5 (37.0-47.0) % MCV 88.8 (81.0-99.0) fL MCH 29.2 (27.0-31.0) pg MCHC 32.9 (32.0-36.0) g/dL RDW 14.5 (12.0-15.0) % Plt Count 285 (130-450) 10^3/uL MPV 10.4 (7.9-10.8) fL Neut # (Auto) 12.2 H (1.5-6.6) 10^3/uL Lymph # (Auto) 0.8 L (1.5-3.5) 10^3/uL Webb # (Auto) 0.9 (0.0-1.0) 10^3/uL Eos # (Auto) 0.1 (0.0-0.7) 10^3/uL Baso # (Auto) 0.0 (0.0-0.1) 10^3/uL Absolute Nucleated RBC 0.00 x10^3/uL Nucleated RBC % 0.0 /100WBC Sodium 138 (135-145) mmol/L Potassium 3.5 (3.5-5.0) mmol/L Chloride 107 (101-111) mmol/L Carbon Dioxide 23 (21-32) mmol/L Anion Gap 8.0 (6-13) BUN 20 (6-20) mg/dL Creatinine 0.5 (0.4-1.0) mg/dL Estimated GFR (MDRD) 117 (>89) Glucose 126 H (70-100) mg/dL Lactic Acid (0.5-2.2) mmol/L Calcium 8.6 (8.5-10.3) mg/dL Total Bilirubin (0.2-1.0) mg/dL AST (10-42) IU/L ALT (10-60) IU/L Alkaline Phosphatase (42-121) IU/L Troponin I High Sens (2.3-14.8) ng/L B-Natriuretic Peptide (5-100) pg/mL Total Protein (6.7-8.2) g/dL Albumin (3.2-5.5) g/dL Globulin (2.1-4.2) g/dL Albumin/Globulin Ratio (1.0-2.2) Lipase (22-51) U/L TSH (0.34-5.60) uIU/mL Thyroxine (T4) (6.09-12.23) ug/dL Urine Color Urine Clarity (CLEAR) Urine pH (5.0-7.5) PH Ur Specific Ira (1.002-1.030) Urine Protein (NEGATIVE) mg/dL Urine Glucose (UA) (NEGATIVE) mg/dL Urine Ketones (NEGATIVE) mg/dL Urine Occult Blood (NEGATIVE) Urine Nitrite (NEGATIVE) Urine Bilirubin (NEGATIVE) Urine Urobilinogen (NORMAL) E.U./dL Ur Leukocyte Esterase (NEGATIVE) Urine RBC (0-5) /HPF Urine WBC (0-5) /HPF Ur Squamous Epith Cells (<= Few) Amorphous Sediment /LPF Urine Bacteria (None Seen) /HPF Ur Microscopic Review Urine Culture Comments Nasal Adenovirus (PCR) NOT DETECTED Nasal B. parapertussis DNA (PCR) NOT DETECTED Nasal Coronavir 229E PCR NOT DETECTED Nasal Coronavir HKU1 PCR NOT DETECTED Nasal Coronavir NL63 PCR NOT DETECTED Nasal Coronavir OC43 PCR NOT DETECTED Nasal Enterovir/Rhinovir PCR NOT DETECTED Nasal Influenza B PCR NOT DETECTED Nasal Influenza A PCR NOT DETECTED Nasal Parainfluen 1 PCR NOT DETECTED Nasal Parainfluen 2 PCR NOT DETECTED Nasal Parainfluen 3 PCR NOT DETECTED Nasal Parainfluen 4 PCR NOT DETECTED Nasal RSV (PCR) NOT DETECTED Nasal B.pertussis DNA PCR NOT DETECTED Nasal C.pneumoniae (PCR) NOT DETECTED Yogesh Human Metapneumo PCR NOT DETECTED Nasal M.pneumoniae (PCR) NOT DETECTED Nasal SARS-CoV-2 (PCR) NOT DETECTED 05/17/22 05/17/22 05/17/22 Range/Units 16:33 15:44 15:44 WBC (4.8-10.8) x10^3/uL RBC (4.20-5.40) 10^6/uL Hgb (12.0-16.0) g/dL Hct (37.0-47.0) % MCV (81.0-99.0) fL MCH (27.0-31.0) pg MCHC (32.0-36.0) g/dL RDW (12.0-15.0) % Plt Count (130-450) 10^3/uL MPV (7.9-10.8) fL Neut # (Auto) (1.5-6.6) 10^3/uL Lymph # (Auto) (1.5-3.5) 10^3/uL Webb # (Auto) (0.0-1.0) 10^3/uL Eos # (Auto) (0.0-0.7) 10^3/uL Baso # (Auto) (0.0-0.1) 10^3/uL Absolute Nucleated RBC x10^3/uL Nucleated RBC % /100WBC Sodium (135-145) mmol/L Potassium (3.5-5.0) mmol/L Chloride (101-111) mmol/L Carbon Dioxide (21-32) mmol/L Anion Gap (6-13) BUN (6-20) mg/dL Creatinine (0.4-1.0) mg/dL Estimated GFR (MDRD) (>89) Glucose (70-100) mg/dL Lactic Acid (0.5-2.2) mmol/L Calcium (8.5-10.3) mg/dL Total Bilirubin (0.2-1.0) mg/dL AST (10-42) IU/L ALT (10-60) IU/L Alkaline Phosphatase (42-121) IU/L Troponin I High Sens 17.5 H* (2.3-14.8) ng/L B-Natriuretic Peptide 93 (5-100) pg/mL Total Protein (6.7-8.2) g/dL Albumin (3.2-5.5) g/dL Globulin (2.1-4.2) g/dL Albumin/Globulin Ratio (1.0-2.2) Lipase (22-51) U/L TSH (0.34-5.60) uIU/mL Thyroxine (T4) (6.09-12.23) ug/dL Urine Color DARK YELLOW Urine Clarity HAZY (CLEAR) Urine pH 6.0 (5.0-7.5) PH Ur Specific Ira 1.025 (1.002-1.030) Urine Protein TRACE (NEGATIVE) mg/dL Urine Glucose (UA) NEGATIVE (NEGATIVE) mg/dL Urine Ketones 15 H (NEGATIVE) mg/dL Urine Occult Blood NEGATIVE (NEGATIVE) Urine Nitrite NEGATIVE (NEGATIVE) Urine Bilirubin SMALL H (NEGATIVE) Urine Urobilinogen 4 H (NORMAL) E.U./dL Ur Leukocyte Esterase NEGATIVE (NEGATIVE) Urine RBC 0-5 (0-5) /HPF Urine WBC 4-5 (0-5) /HPF Ur Squamous Epith Cells RARE Squamous (<= Few) Amorphous Sediment Few /LPF Urine Bacteria Rare (None Seen) /HPF Ur Microscopic Review INDICATED Urine Culture Comments NOT INDICATED Nasal Adenovirus (PCR) Nasal B. parapertussis DNA (PCR) Nasal Coronavir 229E PCR Nasal Coronavir HKU1 PCR Nasal Coronavir NL63 PCR Nasal Coronavir OC43 PCR Nasal Enterovir/Rhinovir PCR Nasal Influenza B PCR Nasal Influenza A PCR Nasal Parainfluen 1 PCR Nasal Parainfluen 2 PCR Nasal Parainfluen 3 PCR Nasal Parainfluen 4 PCR Nasal RSV (PCR) Nasal B.pertussis DNA PCR Nasal C.pneumoniae (PCR) Yogesh Human Metapneumo PCR Nasal M.pneumoniae (PCR) Nasal SARS-CoV-2 (PCR) 05/17/22 05/17/22 05/17/22 Range/Units 15:44 15:44 15:44 WBC (4.8-10.8) x10^3/uL RBC (4.20-5.40) 10^6/uL Hgb (12.0-16.0) g/dL Hct (37.0-47.0) % MCV (81.0-99.0) fL MCH (27.0-31.0) pg MCHC (32.0-36.0) g/dL RDW (12.0-15.0) % Plt Count (130-450) 10^3/uL MPV (7.9-10.8) fL Neut # (Auto) (1.5-6.6) 10^3/uL Lymph # (Auto) (1.5-3.5) 10^3/uL Webb # (Auto) (0.0-1.0) 10^3/uL Eos # (Auto) (0.0-0.7) 10^3/uL Baso # (Auto) (0.0-0.1) 10^3/uL Absolute Nucleated RBC x10^3/uL Nucleated RBC % /100WBC Sodium 142 (135-145) mmol/L Potassium 3.1 L (3.5-5.0) mmol/L Chloride 103 (101-111) mmol/L Carbon Dioxide 26 (21-32) mmol/L Anion Gap 13.0 (6-13) BUN 22 H (6-20) mg/dL Creatinine 0.6 (0.4-1.0) mg/dL Estimated GFR (MDRD) 95 (>89) Glucose 136 H (70-100) mg/dL Lactic Acid 1.0 (0.5-2.2) mmol/L Calcium 9.5 (8.5-10.3) mg/dL Total Bilirubin 1.5 H (0.2-1.0) mg/dL AST 100 H (10-42) IU/L ALT 196 H (10-60) IU/L Alkaline Phosphatase 222 H (42-121) IU/L Troponin I High Sens (2.3-14.8) ng/L B-Natriuretic Peptide (5-100) pg/mL Total Protein 6.9 (6.7-8.2) g/dL Albumin 2.6 L (3.2-5.5) g/dL Globulin 4.3 H (2.1-4.2) g/dL Albumin/Globulin Ratio 0.6 L (1.0-2.2) Lipase 27 (22-51) U/L TSH 0.58 (0.34-5.60) uIU/mL Thyroxine (T4) 11.29 (6.09-12.23) ug/dL Urine Color Urine Clarity (CLEAR) Urine pH (5.0-7.5) PH Ur Specific Ira (1.002-1.030) Urine Protein (NEGATIVE) mg/dL Urine Glucose (UA) (NEGATIVE) mg/dL Urine Ketones (NEGATIVE) mg/dL Urine Occult Blood (NEGATIVE) Urine Nitrite (NEGATIVE) Urine Bilirubin (NEGATIVE) Urine Urobilinogen (NORMAL) E.U./dL Ur Leukocyte Esterase (NEGATIVE) Urine RBC (0-5) /HPF Urine WBC (0-5) /HPF Ur Squamous Epith Cells (<= Few) Amorphous Sediment /LPF Urine Bacteria (None Seen) /HPF Ur Microscopic Review Urine Culture Comments Nasal Adenovirus (PCR) Nasal B. parapertussis DNA (PCR) Nasal Coronavir 229E PCR Nasal Coronavir HKU1 PCR Nasal Coronavir NL63 PCR Nasal Coronavir OC43 PCR Nasal Enterovir/Rhinovir PCR Nasal Influenza B PCR Nasal Influenza A PCR Nasal Parainfluen 1 PCR Nasal Parainfluen 2 PCR Nasal Parainfluen 3 PCR Nasal Parainfluen 4 PCR Nasal RSV (PCR) Nasal B.pertussis DNA PCR Nasal C.pneumoniae (PCR) Yogesh Human Metapneumo PCR Nasal M.pneumoniae (PCR) Nasal SARS-CoV-2 (PCR) 05/17/22 Range/Units 15:44 WBC 15.6 H (4.8-10.8) x10^3/uL RBC 4.93 (4.20-5.40) 10^6/uL Hgb 14.5 (12.0-16.0) g/dL Hct 42.7 (37.0-47.0) % MCV 86.6 (81.0-99.0) fL MCH 29.4 (27.0-31.0) pg MCHC 34.0 (32.0-36.0) g/dL RDW 14.5 (12.0-15.0) % Plt Count 322 (130-450) 10^3/uL MPV 10.2 (7.9-10.8) fL Neut # (Auto) 13.6 H (1.5-6.6) 10^3/uL Lymph # (Auto) 0.9 L (1.5-3.5) 10^3/uL Webb # (Auto) 1.0 (0.0-1.0) 10^3/uL Eos # (Auto) 0.0 (0.0-0.7) 10^3/uL Baso # (Auto) 0.0 (0.0-0.1) 10^3/uL Absolute Nucleated RBC 0.00 x10^3/uL Nucleated RBC % 0.0 /100WBC Sodium (135-145) mmol/L Potassium (3.5-5.0) mmol/L Chloride (101-111) mmol/L Carbon Dioxide (21-32) mmol/L Anion Gap (6-13) BUN (6-20) mg/dL Creatinine (0.4-1.0) mg/dL Estimated GFR (MDRD) (>89) Glucose (70-100) mg/dL Lactic Acid (0.5-2.2) mmol/L Calcium (8.5-10.3) mg/dL Total Bilirubin (0.2-1.0) mg/dL AST (10-42) IU/L ALT (10-60) IU/L Alkaline Phosphatase (42-121) IU/L Troponin I High Sens (2.3-14.8) ng/L B-Natriuretic Peptide (5-100) pg/mL Total Protein (6.7-8.2) g/dL Albumin (3.2-5.5) g/dL Globulin (2.1-4.2) g/dL Albumin/Globulin Ratio (1.0-2.2) Lipase (22-51) U/L TSH (0.34-5.60) uIU/mL Thyroxine (T4) (6.09-12.23) ug/dL Urine Color Urine Clarity (CLEAR) Urine pH (5.0-7.5) PH Ur Specific Ira (1.002-1.030) Urine Protein (NEGATIVE) mg/dL Urine Glucose (UA) (NEGATIVE) mg/dL Urine Ketones (NEGATIVE) mg/dL Urine Occult Blood (NEGATIVE) Urine Nitrite (NEGATIVE) Urine Bilirubin (NEGATIVE) Urine Urobilinogen (NORMAL) E.U./dL Ur Leukocyte Esterase (NEGATIVE) Urine RBC (0-5) /HPF Urine WBC (0-5) /HPF Ur Squamous Epith Cells (<= Few) Amorphous Sediment /LPF Urine Bacteria (None Seen) /HPF Ur Microscopic Review Urine Culture Comments Nasal Adenovirus (PCR) Nasal B. parapertussis DNA (PCR) Nasal Coronavir 229E PCR Nasal Coronavir HKU1 PCR Nasal Coronavir NL63 PCR Nasal Coronavir OC43 PCR Nasal Enterovir/Rhinovir PCR Nasal Influenza B PCR Nasal Influenza A PCR Nasal Parainfluen 1 PCR Nasal Parainfluen 2 PCR Nasal Parainfluen 3 PCR Nasal Parainfluen 4 PCR Nasal RSV (PCR) Nasal B.pertussis DNA PCR Nasal C.pneumoniae (PCR) Yogesh Human Metapneumo PCR Nasal M.pneumoniae (PCR) Nasal SARS-CoV-2 (PCR) Assessment/Plan - Problem List (1) Pneumonia Impression: In an elderly patient who has been gradually decreasing level of functionality, decreasing weight, and is most likely at end-of-life. Plan: Treat as community-acquired pneumonia with IV antibiotics Adjust on the basis of cultures of a become positive Focus on more comfort measures and increasing aggressive treatment Please see advance care planning conversation held and documentation was separate note Qualifiers: Pneumonia type: due to unspecified organism Laterality: unspecified laterality Lung location: unspecified part of lung Qualified Code(s): J18.9 - Pneumonia, unspecified organism (2) Dementia Impression: Gradually progressive over the last 8 years. Patient is no longer able to ambulate, has lost weight, no longer able to feed herself, and has become mute and verbally unresponsive. Plan: Hospice order Discharge to hospice when opening available Family will continue with her private duty caregivers they have hired and will also have their daughter come in for Charlotte Garza to help take care of her at her end-of-life Qualifiers: Dementia type: Alzheimer's (3) Failure to thrive in adult Impression: Gradually progressive over the last year. Due to end-stage dementia. (4) Severe protein-calorie malnutrition Impression: As described by and daughter. Due to dementia and lack of eating. (5) Elevated liver enzymes Impression: Unknown cause. Possible overuse of Tylenol but unclear. 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 Is on simvastatin. At this time there will be no extensive work-up. Goal is to keep the patient comfortable. (6) Hypokalemia Impression: resolved after supplement
--- NOTE | 2022-05-18 12:05 | PHARMACY PROGRESS NOTE ---
- Best Possible Medication History Admit Date and Time: 05/17/22 8507 Processed by: Pharmacy Medication History completed: Yes Patient Interview: Pt unable to participate Secondary Source(s): Spouse/Significant other (Per patient stopped ta kiana all medications.) As the person ultimately responsible for medication therapy, providers are able to order a medication from an existing home medication list in [facility] via the "Reconcile Routine" prior to Confirmation of that medication by support worker. Such practice is discouraged except when the physician, in their clinical judgment, deems that a medical need exists for a medication without regard to previous use.
[2022-05-19] MEDS: SODIUM CHLORIDE FLUSH 0.9% 10 ML SYRINGE IVP SCH ×4 (00:49→23:46)
[2022-05-19 04:49] LABS: BASOPHILS % (AUTO) 0.2 %; EOSINOPHILS # (AUTO) 0.1 10^3/uL (0.0-0.7); EOSINOPHILS % (AUTO) 0.4 %; HCT - HEMATOCRIT 37.6 % (37.0-47.0); HGB - HEMOGLOBIN 12.7 g/dL (12.0-16.0); LYMPHOCYTES # (AUTO) 0.9 10^3/uL (1.5-3.5); LYMPHOCYTES % (AUTO) 7.1 %; MEAN CORPUSCULAR HEMOGLOBIN 29.8 pg (27.0-31.0); MEAN CORPUSCULAR HGB CONC 33.8 g/dL (32.0-36.0); MEAN CORPUSCULAR VOLUME 88.3 fL (81.0-99.0); MEAN PLATELET VOLUME 9.8 fL (7.9-10.8); MONOCYTES # (AUTO) 0.8 10^3/uL (0.0-1.0); MONOCYTES % (AUTO) 6.4 %; NEUTROPHILS # (AUTO) 10.4 10^3/uL (1.5-6.6); NEUTROPHILS % (AUTO) 85.1 %; PLT - PLATELET COUNT 324 10^3/uL (130-450); RED BLOOD COUNT 4.26 10^6/uL (4.20-5.40); RED CELL DISTRIBUTION WIDTH 14.5 % (12.0-15.0); WHITE BLOOD COUNT 12.3 x10^3/uL (4.8-10.8)
[2022-05-19 05:01] LABS: CALCIUM 9.2 mg/dL (8.5-10.3); CREATININE 0.4 mg/dL (0.4-1.0); POTASSIUM 3.3 mmol/L (3.5-5.0)
[2022-05-19] MEDS: cefTRIAXone 1 GM in SODIUM CHLORIDE 0.9% MINIBAG 100 ML IV SCH (08:00)
[2022-05-19] MEDS: ENOXAPARIN 40 MG/0.4 ML SYRINGE SUBQ SCH (08:00)
[2022-05-19] MEDS: AZITHROMYCIN INJ 500 MG in SODIUM CHLORIDE 0.9% 250 ML IV SCH (08:39)
--- NOTE | 2022-05-19 09:27 | PROVIDER PROGRESS NOTE ---
Subjective - Prog Note Date Prog Note Date: 05/19/22 Prog Note Time: 09:25 - Subjective Subjective: This morning she is laying in bed, looking out the window, and turns when I walk in the room. She tracks me with her eyes. There is no voluntary, spontaneous conversation. She murmurs a response at me when I ask her how she is doing and if she has any pain. There is no spontaneous response on her part until I tell her that her hair is very pretty and she smiles suddenly. Otherwise there has been no new events per nursing overnight. No change in s tatus other than she is more awake today. Current Medications - Current Medications Current Medications: Active Medications Acetaminophen (Acetaminophen 325 Mg Tablet) 650 mg PO Q4HR PRN PRN Reason: Pain 1 to 4, or Fever Albuterol/Ipratropium (Ipratropium/Albuterol 3 Ml Neb) 3 ml INH Q4HR PRN PRN Reason: Wheezing Enoxaparin Sodium (Enoxaparin 40 Mg/0.4 Ml Syringe) 40 mg SUBQ DAILY [facility] Last Admin: 05/19/22 08:00 Dose: 40 mg Azithromycin 500 mg/ Sodium (Chloride) 250 mls @ 250 mls/hr IV DAILY [facility] Stop: 05/20/22 09:59 Last Admin: 05/19/22 08:39 Dose: 250 mls/hr Ceftriaxone Sodium 1 gm/ (Sodium Chloride) 100 mls @ 200 mls/hr IV DAILY [facility] Stop: 05/22/22 09:29 Last Infusion: 05/19/22 08:34 Dose: Infused Potassium Chloride/Dextrose/Sod Cl (D5ns W/20 Meq Kcl) 1,000 mls @ 83.333 ml s/hr IV .Q12H [facility] Ondansetron HCl (Ondansetron Odt 4 Mg Tablet) 4 mg TL Q6HR PRN PRN Reason: Nausea / Vomiting Ondansetron HCl (Ondansetron 4 Mg/2 Ml Vial) 4 mg IVP Q6HR PRN PRN Reason: Nausea / Vomiting Oxycodone HCl (Oxycodone 5 Mg Tablet) 5 mg PO Q4HR PRN PRN Reason: Pain 5 to 7 Potassium Chloride (Potassium Chloride 20 Meq/15 Ml Udc) 20 meq PO DAILYWM [facility] Sodium Chloride (Sodium Chloride Flush 0.9% 10 Ml Syringe) 10 ml IVP PRN PRN PRN Reason: NEEDED PER PROVIDER ORDERS Last Admin: 05/19/22 00:50 Dose: 10 ml Sodium Chloride (Sodium Chloride Flush 0.9% 10 Ml Syringe) 10 ml IVP 0100,0900,1700 SHERRY Last Admin: 05/19/22 08:00 Dose: 10 ml No Known Home Medications 05/18/22 Objective - Vital Signs/Intake & Output Reviewed Vital Signs: Yes Vital Signs: Vital Signs x48h Temp Pulse Resp BP Pulse Ox 05/19/22 07:56 134/87 H 05/19/22 07:31 37.0 C 83 18 167/84 H 94 Intake & Output: Intake & Output 05/16/22 05/17/22 05/18/22 05/19/22 23:59 23:59 23:59 23:59 Intake Total 380 2551.667 100 Output Total 0 650 400 Balance 380 1901.667 -300 - Objective General Appearance: positive: Other (Eyes open, listening to my voice, nonverbal. Laying comfortably in bed.) Eyes Bilateral: positive: PERRL, EOMI ENT: positive: Other (Lower lip is still cracked. But mucosa is much more moist than it was yesterday or the day before) Neck: positive: No JVD. negative: Stiff neck Respiratory: positive: No respiratory distress, Other (Slow, unlabored, shallow respirations with diminished breath sounds at the bases). negative: Wheezes, Rales, Rhonchi Cardiovascular: positive: Regular rate & rhythm. negative: Gallop/S4, Friction rub Abdomen: positive: No organomegaly, Nml bowel sounds, No distention Skin: positive: Warm, Dry Extremities: positive: Full ROM (On passive range of motion. She is not able to follow commands at my request to move her arms and legs) Neurologic/Psychiatric: positive: CN's nml (2-12), Motor nml, Disoriented to person, Disoriented to place, Disoriented to time, Other (Mute, nonverbal) - Lab Results Fish Bones: 05/19/22 04:32 05/19/22 04:32 Other Labs: Lab Results x24hrs 05/19/22 05/19/22 Range/Units 04:32 04:32 WBC 12.3 H (4.8-10.8) x10^3/uL RBC 4.26 (4.20-5.40) 10^6/uL Hgb 12.7 (12.0-16.0) g/dL Hct 37.6 (37.0-47.0) % MCV 88.3 (81.0-99.0) fL MCH 29.8 (27.0-31.0) pg MCHC 33.8 (32.0-36.0) g/dL RDW 14.5 (12.0-15.0) % Plt Count 324 (130-450) 10^3/uL MPV 9.8 (7.9-10.8) fL Neut # (Auto) 10.4 H (1.5-6.6) 10^3/uL Lymph # (Auto) 0.9 L (1.5-3.5) 10^3/uL [place] # (Auto) 0.8 (0.0-1.0) 10^3/uL Eos # (Auto) 0.1 (0.0-0.7) 10^3/uL Baso # (Auto) 0.0 (0.0-0.1) 10^3/uL Absolute Nucleated RBC 0.00 x10^3/uL Nucleated RBC % 0.0 /100WBC Sodium 146 H (135-145) mmol/L Potassium 3.3 L (3.5-5.0) mmol/L Chloride 109 (101-111) mmol/L Carbon Dioxide 24 (21-32) mmol/L Anion Gap 13.0 (6-13) BUN 16 (6-20) mg/dL Creatinine 0.4 (0.4-1.0) mg/dL Estimated GFR (MDRD) 151 (>89) Glucose 116 H (70-100) mg/dL Calcium 9.2 (8.5-10.3) mg/dL Assessment/Plan - Problem List (1) Pneumonia Impression: In an elderly patient who has been gradually decreasing level of functionality, decreasing weight, and is most likely at end-of-life. Blood cultures are negative. Plan: Treat as community-acquired pneumonia with IV antibiotics. Day #3. Adjust on the basis of cultures of a become positive Focus on more comfort measures and increasing aggressive treatment Please see advance care planning conversation held and documentation was separate note Plan is discharged on May 20 or depending on when the family can take home. I have already ordered hospice at discharge Qualifiers: Pneumonia type: due to unspecified organism Laterality: unspecified laterality Lung location: unspecified part of lung Qualified Code(s): J18.9 - Pneumonia, unspecified organism (2) Dementia Impression: Gradually progressive over the last 8 years. Patient is no longer able to ambulate, has lost weight, no longer able to feed herself, and has become mute and verbally unresponsive. Plan: Hospice order done Discharge to hospice when opening available Family will continue with her private duty caregivers they have hired and will also have their daughter come in for [place] to help take care of her at her end-of-life Qualifiers: Dementia type: Alzheimer's (3) Failure to thrive in adult Impression: Gradually progressive over the last year. Due to end-stage dementia. (4) Severe protein-calorie malnutrition Impression: As described by and daughter. Due to dementia and lack of eating. (5) Elevated liver enzymes Impression: Unknown cause. Possible overuse of Tylenol but unclear. 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 Is on simvastatin. At this time there will be no extensive work-up. Goal is to keep the patient comfortable. (6) Hypokalemia Impression: resolved after supplement but present again today. Supplement again. Qualifiers: Qualified Code(s): J18.9 - Pneumonia, unspecified organism
[2022-05-19] MEDS: POTASSIUM CHLORIDE 20 MEQ/15 ML UDC PO SCH (09:46)
[2022-05-19] MEDS: D5NS W/20 MEQ KCL 1,000 ML IV SCH ×2 (09:50→21:32)
[2022-05-20 05:32] LABS: BASOPHILS % (AUTO) 0.2 %; EOSINOPHILS # (AUTO) 0.1 10^3/uL (0.0-0.7); EOSINOPHILS % (AUTO) 1.2 %; HCT - HEMATOCRIT 39.4 % (37.0-47.0); HGB - HEMOGLOBIN 13.2 g/dL (12.0-16.0); LYMPHOCYTES # (AUTO) 1.2 10^3/uL (1.5-3.5); LYMPHOCYTES % (AUTO) 12.2 %; MEAN CORPUSCULAR HEMOGLOBIN 29.3 pg (27.0-31.0); MEAN CORPUSCULAR HGB CONC 33.5 g/dL (32.0-36.0); MEAN CORPUSCULAR VOLUME 87.6 fL (81.0-99.0); MEAN PLATELET VOLUME 9.9 fL (7.9-10.8); MONOCYTES # (AUTO) 0.6 10^3/uL (0.0-1.0); MONOCYTES % (AUTO) 6.1 %; NEUTROPHILS # (AUTO) 7.8 10^3/uL (1.5-6.6); NEUTROPHILS % (AUTO) 79.6 %; PLT - PLATELET COUNT 354 10^3/uL (130-450); RED CELL DISTRIBUTION WIDTH 14.4 % (12.0-15.0); WHITE BLOOD COUNT 9.8 x10^3/uL (4.8-10.8)
[2022-05-20 05:36] LABS: CALCIUM 8.7 mg/dL (8.5-10.3); CREATININE 0.5 mg/dL (0.4-1.0); POTASSIUM 3.4 mmol/L (3.5-5.0)
[2022-05-20] MEDS: POTASSIUM CHLORIDE 20 MEQ/15 ML UDC PO SCH (08:10)
[2022-05-20] MEDS: ENOXAPARIN 40 MG/0.4 ML SYRINGE SUBQ SCH (08:10)
[2022-05-20] MEDS: SODIUM CHLORIDE FLUSH 0.9% 10 ML SYRINGE IVP SCH ×2 (08:11→18:32)
[2022-05-20] MEDS: cefTRIAXone 1 GM in SODIUM CHLORIDE 0.9% MINIBAG 100 ML IV SCH (08:11)
[2022-05-20] MEDS: AZITHROMYCIN INJ 500 MG in SODIUM CHLORIDE 0.9% 250 ML IV SCH (08:52)
[2022-05-20] MEDS: D5NS W/20 MEQ KCL 1,000 ML IV SCH (09:57)
--- NOTE | 2022-05-20 12:05 | PROVIDER PROGRESS NOTE ---
Subjective - Prog Note Date Prog Note Date: 05/20/22 Prog Note Time: 12:00 - Subjective Subjective: Mute for the most part. But sitting up in bed. She says "I am okay" when asked how she is. Current Medications - Current Medications Current Medications: Active Medications Acetaminophen (Acetaminophen 325 Mg Tablet) 650 mg PO Q4HR PRN PRN Reason: Pain 1 to 4, or Fever Albuterol/Ipratropium (Ipratropium/Albuterol 3 Ml Neb) 3 ml INH Q4HR PRN PRN Reason: Wheezing Enoxaparin Sodium (Enoxaparin 40 Mg/0.4 Ml Syringe) 40 mg SUBQ DAILY [facility] Last Admin: 05/20/22 08:10 Dose: 40 mg Ceftriaxone Sodium 1 gm/ (Sodium Chloride) 100 mls @ 200 mls/hr IV DAILY [facility] Stop: 05/22/22 09:29 Last Infusion: 05/20/22 08:51 Dose: Infused Potassium Chloride/Dextrose/Sod Cl (D5ns W/20 Meq Kcl) 1,000 mls @ 83.333 mls/hr IV .Q12H [facility] Last Admin: 05/20/22 09:57 Dose: 83.3 mls/hr Ondansetron HCl (Ondansetron Odt 4 Mg Tablet) 4 mg TL Q6HR PRN PRN Reason: Nausea / Vomiting Ondansetron HCl (Ondansetron 4 Mg/2 Ml Vial) 4 mg IVP Q6HR PRN PRN Reason: Nausea / Vomiting Oxycodone HCl (Oxycodone 5 Mg Tablet) 5 mg PO Q4HR PRN PRN Reason: Pain 5 to 7 Potassium Chloride (Potassium Chloride 20 Meq/15 Ml Udc) 20 meq PO DAILYWM [facility] Last Admin: 05/20/22 08:10 Dose: 20 meq Sodium Chloride (Sodium Chloride Flush 0.9% 10 Ml Syringe) 10 ml IVP PRN PRN PRN Reason: NEEDED PER PROVIDER ORDERS Last Admin: 05/19/22 00:50 Dose: 10 ml Sodium Chloride (Sodium Chloride Flush 0.9% 10 Ml Syringe) 10 ml IVP 0100,0900,1700 [facility] Last Admin: 05/20/22 08:11 Dose: 10 ml No Known Home Medications 05/18/22 Objective - Vital Signs/Intake & Output Reviewed Vital Signs: Yes Vital Signs: Vital Signs x48h Temp Pulse Resp BP Pulse Ox 05/20/22 10:08 36.3 C L 20 05/20/22 08:00 35.9 C L 67 28 H 148/68 H 97 Intake & Output: Intake & Output 05/17/22 05/18/22 05/19/22 05/20/22 23:59 23:59 23:59 23:59 Intake Total 380 2551.667 0118.611 3811.274 Output Total 0 650 900 700 Balance 380 1901.667 934.996 590.274 - Objective General Appearance: positive: No acute distress, Alert, Other (comfortable, sitting in bed) Eyes Bilateral: positive: PERRL, EOMI Neck: positive: No JVD. negative: Stiff neck Respiratory: positive: No respiratory distress. negative: Wheezes, Rales, Rhonchi Cardiovascular: positive: Regular rate & rhythm Abdomen: positive: Non-tender, No organomegaly, Nml bowel sounds, No distention Skin: positive: Warm, Dry Extremities: positive: Full ROM, No pedal edema Neurologic/Psychiatric: positive: CN's nml (2-12), Motor nml, Disoriented to person, Disoriented to place, Disoriented to time, Other (This is the most awake and alert I seen her. She is looking around the room. Looking out the window. I did 1 or 2 word responses. She appears to be at baseline as we await her placement for hospice) - Lab Results Fish Bones: 05/20/22 05:20 05/20/22 05:20 Other Labs: Lab Results x24hrs 05/20/22 05/20/22 Range/Units 05:20 05:20 WBC 9.8 (4.8-10.8) x10^3/uL RBC 4.50 (4.20-5.40) 10^6/uL Hgb 13.2 (12.0-16.0) g/dL Hct 39.4 (37.0-47.0) % MCV 87.6 (81.0-99.0) fL MCH 29.3 (27.0-31.0) pg MCHC 33.5 (32.0-36.0) g/dL RDW 14.4 (12.0-15.0) % Plt Count 354 (130-450) 10^3/uL MPV 9.9 (7.9-10.8) fL Neut # (Auto) 7.8 H (1.5-6.6) 10^3/uL Lymph # (Auto) 1.2 L (1.5-3.5) 10^3/uL [place] # (Auto) 0.6 (0.0-1.0) 10^3/uL Eos # (Auto) 0.1 (0.0-0.7) 10^3/uL Baso # (Auto) 0.0 (0.0-0.1) 10^3/uL Absolute Nucleated RBC 0.00 x10^3/uL Nucleated RBC % 0.0 /100WBC Sodium 142 (135-145) mmol/L Potassium 3.4 L (3.5-5.0) mmol/L Chloride 107 (101-111) mmol/L Carbon Dioxide 26 (21-32) mmol/L Anion Gap 9.0 (6-13) BUN 10 (6-20) mg/dL Creatinine 0.5 (0.4-1.0) mg/dL Estimated GFR (MDRD) 117 (>89) Glucose 134 H (70-100) mg/dL Calcium 8.7 (8.5-10.3) mg/dL Assessment/Plan - Problem List (1) Pneumonia Impression: In an elderly patient who has been gradually decreasing level of functionality, decreasing weight, and is most likely at end-of-life. Blood cultures are negative. Plan: Treat as community-acquired pneumonia with IV antibiotics. Day #4. Adjust on the basis of cultures of a become positive and so far they have not. Focus on more comfort measures and increasing aggressive treatment Please see advance care planning conversation held and documentation was separate note Plan is discharged on May 21 depending on when the family can take home. I have already ordered hospice at discharge Qualifiers: Pneumonia type: due to unspecified organism Laterality: unspecified laterality Lung location: unspecified part of lung Qualified Code(s): J18.9 - Pneumonia, unspecified organism (2) Dementia Impression: Gradually progressive over the last 8 years. Patient is no longer able to ambul ate, has lost weight, no longer able to feed herself, and has become mute and verbally unresponsive. Plan: Hospice order done Discharge to hospice when opening available Family will continue with her private duty caregivers they have hired and will also have their daughter come in for [place] to help take care of her at her end-of-life Qualifiers: Dementia type: Alzheimer's (3) Failure to thrive in adult Impression: Gradually progressive over the last year. Due to end-stage dementia. (4) Severe protein-calorie malnutrition Impression: As described by and daughter. Due to dementia and lack of eating. (5) Elevated liver enzymes Impression: Unknown cause. Possible overuse of Tylenol but unclear. 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 Is on simvastatin. At this time there will be no extensive work-up. Goal is to keep the patient comfortable. (6) Hypokalemia Impression: resolved after supplement but present again today. Supplement again. Qualifiers: Qualified Code(s): J18.9 - Pneumonia, unspecified organism
[2022-05-21] MEDS: D5NS W/20 MEQ KCL 1,000 ML IV SCH ×2 (00:17→12:47)
[2022-05-21] MEDS: SODIUM CHLORIDE FLUSH 0.9% 10 ML SYRINGE IVP SCH ×3 (00:18→17:49)
[2022-05-21] MEDS: ENOXAPARIN 40 MG/0.4 ML SYRINGE SUBQ SCH (08:00)
[2022-05-21] MEDS: cefTRIAXone 1 GM in SODIUM CHLORIDE 0.9% MINIBAG 100 ML IV SCH (08:00)
[2022-05-21] MEDS: POTASSIUM CHLORIDE 20 MEQ/15 ML UDC PO SCH (08:01)
--- NOTE | 2022-05-21 13:01 | PROVIDER PROGRESS NOTE ---
Assessment/Plan - Problem List (1) Pneumonia Qualifiers: Qualified Code(s): J18.9 - Pneumonia, unspecified organism Assessment/Plan: Treating her community-acquired pneumonia with IV antibiotics. Day #5. Would adjust antibx on the basis of cultures if positive and so far they are not. At discharge, will transition to pill antibx, crushed, for about 2 more days. She is not needing suppl O2. Focus is on more comfort measures than on increasing aggressive treatment. Please see advance care planning conversation held and documentation was separate note (2) Dementia Impression: Dementia has been gradually progressive over the last 8 years. Patient is no longer able to ambulate, has lost weight, no longer able to feed herself, and has become mute and verbally unresponsive. Hospice ordered. Discharge to Hospice and an opening is available soon Today the reported to CORNELIUS, who told me, that the patient has rolled out of bed 5 times recently. She does not have a safe discharge home yet therefore. Tomorrow she will have a hospital bed delivered. Family will continue with her private duty caregivers they have hired and will also have daughter come from [place] to help take care of her at her end-of-life. Plan is to discharge home tomorrow I discussed #1 and #2 with the daughter who at bedside and simultaneously the and other daughter by phone, and answered all [email or web address] questions to their satisfaction Qualifiers: Dementia type: Alzheimer's (3) Failure to thrive in adult Impression: Gradually progressive over the last year. Due to end-stage dementia. (4) Severe protein-calorie malnutrition Impression: As described by and daughter. Due to dementia and lack of eating. (5) Elevated liver enzymes Impression: Unknown cause. Possible overuse of Tylenol but unclear. 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 Is on simvastatin. At this time there will be no extensive work-up. Goal is to keep the patient comfortable. (6) Hypokalemia Impression: Resolved after supplemented - Current Meds Current Meds: Current Medications Generic Name Dose Route Start Last Admin Trade Name Freq PRN Reason Stop Dose Admin Enoxaparin Sodium 40 mg 05/18/22 09:00 05/21/22 08:00 Enoxaparin 40 Mg/0.4 Ml Syringe SUBQ 40 mg DAILY SHERRY Administration Ceftriaxone Sodium 1 gm/ 100 mls @ 200 mls/hr 05/18/22 09:00 05/21/22 09:04 Sodium Chloride IV 05/22/22 09:29 Infused DAILY SHERRY Infusion Potassium Chloride/Dextrose/Sod Cl 1,000 mls @ 83.333 mls/hr 05/19/22 09:00 05/21/22 12:47 D5ns W/20 Meq Kcl IV 83.3 mls/hr .Q12H SHERRY Administration Potassium Chloride 20 meq 05/19/22 09:00 05/21/22 08:01 Potassium Chloride 20 Meq/15 Ml Udc PO 20 meq DAILYWM SHERRY Administration Sodium Chloride 10 ml 05/17/22 18:14 05/19/22 00:50 Sodium Chloride Flush 0.9% 10 Ml Syringe IVP 10 ml PRN PRN Administration NEEDED PER PROVIDER ORDERS Sodium Chloride 10 ml 05/18/22 01:00 05/21/22 08:01 Sodium Chloride Flush 0.9% 10 Ml Syringe IVP 10 ml 0100,0900,1700 SHERRY Administration - Lab Result Fish Bone Diagrams: 05/20/22 05:20 05/20/22 05:20 Subjective - Subjective Patient Reports: Resting Comfortably (Had gotten Ativan for anxiety) Objective Vital Signs: Vital Signs - 24 hr 05/20/22 05/21/22 05/21/22 16:00 00:00 07:21 Temperature 36.3 C L 36.4 C L 37.0 C Heart Rate [ 68 60 65 Brachial] Respiratory 24 14 22 Rate Blood Pressure 151/68 H 139/69 H 151/64 H [Right Brachial artery] O2 Saturation 94 97 96 Oxygen O2 Source Room air I&O (Last 24 Hrs): Intake and Output Totals x24h 05/19/22 05/20/22 05/21/22 23:59 23:59 23:59 Intake Total 1943.277 1684.274 1529.62 Output Total 900 1000 Balance 996.507 1728.274 1529.62 General: Alert, No acute distress HEENT: Mucous membr. moist/pink Neuro: Alert, Disoriented Cardiovascular: Regular rate Respiratory: No respiratory distress Abdomen: Soft Extremities: Other (1+ edema to mid shins) Skin: No rashes (Warm and dry) - Results Results: Laboratory Results WBC 9.8 x10^3/uL (4.8-10.8) 05/20/22 05:20 RBC 4.50 10^6/uL (4.20-5.40) 05/20/22 05:20 Hgb 13.2 g/dL (12.0-16.0) 05/20/22 05:20 Hct 39.4 % (37.0-47.0) 05/20/22 05:20 MCV 87.6 fL (81.0-99.0) 05/20/22 05:20 MCH 29.3 pg (27.0-31.0) 05/20/22 05:20 MCHC 33.5 g/dL (32.0-36.0) 05/20/22 05:20 RDW 14.4 % (12.0-15.0) 05/20/22 05:20 Plt Count 354 10^3/uL (130-450) 05/20/22 05:20 MPV 9.9 fL (7.9-10.8) 05/20/22 05:20 Neut # (Auto) 7.8 10^3/uL (1.5-6.6) H 05/20/22 05:20 Lymph # (Auto) 1.2 10^3/uL (1.5-3.5) L 05/20/22 05:20 [place] # (Auto) 0.6 10^3/uL (0.0-1.0) 05/20/22 05:20 Eos # (Auto) 0.1 10^3/uL (0.0-0.7) 05/20/22 05:20 Baso # (Auto) 0.0 10^3/uL (0.0-0.1) 05/20/22 05:20 Absolute Nucleated RBC 0.00 x10^3/uL 05/20/22 05:20 Nucleated RBC % 0.0 /100WBC 05/20/22 05:20 Sodium 142 mmol/L (135-145) 05/20/22 05:20 Potassium 3.4 mmol/L (3.5-5.0) L 05/20/22 05:20 Chloride 107 mmol/L (101-111) 05/20/22 05:20 Carbon Dioxide 26 mmol/L (21-32) 05/20/22 05:20 Anion Gap 9.0 (6-13) 05/20/22 05:20 BUN 10 mg/dL (6-20) 05/20/22 05:20 Creatinine 0.5 mg/dL (0.4-1.0) 05/20/22 05:20 Estimated GFR (MDRD) 117 (>89) 05/20/22 05:20 Glucose 134 mg/dL (70-100) H 05/20/22 05:20 Lactic Acid 1.0 mmol/L (0.5-2.2) 05/17/22 15:44 Calcium 8.7 mg/dL (8.5-10.3) 05/20/22 05:20 Total Bilirubin 1.5 mg/dL (0.2-1.0) H 05/17/22 15:44 AST 100 IU/L (10-42) H 05/17/22 15:44 ALT 196 IU/L (10-60) H 05/17/22 15:44 Alkaline Phosphatase 222 IU/L (42-121) H 05/17/22 15:44 Troponin I High Sens 17.5 ng/L (2.3-14.8) H* 05/17/22 15:44 B-Natriuretic Peptide 93 pg/mL (5-100) 05/17/22 15:44 Total Protein 6.9 g/dL (6.7-8.2) 05/17/22 15:44 Albumin 2.6 g/dL (3.2-5.5) L 05/17/22 15:44 Globulin 4.3 g/dL (2.1-4.2) H 05/17/22 15:44 Albumin/Globulin Ratio 0.6 (1.0-2.2) L 05/17/22 15:44 Lipase 27 U/L (22-51) 05/17/22 15:44 TSH 0.58 uIU/mL (0.34-5.60) 05/17/22 15:44 Thyroxine (T4) 11.29 ug/dL (6.09-12.23) 05/17/22 15:44 Urine Color DARK YELLOW 05/17/22 16:33 Urine Clarity HAZY (CLEAR) 05/17/22 16:33 Urine pH 6.0 PH (5.0-7.5) 05/17/22 16:33 Ur Specific [place] 1.025 (1.002-1.030) 05/17/22 16:33 Urine Protein TRACE mg/dL (NEGATIVE) 05/17/22 16:33 Urine Glucose (UA) NEGATIVE mg/dL (NEGATIVE) 05/17/22 16:33 Urine Ketones 15 mg/dL (NEGATIVE) H 05/17/22 16:33 Urine Occult Blood NEGATIVE (NEGATIVE) 05/17/22 16:33 Urine Nitrite NEGATIVE (NEGATIVE) 05/17/22 16:33 Urine Bilirubin SMALL (NEGATIVE) H 05/17/22 16:33 Urine Urobilinogen 4 E.U./dL (NORMAL) H 05/17/22 16:33 Ur Leukocyte Esterase NEGATIVE (NEGATIVE) 05/17/22 16:33 Urine RBC 0-5 /HPF (0-5) 05/17/22 16:33 Urine WBC 4-5 /HPF (0-5) 05/17/22 16:33 Ur Squamous Epith Cells RARE Squamous (<= Few) 05/17/22 16:33 Amorphous Sediment Few /LPF 05/17/22 16:33 Urine Bacteria Rare /HPF (None Seen) 05/17/22 16:33 Ur Microscopic Review INDICATED 05/17/22 16:33 Urine Culture Comments NOT INDICATED 05/17/22 16:33 Nasal Adenovirus (PCR) NOT DETECTED 05/17/22 18:14 Nasal B. parapertussis DNA (PCR) NOT DETECTED 05/17/22 18:14 Nasal Coronavir 229E PCR NOT DETECTED 05/17/22 18:14 Nasal Coronavir HKU1 PCR NOT DETECTED 05/17/22 18:14 Nasal Coronavir NL63 PCR NOT DETECTED 05/17/22 18:14 Nasal Coronavir OC43 PCR NOT DETECTED 05/17/22 18:14 Nasal Enterovir/Rhinovir PCR NOT DETECTED 05/17/22 18:14 Nasal Influenza B PCR NOT DETECTED 05/17/22 18:14 Nasal Influenza A PCR NOT DETECTED 05/17/22 18:14 Nasal Parainfluen 1 PCR NOT DETECTED 05/17/22 18:14 Nasal Parainfluen 2 PCR NOT DETECTED 05/17/22 18:14 Nasal Parainfluen 3 PCR NOT DETECTED 05/17/22 18:14 Nasal Parainfluen 4 PCR NOT DETECTED 05/17/22 18:14 Nasal RSV (PCR) NOT DETECTED 05/17/22 18:14 Nasal B.pertussis DNA PCR NOT DETECTED 05/17/22 18:14 Nasal C.pneumoniae (PCR) NOT DETECTED 05/17/22 18:14 Yogesh Human Metapneumo PCR NOT DETECTED 05/17/22 18:14 Nasal M.pneumoniae (PCR) NOT DETECTED 05/17/22 18:14 Nasal SARS-CoV-2 (PCR) NOT DETECTED 05/17/22 18:14 - Procedures Procedures: Procedures CATARAC PHACOEMULS/ASPIR (07/13/14) EXCISION OF ASCENDING COLON, ENDO, DIAGN (12/16/17) EXCISION OF DESCENDING COLON, ENDO, DIAGN (12/16/17) EXCISION OF DUODENUM, ENDO, DIAGN (12/16/17) INSERT LENS AT CATAR EXT (07/13/14) INSERTION OF INFUSION DEV INTO SUP VENA CAVA, PERC APPROACH (08/10/17)
[2022-05-22] MEDS: SODIUM CHLORIDE FLUSH 0.9% 10 ML SYRINGE IVP SCH ×2 (00:07→12:06)
[2022-05-22] MEDS: D5NS W/20 MEQ KCL 1,000 ML IV SCH (00:18)
[2022-05-22 07:30] VITALS: BP 148/70
[2022-05-22] MEDS: ENOXAPARIN 40 MG/0.4 ML SYRINGE SUBQ SCH (08:05)
[2022-05-22] MEDS: POTASSIUM CHLORIDE 20 MEQ/15 ML UDC PO SCH (08:05)
[2022-05-22] MEDS: cefTRIAXone 1 GM in SODIUM CHLORIDE 0.9% MINIBAG 100 ML IV SCH (08:06)
--- NOTE | 2022-05-22 09:25 | Discharge Plan ---
Discharge Plan Problem Reviewed?: Yes Disposition: 50 Hospice/Home DC/Xfer Condition: Poor Prescriptions: LORazepam [Ativan] 0.5 mg PO Q6H PRN #10 tablet PRN Reason: Anxiety Haloperidol Oral Soln [Haldol Oral Soln] 0.5 mg PO Q6H PRN #15 ml PRN Reason: Agitation levoFLOXacin [Levaquin] 750 mg PO ONCE #3 tablet Morphine Sulfate [Morphine Sulfate 2mg/ml soln] 10 - 20 mg PO Q4H PRN #30 ml PRN Reason: Dyspnea Acetaminophen [Tylenol] 650 mg [place] Q6H PRN #4 supp PRN Reason: Pain Or Fever > 38c (100.4f) Diet: Soft (Needs to be fed) Activity Restrictions: Activity as Tolerated Weight Bearing: No Weight Health Concerns: Patient was admitted with pneumonia and has underlying dementia. She received IV antibiotics and has a prescription for 1 more day of oral antibiotic. She is being discharged under the care of Hospice. Plan of Treatment: Comfort care, under the care of Hospice. Medications for pain, fever, agitation, anxiety and air hunger have been electronically prescribed to her [facility] in [place]. Care Goals: Comfort is the goal, with support for end-of-life. Assessment: The family is in agreement with the plan. No Smoking: If you smoke, Please STOP! Call for help.
--- NOTE | 2022-05-22 10:49 | DISCHARGE SUMMARY ---
Discharge Summary Admit Date: 05/17/22 Discharge Date: 05/22/22 Code Status: Do Not Attempt Resuscitation Condition at Discharge: Poor Discharge Disposition: 50 Hospice/Home DC/Xfer - HPI History of Present Illness: From the admission H&P of Telemedicine Supervisor Cell Efficiency: 87 y old female with PMH of HTN, Dementia , GERD [place] to the ER due to Generalised weakness and fall for last one week. Pt is unable to provide ay meaningful history so hiatory is by the julisa present at bedside. As per , pt has advanced dementia.She was able to ambulate woth walker until one week ago. For the last one week, she is very weak, unable to ambulate or swallow. She has not been able to take any meds. She has had about 5 falls in the last one week. Pt also has cough and her breathing has been faster and shall ow. No h/o SILVERMAN, chest pain, nausea, vomiting, diarrhea, constipation, symptoms, On presentaion, pt was afebrile, hypoxic. She was put on oxygen and Sao2 went up to 94%. Labs showed WBC 15.1, K 3.1, abnormal LFT. CXR showed LLL infiltrate. CT head showed no acute abnormalities. US abdomen and CT abdomen/pelvis showed no acute abnormalities. In ER, pt was given, IV ceftriaxone and zithromax. Patient is being admitted due to pneumonia, weakness, failure to thrive, hypokalemia, dehydation, abnormal LFT s. - HOSPITAL COURSE Hospital Course: (1) Pneumonia We treated her community-acquired pneumonia with IV antibiotics using Zithromax and Ceftriaxone and was discharged with 1 more day of oral Levaquin. She did not need suppl O2. (2) Dementia Dementia has been gradually progressive over the last 8 years. Patient is no longer able to ambulate, has lost weight, no longer able to feed herself, and silverman s become mute and verbally unresponsive. Hospice consult done and she was accepted under Hospice care at her home at the time of discharge. Comfort kit meds were prescribed for her. (3) Failure to thrive in adult Gradually progressive over the last year. Likely due to end-stage dementia. (4) Severe protein-calorie malnutrition As described by and daughter. It is due to dementia and lack of eating. (5) Elevated liver enzymes Unknown cause. Possible overuse of Tylenol but unclear. She used to be an alcoholic but has not had that for quite some time and was on simvastatin. At this time there was no extensive work-up. Goal was to keep the patient comfortable. (6) Hypokalemia Resolved after supplemented, then no labs done after mid-stay. - ALLERGIES Allergies/Adverse Reactions: Allergies Allergy/AdvReac Type Severity Reaction Status Date / Time amlodipine Allergy Unknown Verified 09/26/20 18:25 ciprofloxacin [From Cipro] Allergy Unknown Verified 09/26/20 18:25 lisinopril Allergy Anaphylaxis Verified 09/26/20 18:25 - MEDICATIONS Home Medications: Ambulatory Orders Medication Instructions Recorded Confirmed Acetaminophen [Tylenol] 650 mg PO Q4HR PRN tablet 05/22/22 Acetaminophen [Tylenol] 650 mg NJ Q6H PRN #4 supp 05/22/22 Haloperidol Oral Soln [Haldol Oral 0.5 mg PO Q6H PRN #15 ml 05/22/22 Soln] LORazepam [Ativan] 0.5 mg PO Q6H PRN #10 tablet 05/22/22 Morphine Sulfate [Morphine Sulfate 10 - 20 mg PO Q4H PRN #30 ml 05/22/22 2mg/ml soln] levoFLOXacin [Levaquin] 750 mg PO ONCE #3 tablet 05/22/22 - PHYSICAL EXAM AT DISCHARGE General Appearance: positive: No acute distress, Lethargic, Other (Asleep) Eyes Bilateral: positive: Normal inspection Neck: positive: Nml inspection, No JVD Respiratory: positive: No respiratory distress, Breath sounds nml Cardiovascular: positive: Regular rate & rhythm, No murmur Abdomen: positive: Non-tender, Nml bowel sounds, No distention Skin: positive: Warm, Dry Neurologic/Psychiatric: positive: Other (Lethargic, awakens, moves spontaneously, needs to be fed, needs complete assist for lifting and turning) - LABS Result Diagrams: 05/20/22 05:20 05/20/22 05:20 - TIME SPENT Time Spent in Discharge (Minutes): 35
[2022-05-22 21:07] LABS: MYCOPLASMA PNEUMONIAE IGG ABS <100 U/mL (0-99); MYCOPLASMA PNEUMONIAE IGM ABS <770 U/mL (0-769)
== END 2022-05-22 14:24 | disposition hospice, home (50) | DRG 193 ==
LOC: EDUNIT# → ED 14:54 → MS2 18:56
PROVIDERS: ADMIT Internal Medicine; ATTEND Internal Medicine
DX: J18.9 Pneumonia, unspecified organism (principal); E43 Unspecified severe protein-calorie malnutrition; Z20.822 Contact with and (suspected) exposure to COVID-19; G30.9 Alzheimer's disease, unspecified; F02.80 Dementia in other diseases classified elsewhere, unspecified severity, without behavioral disturbance, psychotic disturbance, mood disturbance, and anxiety; F03.90 Unspecified dementia, unspecified severity, without behavioral disturbance, psychotic disturbance, mood disturbance, and anxiety; R79.89 Other specified abnormal findings of blood chemistry; R09.02 Hypoxemia; R13.10 Dysphagia, unspecified; M25.552 Pain in left hip; R62.7 Adult failure to thrive; Z68.24 Body mass index [BMI] 24.0-24.9, adult; E87.6 Hypokalemia; R74.8 Abnormal levels of other serum enzymes; Z66 Do not resuscitate; Z91.81 History of falling; E86.0 Dehydration; F32.A Depression, unspecified; F41.9 Anxiety disorder, unspecified; I10 Essential (primary) hypertension; K21.9 Gastro-esophageal reflux disease without esophagitis; R53.1 Weakness; R41.0 Disorientation, unspecified; Z51.5 Encounter for palliative care
CPT/HCPCS: 36415; 70450; 71045; 73502; 74176; 76705; 80048; 80053; 81001; 83605; 83690; 83880; 84436; 84443; 84484; 85025; 86738; 87040; 87633; 93005; 96374; 99283; 99285; A9270; J1650; 81003; 87086

== ENCOUNTER 2022-05-22 14:30 | Outpatient (CLI) | payer MEDICARE, OTHER | END 2022-05-22 14:31 | disposition hospice, home (50) | LOC: EMS 14:30 | PROVIDERS: ATTEND Internal Medicine | DX: F03.90 Unspecified dementia, unspecified severity, without behavioral disturbance, psychotic disturbance, mood disturbance, and anxiety (principal); Z74.01 Bed confinement status | CPT/HCPCS: A0425; A0428 ==